=== PATIENT | female | born 1945 | race Caucasian/White ===

== ENCOUNTER → 2016-07-06 | Outpatient (CLI) | payer MEDICARE ==
[2015-05-23 11:00] VITALS: BP 144/55
[~2016-07-06] MED LIST: ATOR20TA58 PO; BUPR150T20 PO; CALC-67 PO; CHOL100013 PO; DILT180C2 PO; FLUO20CA16 PO; FURO20TA3 PO; HYDR-2666 PO; HYDR-2678 PO; LEVO137T3 PO; LISI10TA2 PO; LUTE6CAP3 PO; METO25TA9 PO; NAPR500T3 PO; OMEG-33 PO; OMEP40CA5 PO; OXYC-244 PO; POTA10TA31 PO; VERA40TA PO; VIT1CAPS12 PO; ZOLP10TA PO
--- NOTE | 2016-07-06 11:16 | KCIC ---
Bilateral digital screening mammograms with CAD: HISTORY COMPARISON Comparison is made to previous studies dated 06/05/2015 and 05/06/2014. FINDINGS Breast density category B. The skin and nipples show no abnormalities. No abnormal lymph nodes are seen in the axilla. The breast parenchyma shows scattered fibroglandular density. There continues to be some nodularity in the anterior right breast which has not changed. There also continues to be some asymmetric parenchyma in the upper outer quadrants bilaterally which has not changed. There are no new dominant masses, suspicious calcifications or architectural distortions. Benign appearing calcifications are present IMPRESSION there continues to be some No evidence of malignancy. Recommend routine annual mammographic screening. This study was interpreted with the benefit of Computerized Aided Detection (CAD). Mammography is not 100% sensitive in detecting breast cancer. Therefore, a self breast exam and a clinical breast exam are very important. A negative mammogram does not negate a clinically suspicious finding and should not result in a delay in biopsying a clinically suspicious abnormality. BI-RADS category 2. Benign. This patient's information has been entered into a reminder system for the patient to be notified with the results of this examination and a target date for her next mammograms. Electronically signed by: Luciana Rangel MD (Jul 06, 2016 11:14:38)
== END | disposition home or self-care (01) ==
LOC: KCIC MAMMO 10:18
PROVIDERS: ATTEND Obstetrics & Gynecology
DX: Z12.31 Encounter for screening mammogram for malignant neoplasm of breast (principal)
CPT/HCPCS: G0202; 77067

== ENCOUNTER 2016-10-16 15:17 | Inpatient (IN) | payer MEDICARE ==
[~2016-10-16] VITALS: Ht 154.9 cm; Wt 78.9 kg
[~2016-10-16 15:17] MED LIST changes: +CALC-31 PO; -CALC-67 PO; -HYDR-2666 PO; +HYDR-2758 PO; -OXYC-244 PO; +OXYC-327 PO
[2016-10-16] MEDS ORDERED: IPRATRPIUM/ALBUTEROL 0.5/2.5MG 3 ML NEBU. NEB ONE (15:45)
[2016-10-16 16:14] LABS: BASO % 0 % (0-3); EOS % 2 % (0-3); HEMATOCRIT 37.3 % (36.0-47.0); LYMPH # 1.6 x10^3/uL (1.0-4.8); LYMPH % 15 % (24-48); MEAN CORPUSCULAR HEMOGLOBIN 31 pg (25-35); MEAN CORPUSCULAR HGB CONC 35 g/dL (31-37); MEAN CORPUSCULAR VOLUME 89 fL (79-100); MONO % 8 % (0-9); NEUT % 75 % (31-73); PLATELET COUNT 162 x10^3/uL (140-400); RED BLOOD COUNT 4.17 x10^6/uL (3.50-5.40); RED CELL DISTRIBUTION WIDTH 15.6 % (11.5-14.5); WHITE BLOOD COUNT 10.4 x10^3/uL (4.0-11.0)
--- NOTE | 2016-10-16 16:22 | PHYS DOC ---
Past Medical History Past Medical History: COPD, Depression, GERD, High Cholesterol, Hypertension, Hypothyroid, Other Additional Past Medical Histor: bradycardia, lung fibroids Past Surgical History: Tonsillectomy Additional Past Surgical Histo: X 2 BACK SURGERIES,RIGHT SHOULDER SURGERY, BENIGN BREAST BIOPSY,RIGHT LUNG Alcohol Use: Rarely Drug Use: None Adult General Chief Complaint Chief Complaint: SHORTNESS OF BREATH HPI HPI 70-year-old female presenting to the emergency department today with bradycardia and shortness of breath. She been short of breath for the past 3 days. She has a history of COPD and recently finished her prednisone. She is also had an upper respiratory tract infection recently as well. Location lungs. Duration intermittent. No alleviating or exacerbating factors. She has had a history of bradycardia in the past which her doctors thought was because she took too many medications. She is on diltiazem. Review of systems is negative for abdominal pain nausea vomiting diaphoresis. All other review of systems is negative unless otherwise noted in history of present illness. Pertinent physical exam findings: Lungs are wheezing bilaterally. No crackles. Bradycardic without a murmur. Otherwise soft nontender abdomen. The remainder the exam is unremarkable. ED course: 70-year-old female presenting with bradycardia. Patient's heart rate was in the 50s upon arrival. She was having significant wheezing bilaterally she was given a DuoNeb therapy. Otherwise labs were obtained along with chest x- ray. On reexamination the patient's lungs had improved. Because of the patient' s bradycardia felt that a short telemetry monitoring would be appropriate. Unfortunately at this time the patient does not meet acute inpatient criteria. The patient was then admitted to our hospital for further evaluation workup and care. Cardiology consult placed. Review of Systems Review of Systems SEE ABOVE. Current Medications Current Medications Current Medications Medications (Trade) Dose Ordered Sig/Jon Start Time Stop Time Status Last Admin Dose Admin Albuterol/ Ipratropium (Duoneb) 3 ml 1X ONCE 10/16/16 15:45 10/16/16 15:48 DC 10/16/16 16:47 3 ML Allergies Allergies Allergies Coded Allergies Type Severity Reaction Last Updated Verified iodine Allergy Severe 01/15/14 Yes shellfish derived Allergy Severe Rash 06/05/13 Yes Pentazocine Lactate Allergy Intermediate Rash 06/05/13 Yes ropinirole Allergy Intermediate 12/25/14 No tramadol Allergy Intermediate Nausea and Vomiting 12/20/14 No varenicline Allergy Intermediate 12/25/14 No Physical Exam Physical Exam Constitutional: Well developed, well nourished, no acute distress, non-toxic appearance. HENT: Normocephalic, atraumatic, bilateral external ears normal, oropharynx moist, no oral exudates, nose normal. [] Eyes: PERRLA, EOMI, conjunctiva normal, no discharge. Neck: Normal range of motion, no tenderness, supple, no stridor. Cardiovascular:Heart rate regular rhythm, no murmur [] Lungs & Thorax: see above Abdomen: Bowel sounds normal, soft, no tenderness, no masses, no pulsatile masses. [] Skin: Warm, dry, no erythema, no rash. [] Back: No tenderness, no CVA tenderness. Extremities: No tenderness, no cyanosis, no clubbing, ROM intact, no edema. [] Neurologic: Alert and oriented X 3, normal motor function, normal sensory function, no focal deficits noted. [] Psychologic: Affect normal, judgement normal, mood normal. [] Current Patient Data Vital Signs Vital Signs Date Time Temp Pulse Resp B/P (MAP) Pulse Ox O2 Delivery O2 Flow Rate FiO2 10/16/16 16:49 Room Air 10/16/16 16:48 60 127/63 (84) 95 10/16/16 15:17 98.1 24 98.1 Lab Values Laboratory Tests Test 10/16/16 16:00 White Blood Count 10.4 x10^3/uL (4.0-11.0) Red Blood Count 4.17 x10^6/uL (3.50-5.40) Hemoglobin 13.0 g/dL (12.0-15.5) Hematocrit 37.3 % (36.0-47.0) Mean Corpuscular Volume 89 fL (79-100) Mean Corpuscular Hemoglobin 31 pg (25-35) Mean Corpuscular Hemoglobin Concent 35 g/dL (31-37) Red Cell Distribution Width 15.6 % (11.5-14.5) H Platelet Count 162 x10^3/uL (140-400) Neutrophils (%) (Auto) 75 % (31-73) H Lymphocytes (%) (Auto) 15 % (24-48) L Monocytes (%) (Auto) 8 % (0-9) Eosinophils (%) (Auto) 2 % (0-3) Basophils (%) (Auto) 0 % (0-3) Neutrophils # (Auto) 7.8 x10^3uL (1.8-7.7) H Lymphocytes # (Auto) 1.6 x10^3/uL (1.0-4.8) Monocytes # (Auto) 0.8 x10^3/uL (0.0-1.1) Eosinophils # (Auto) 0.2 x10^3/uL (0.0-0.7) Basophils # (Auto) 0.0 x10^3/uL (0.0-0.2) Sodium Level 136 mmol/L (136-145) Potassium Level 3.9 mmol/L (3.5-5.1) Chloride Level 99 mmol/L (98-107) Carbon Dioxide Level 24 mmol/L (21-32) Anion Gap 13 (6-14) Blood Urea Nitrogen 27 mg/dL (7-20) H Creatinine 1.1 mg/dL (0.6-1.0) H Estimated GFR (Cockcroft-Gault) 48.8 Glucose Level 98 mg/dL (70-99) Calcium Level 8.7 mg/dL (8.5-10.1) Total Bilirubin 0.4 mg/dL (0.2-1.0) Direct Bilirubin 0.1 mg/dL (0.0-0.2) Aspartate Amino Transferase (AST) 97 U/L (15-37) H Alanine Aminotransferase (ALT) 70 U/L (14-59) H Alkaline Phosphatase 69 U/L (46-116) Troponin I Quantitative < 0.017 ng/mL (0.000-0.055) GW-Tcm-M-Type Natriuretic Peptide 320 pg/mL (0-124) H Total Protein 6.7 g/dL (6.4-8.2) Albumin 3.2 g/dL (3.4-5.0) L Lipase 254 U/L (73-393) Laboratory Tests 10/16/16 16:00 Laboratory Tests 10/16/16 16:00 EKG EKG Sinus rhythm with a bradycardic rate. ST segments congruent. Otherwise unremarkable. Reviewed by myself. Radiology/Procedures Radiology/Procedures Chest x-ray reviewed by myself shows no obvious infiltrate or pneumothorax present. No obvious acute cardiopulmonary process present.[] Course & Med Decision Making Course & Med Decision Making Pertinent Labs and Imaging studies reviewed. (See chart for details) [] Dragon Disclaimer Dragon Disclaimer This electronic medical record was generated, in whole or in part, using a voice recognition dictation system. Departure Departure Impression: Primary Impression: Bradycardia Additional Impression: COPD exacerbation Disposition: ADMITTED INPATIENT Admitting Physician: Eladia Reddy Condition: STABLE Referrals: ROLO CLAYTON APRN (PCP) Problem Qualifiers MIKHAIL COLLINS MD Oct 16, 2016 16:22
[2016-10-16 16:41] LABS: CALCIUM 8.7 mg/dL (8.5-10.1); CREATININE 1.1 mg/dL (0.6-1.0); GFR 48.8; POTASSIUM 3.9 mmol/L (3.5-5.1)
[2016-10-16 16:51] LABS: ALBUMIN 3.2 g/dL (3.4-5.0); DIRECT BILIRUBIN 0.1 mg/dL (0.0-0.2); TOTAL BILIRUBIN 0.4 mg/dL (0.2-1.0); TOTAL PROTEIN 6.7 g/dL (6.4-8.2)
[2016-10-16] MEDS ORDERED: FLUT1DIS3 IH (17:17)
[2016-10-16 19:15] VITALS: BP 128/52
[2016-10-16] MEDS ORDERED: IPRATRPIUM/ALBUTEROL 0.5/2.5MG 3 ML NEBU. NEB PRN (19:15)
[2016-10-16] MEDS ORDERED: ACETAMINOPHEN 325 MG TABLET. PO PRN (19:15)
[2016-10-16] MEDS: IBUPROFEN 600 MG TABLET. PO PRN (22:15)
[2016-10-16 23:51] VITALS: BP 112/42
[2016-10-17 03:13] VITALS: BP 137/48
[2016-10-17] MEDS ORDERED: OLME40TA16 PO (05:34)
[2016-10-17] MEDS ORDERED: ASPI-630 PO (05:34)
[2016-10-17] MEDS ORDERED: METO25TA4 PO (05:34)
[2016-10-17] MEDS: IBUPROFEN 600 MG TABLET. PO PRN ×3 (05:44→21:22)
[2016-10-17 07:00] VITALS: BP 137/59
--- NOTE | 2016-10-17 08:56 | RAD ---
EXAM: Chest one view. HISTORY: Shortness of breath, hypotension. COMPARISON: 05/21/2015. FINDINGS: A frontal view of the chest is obtained. There is a lung suture line in the right apex with mild right-sided volume loss. There is mild scarring in the right base. There are no confluent infiltrates. There is no pneumothorax or pleural effusion. The heart is mildly enlarged. There are atherosclerotic calcifications of the aorta. Instrumented anterior cervical discectomy and fusion changes are noted. Chronic right rib fractures are noted. IMPRESSION: 1. Mild cardiomegaly.
[2016-10-17 09:52] LABS: BILIRUBIN,URINE NEGATIVE (NEG); GLUCOSE,URINE NEGATIVE (NEG); NITRITE,URINE NEGATIVE (NEG); PROTEIN,URINE NEGATIVE (NEG-TRACE); UROBILINOGEN,URINE 0.2 mg/dL (0.2 mg/dL)
[2016-10-17 10:04] LABS: BACTERIA,URINE 0 /HPF (0-FEW); RBC,URINE 0 /HPF (0-2); SQUAMOUS EPITHELIAL CELL,UR FEW /LPF; WBC,URINE 0 /HPF (0-4)
[2016-10-17 10:50] VITALS: BP 138/63
--- NOTE | 2016-10-17 12:27 | EKG ---
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
--- NOTE | 2016-10-17 13:30 | PDOC ---
OBJECTIVE Vital Signs Vital Signs Date Time Temp Pulse Resp B/P (MAP) Pulse Ox O2 Delivery O2 Flow Rate FiO2 10/17/16 10:50 97.6 70 16 138/63 (88) 95 Room Air 97.6 10/17/16 08:00 Room Air 10/17/16 07:00 97.7 68 14 137/59 (85) 94 Room Air 97.7 10/17/16 03:13 97.8 39 16 137/48 (77) 94 Room Air 97.8 10/16/16 23:51 98.1 39 16 112/42 (65) 96 Room Air 98.1 10/16/16 21:14 Room Air 10/16/16 20:00 Room Air 10/16/16 19:42 Room Air 10/16/16 19:15 97.7 63 18 128/52 (77) 94 Room Air 97.7 10/16/16 17:18 60 145/63 (90) 94 10/16/16 16:49 Room Air 10/16/16 16:48 60 127/63 (84) 95 10/16/16 16:18 60 158/56 (90) 95 10/16/16 15:48 66 124/60 (81) 93 10/16/16 15:18 52 103/58 (73) 96 Room Air 10/16/16 15:17 98.1 53 24 103/58 (73) 95 Room Air 98.1 ASSESSMENT/PLAN Assessment/Plan [id number] H&P dictated Problems: COMMENT Lab Laboratory Tests Test 10/16/16 16:00 10/17/16 08:29 White Blood Count 10.4 x10^3/uL (4.0-11.0) Red Blood Count 4.17 x10^6/uL (3.50-5.40) Hemoglobin 13.0 g/dL (12.0-15.5) Hematocrit 37.3 % (36.0-47.0) Mean Corpuscular Volume 89 fL (79-100) Mean Corpuscular Hemoglobin 31 pg (25-35) Mean Corpuscular Hemoglobin Concent 35 g/dL (31-37) Red Cell Distribution Width 15.6 % (11.5-14.5) Platelet Count 162 x10^3/uL (140-400) Neutrophils (%) (Auto) 75 % (31-73) Lymphocytes (%) (Auto) 15 % (24-48) Monocytes (%) (Auto) 8 % (0-9) Eosinophils (%) (Auto) 2 % (0-3) Basophils (%) (Auto) 0 % (0-3) Neutrophils # (Auto) 7.8 x10^3uL (1.8-7.7) Lymphocytes # (Auto) 1.6 x10^3/uL (1.0-4.8) Monocytes # (Auto) 0.8 x10^3/uL (0.0-1.1) Eosinophils # (Auto) 0.2 x10^3/uL (0.0-0.7) Basophils # (Auto) 0.0 x10^3/uL (0.0-0.2) Sodium Level 136 mmol/L (136-145) Potassium Level 3.9 mmol/L (3.5-5.1) Chloride Level 99 mmol/L (98-107) Carbon Dioxide Level 24 mmol/L (21-32) Anion Gap 13 (6-14) Blood Urea Nitrogen 27 mg/dL (7-20) Creatinine 1.1 mg/dL (0.6-1.0) Estimated GFR (Cockcroft-Gault) 48.8 Glucose Level 98 mg/dL (70-99) Calcium Level 8.7 mg/dL (8.5-10.1) Total Bilirubin 0.4 mg/dL (0.2-1.0) Direct Bilirubin 0.1 mg/dL (0.0-0.2) Aspartate Amino Transf (AST/SGOT) 97 U/L (15-37) Alanine Aminotransferase (ALT/SGPT) 70 U/L (14-59) Alkaline Phosphatase 69 U/L (46-116) Troponin I Quantitative < 0.017 ng/mL (0.000-0.055) IC-Soj-C-Type Natriuretic Peptide 320 pg/mL (0-124) Total Protein 6.7 g/dL (6.4-8.2) Albumin 3.2 g/dL (3.4-5.0) Lipase 254 U/L (73-393) Urine Collection Type Unknown Urine Color Yellow Urine Clarity Clear Urine pH 6.0 Urine Specific [place] 1.010 Urine Protein Negative mg/dL (NEG-TRACE) Urine Glucose (UA) Negative mg/dL (NEG) Urine Ketones (Stick) Negative mg/dL (NEG) Urine Blood Negative (NEG) Urine Nitrite Negative (NEG) Urine Bilirubin Negative (NEG) Urine Urobilinogen Dipstick 0.2 mg/dL (0.2 mg/dL) Urine Leukocyte Esterase Negative (NEG) Urine RBC 0 /HPF (0-2) Urine WBC 0 /HPF (0-4) Urine Squamous Epithelial Cells Few /LPF Urine Bacteria 0 /HPF (0-FEW) Urine Hyaline Casts Few /HPF Urine Mucus Mod /LPF JAMI PEARL MD Oct 17, 2016 13:30
--- NOTE | 2016-10-17 14:09 | PREOP HP ---
DATE OF SERVICE: 10/16/2016 ROOM: #672. HISTORY OF PRESENT ILLNESS: The patient is a 70-year-old lady who presented to the Emergency Room complaining of shortness of breath. She does have previous history of COPD, and she recently finished a course of tapering prednisone and was feeling better, but suddenly she became more short of breath, and she also felt weak and noticed that her pulse has been slow. She has had an episode of bradycardia in the past which apparently was documented. 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 She states that she has been treated in the past for tachycardia, and she has been found to be bradycardic on several occasions in the past. She does have high blood pressure, and she does take medication to control that including diltiazem and metoprolol both of which can cause bradycardia. However, she also has mentioned that she does have a previous history of tachycardia. PAST MEDICAL HISTORY: Significant for peripheral neuropathy, atrial fibrillation, hyperlipidemia, hypertension, COPD, asthma, interstitial lung disease, irritable bowel syndrome, and gastroesophageal reflux disease. She has had a benign breast biopsy, osteoarthritis, rotator cuff and cervical stenosis, osteoporosis, degenerative disk disease, carpal tunnel syndrome, history of arthroscopy on her right knee, bunionectomy on the left, back pain, hypothyroidism, thyroidectomy for thyroid cancer, parathyroidectomy, and depression. She also stated that she has history of throat cancer 5 years ago, tonsillectomy, adenoidectomy, neck pain, and macular degeneration. SOCIAL HISTORY: She was an alcoholic at some point and had been sober since 2011. She quit smoking 3 years ago, but has smoked for 40 years before that. IMMUNIZATION: She had her pneumonia vaccine and flu shot. FAMILY HISTORY: Positive for lung cancer in her father and hypertension. REVIEW OF SYSTEMS: CONSTITUTIONAL: Denies fever or chills. She is having fatigue. She denies weight loss. HEENT: Denies visual changes. Denies sore throat or congestion. RESPIRATORY: Denies cough, but she does have shortness of breath and wheezes at times. CARDIAC: She noticed bradycardia. Denies chest pain. GASTROINTESTINAL: She denies abdominal pain, nausea, vomiting, diarrhea, or constipation. GENITOURINARY: She does have stress incontinence. Denies dysuria. MUSCULOSKELETAL: She does have chronic back pain and osteoarthritis pain. NEUROLOGY: Denies any deficit. PHYSICAL EXAMINATION: GENERAL: She is alert and oriented, in no acute distress, cooperative. HEENT: Tympanic membranes clear. Pharynx clear. No sinus tenderness. NECK: Supple. No JVD, bruit, or cervical adenopathy. LUNGS: Clear to auscultation at this point. HEART: Regular rate and rhythm. ABDOMEN: Soft, nontender, no organomegaly, no masses, no bruits, no ascites. EXTREMITIES: No edema, clubbing, or cyanosis. NEUROLOGIC: Intact. IMPRESSION: 1. Bradycardia in the 30s, rule out sick sinus syndrome. Hold her blood pressure medications and consult Cardiology. 2. Acute exacerbation of chronic obstructive pulmonary disease, recently finished steroids. We will continue with bronchodilators. 3. Prerenal azotemia. 4. Hypertension and hypertensive cardiovascular disease. 5. Peripheral neuropathy. 6. Hypothyroidism. We will check her TSH. She is on thyroid supplementation after a thyroidectomy. 7. Degenerative joint disease. 8. Other medical problems as mentioned above in her past medical history. Dr. Zhu will resume her care in the morning. JAMI PEARL MD DR: YESENIA/chato JOB#: [id number] / [id number]
[2016-10-17] MEDS ORDERED: ALBUTEROL SULFATE 2.5 MG/3 ML NEBU. NEB PRN (14:30)
[2016-10-17 15:11] VITALS: BP 121/51
[2016-10-17] MEDS: ALBUTEROL SULFATE 2.5 MG/3 ML NEBU. NEB SCH ×2 (15:18→20:45)
[2016-10-17] MEDS: FLUoxetine HCL 20 MG CAPSULE PO SCH (15:19)
[2016-10-17] MEDS: ASPIRIN CHEWABLE 81 MG TABLET. PO SCH (15:20)
[2016-10-17] MEDS: LOSARTAN POTASSIUM 50 MG TABLET. PO SCH (15:20)
[2016-10-17] MEDS: PANTOPRAZOLE 40 MG TABLET.DR. PO SCH (15:20)
--- NOTE | 2016-10-17 15:40 | RAD ---
EXAM: Bilateral lower extremity venous Doppler. HISTORY: Bilateral lower extremity pain/swelling. Shortness of breath. COMPARISON: None. FINDINGS: Grayscale and Doppler analysis of the both lower extremity deep venous systems was performed with graded compression and augmentation. The common femoral, greater saphenous, superficial femoral, popliteal and calf veins were assessed. There is no evidence of deep venous thrombosis. A popliteal cyst on the left measures 3.8 x 3.7 x 1.7 cm. IMPRESSION: 1. No evidence of deep venous thrombosis. 2. Small left popliteal cyst.
[2016-10-17] MEDS ORDERED: ZOLPIDEM 5 MG TABLET. PO PRN (17:45)
[2016-10-17 19:57] VITALS: BP 124/58
[2016-10-17] MEDS: BUDESONIDE 0.5 MG/2 ML NEBU. NEB SCH (20:45)
[2016-10-17] MEDS ORDERED: NON FORMULARY ITEM (Fluticasone/Salmeterol (Advair 250-50 Diskus) 1 PUFF) IH SCH (21:00)
[2016-10-17] MEDS: ZOLPIDEM 5 MG TABLET. PO PRN (21:23)
[2016-10-17 23:19] VITALS: BP 135/55
[2016-10-18 03:00] VITALS: BP 118/43
[2016-10-18] MEDS: FLUoxetine HCL 20 MG CAPSULE PO SCH (05:59)
[2016-10-18] MEDS ORDERED: LUTEIN 6 MG PO SCH (06:00)
[2016-10-18] MEDS ORDERED: LEVOTHYROXINE 137 MCG TABLET PO SCH (06:00)
[2016-10-18] MEDS: IBUPROFEN 600 MG TABLET. PO PRN ×3 (06:01→23:36)
[2016-10-18] MEDS: LEVOTHYROXINE 125 MCG TABLET PO SCH (06:01)
[2016-10-18 06:25] LABS: HEMATOCRIT 36.4 % (36.0-47.0); HEMOGLOBIN 12.5 g/dL (12.0-15.5); RED BLOOD COUNT 4.03 x10^6/uL (3.50-5.40); RED CELL DISTRIBUTION WIDTH 15.5 % (11.5-14.5); WHITE BLOOD COUNT 5.5 x10^3/uL (4.0-11.0)
[2016-10-18 06:48] LABS: ALBUMIN 3.1 g/dL (3.4-5.0); ALBUMIN/GLOBULIN RATIO 0.9 (1.0-1.7); CALCIUM 8.5 mg/dL (8.5-10.1); GFR 54.5; POTASSIUM 4.1 mmol/L (3.5-5.1); TOTAL BILIRUBIN 0.5 mg/dL (0.2-1.0); TOTAL PROTEIN 6.7 g/dL (6.4-8.2)
[2016-10-18 07:00] VITALS: BP 155/71
[2016-10-18] MEDS: BUDESONIDE 0.5 MG/2 ML NEBU. NEB SCH ×2 (08:04→20:38)
[2016-10-18] MEDS: ALBUTEROL SULFATE 2.5 MG/3 ML NEBU. NEB SCH ×3 (08:04→20:38)
[2016-10-18] MEDS: ASPIRIN CHEWABLE 81 MG TABLET. PO SCH (08:30)
[2016-10-18] MEDS: PANTOPRAZOLE 40 MG TABLET.DR. PO SCH (08:30)
[2016-10-18] MEDS: LOSARTAN POTASSIUM 50 MG TABLET. PO SCH (08:31)
--- NOTE | 2016-10-18 08:43 | PDOC ---
GENERAL General: vss and afebrile. awake and alert and sob. diffusely wheezy with pulse of 60 currently. beta ruel and calcium channel ruel on hold with bradycardia on admission. await cardiology opinion on same but suspect sss with history of tachyarrythmias for years. Problems: VITAL SIGNS Vital Signs: Vital Signs Date Time Temp Pulse Resp B/P (MAP) Pulse Ox O2 Delivery O2 Flow Rate FiO2 10/18/16 08:31 57 155/71 10/18/16 08:05 Room Air 10/18/16 07:00 98.2 18 95 98.2 I & O I & O Intake and Output 10/18/16 07:00 Intake Total 1380 ml Balance 1380 ml Intake Oral 1380 ml # Voids 6 ALLERGIES Allergies: Allergies Coded Allergies Type Severity Reaction Last Updated Verified iodine Allergy Severe 01/15/14 Yes shellfish derived Allergy Severe Rash 06/05/13 Yes Pentazocine Lactate Allergy Intermediate Rash 06/05/13 Yes ropinirole Allergy Intermediate 12/25/14 No tramadol Allergy Intermediate Nausea and Vomiting 12/20/14 No varenicline Allergy Intermediate 12/25/14 No MEDS Medications: Current Medications Medications (Trade) Dose Ordered Sig/Jon Start Time Stop Time Status Last Admin Dose Admin Acetaminophen (Tylenol) 650 mg PRN Q6HRS PRN 10/16/16 19:15 Albuterol Sulfate (Ventolin Neb Soln) 2.5 mg Q6HRS 10/17/16 18:00 10/18/16 08:04 2.5 MG Albuterol/ Ipratropium (Duoneb) 3 ml PRN QID PRN 10/16/16 19:15 10/17/16 14:27 DC 10/16/16 21:15 3 ML Aspirin (Children'S Aspirin) 81 mg DAILY 10/17/16 14:30 10/18/16 08:30 81 MG Budesonide (Pulmicort) 0.5 mg RTBID 10/17/16 20:00 10/18/16 08:04 0.5 MG Fluoxetine HCl (PROzac) 40 mg DAILY06 10/17/16 15:00 10/18/16 05:59 40 MG Ibuprofen (Motrin) 600 mg PRN Q6HRS PRN 10/16/16 22:15 10/18/16 06:01 600 MG Levothyroxine Sodium (Synthroid) 125 mcg DAILY07 10/18/16 07:00 10/18/16 06:01 125 MCG Losartan Potassium (Cozaar) 100 mg DAILY 10/17/16 15:00 10/18/16 08:31 100 MG Non-Formulary Medication 6 mg DAILY06 10/18/16 06:00 10/18/16 06:00 DC Pantoprazole Sodium (Protonix) 40 mg DAILYAC 10/17/16 16:30 10/18/16 08:30 40 MG Zolpidem Tartrate (Ambien) 5 mg PRN QHS PRN 10/17/16 17:45 UNV LAB Lab: Laboratory Tests Test 10/17/16 14:00 10/18/16 05:55 D-Dimer (Mercedes) 0.45 ug/mlFEU (0.00-0.50) Thyroid Stimulating Hormone (TSH) 2.067 uIU/mL (0.358-3.74) White Blood Count 5.5 x10^3/uL (4.0-11.0) Red Blood Count 4.03 x10^6/uL (3.50-5.40) Hemoglobin 12.5 g/dL (12.0-15.5) Hematocrit 36.4 % (36.0-47.0) Mean Corpuscular Volume 90 fL (79-100) Mean Corpuscular Hemoglobin 31 pg (25-35) Mean Corpuscular Hemoglobin Concent 35 g/dL (31-37) Red Cell Distribution Width 15.5 % (11.5-14.5) Platelet Count 141 x10^3/uL (140-400) Erythrocyte Sedimentation Rate 38 (0-25) Sodium Level 139 mmol/L (136-145) Potassium Level 4.1 mmol/L (3.5-5.1) Chloride Level 104 mmol/L (98-107) Carbon Dioxide Level 31 mmol/L (21-32) Anion Gap 4 (6-14) Blood Urea Nitrogen 19 mg/dL (7-20) Creatinine 1.0 mg/dL (0.6-1.0) Estimated GFR (Cockcroft-Gault) 54.5 BUN/Creatinine Ratio 19 (6-20) Glucose Level 95 mg/dL (70-99) Calcium Level 8.5 mg/dL (8.5-10.1) Total Bilirubin 0.5 mg/dL (0.2-1.0) Aspartate Amino Transf (AST/SGOT) 30 U/L (15-37) Alanine Aminotransferase (ALT/SGPT) 47 U/L (14-59) Alkaline Phosphatase 60 U/L (46-116) Total Protein 6.7 g/dL (6.4-8.2) Albumin 3.1 g/dL (3.4-5.0) Albumin/Globulin Ratio 0.9 (1.0-1.7) DALIA OJEDA MD Oct 18, 2016 08:43
[2016-10-18] MEDS: methylPREDNISolone SOD SUCC PF 40 MG/ML VIAL. IV SCH ×3 (09:22→22:02)
--- NOTE | 2016-10-18 10:50 | PDOC2 ---
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 Reports that in the last few days she remain to have wheezing with some periods of dizziness and also SOA. Denies any leg swelling, chest pain nor palpitations. She has been coughing intermittently. She was taking Cardizem CD 180, metoprolol 25 suppose to be bid but she has been taking only once daily. Upon admission to ED she told me that her HR was in the upper 30s but no symptoms except for her SOA. She has been compliant with her medications. Currently she is sitting up and there has been no episode of significant bradycardia or pauses. PAST MEDICAL HISTORY Past Medical History Cardiovascular: HTN, Hyperlipidemia, Other (Positive for PSVT), venous insufficiency Pulmonary: COPD, Other (Eosinophilic fibrotic lung disease) CENTRAL NERVOUS SYSTEM: Other (No pertinent history) GI: GERD Heme/Onc: No pertinent hx, Cancer Hepatobiliary: No pertinent hx Psych: Anxiety, Depression Musculoskeletal: low back pain, Osteoarthritis Rheumatologic: No pertinent hx Infectious disease: No pertinent hx ENT: No pertinent hx Renal/: No pertinent hx Endocrine: Hypothyroidism (acquired) Dermatology: No pertinent hx PAST SURGICAL HISTORY Past Surgical History Cataract Removal, Tonsillectomy, Other (Lumbar fusion; carpal tunnel syndrome repair, right RTC repair; thyroidectomy), cervical fusion FAMILY HISTORY Family History noncontributory SOCIAL HISTORY Social History Smoke: Quit (>50 years of tobaccoism 1 to 1.5 ppd and now on e cigarrette) Drugs: None Lives: with Family CURRENT MEDICATIONS CURRENT MEDICATIONS Current Medications Medications (Trade) Dose Ordered Sig/Jon Route PRN Reason Start Time Stop Time Status Last Admin Dose Admin Aspirin (Children'S Aspirin) 81 mg DAILY PO 10/17/16 14:30 10/18/16 08:30 Fluoxetine HCl (PROzac) 40 mg DAILY06 PO 10/17/16 15:00 10/18/16 05:59 Losartan Potassium (Cozaar) 100 mg DAILY PO 10/17/16 15:00 10/18/16 08:31 Pantoprazole Sodium (Protonix) 40 mg DAILYAC PO 10/17/16 16:30 10/18/16 08:30 Zolpidem Tartrate (Ambien) 5 mg PRN QHS PRN PO INSOMNIA 10/17/16 14:30 10/17/16 21:23 Albuterol Sulfate (Ventolin Neb Soln) 2.5 mg Q6HRS NEB 10/17/16 18:00 10/18/16 08:04 Budesonide (Pulmicort) 0.5 mg RTBID NEB 10/17/16 20:00 10/18/16 08:04 Levothyroxine Sodium (Synthroid) 125 mcg DAILY07 PO 10/18/16 07:00 10/18/16 06:01 Methylprednisolone Sodium Succinate (SOLU-Medrol 40MG VIAL) 40 mg Q8HRS IV 10/18/16 09:00 10/18/16 09:22 ALLERGIES ALLERGIES: Coded Allergies: iodine (Verified Allergy, Severe, 01/15/14) shellfish derived (Verified Allergy, Severe, Rash, 06/05/13) "horrible vomiting" Pentazocine Lactate (Verified Allergy, Intermediate, Rash, 06/05/13) swelling ropinirole (Unverified Allergy, Intermediate, 12/25/14) tramadol (Unverified Allergy, Intermediate, Nausea and Vomiting, 12/20/14) varenicline (Unverified Allergy, Intermediate, 12/25/14) ROS Review of System 14 point ROS evaluated with pertinent positives noted per HPI PHYSICAL EXAM General: Alert, Oriented X3, Cooperative, No acute distress HEENT: Atraumatic, Mucous membr. moist/pink Lungs: Other (diffuse wheeze) Abdomen: Soft, No tenderness Extremities: No cyanosis, No edema Skin: No breakdown, No significant lesion Neuro: Normal speech, Sensation intact Psych/Mental Status: Mental status NL, Mood NL MUSCULOSKELETAL: Osteoarthritic changes both hands VITALS VITALS Vital Signs Date Time Temp Pulse Resp B/P (MAP) Pulse Ox O2 Delivery O2 Flow Rate FiO2 10/18/16 08:31 57 155/71 10/18/16 08:05 Room Air 10/18/16 07:00 98.2 18 95 98.2 LABS Lab: Laboratory Tests Test 10/17/16 14:00 10/18/16 05:55 D-Dimer (Mercedes) 0.45 ug/mlFEU (0.00-0.50) Thyroid Stimulating Hormone (TSH) 2.067 uIU/mL (0.358-3.74) White Blood Count 5.5 x10^3/uL (4.0-11.0) Red Blood Count 4.03 x10^6/uL (3.50-5.40) Hemoglobin 12.5 g/dL (12.0-15.5) Hematocrit 36.4 % (36.0-47.0) Mean Corpuscular Volume 90 fL (79-100) Mean Corpuscular Hemoglobin 31 pg (25-35) Mean Corpuscular Hemoglobin Concent 35 g/dL (31-37) Red Cell Distribution Width 15.5 % (11.5-14.5) Platelet Count 141 x10^3/uL (140-400) Erythrocyte Sedimentation Rate 38 (0-25) Sodium Level 139 mmol/L (136-145) Potassium Level 4.1 mmol/L (3.5-5.1) Chloride Level 104 mmol/L (98-107) Carbon Dioxide Level 31 mmol/L (21-32) Anion Gap 4 (6-14) Blood Urea Nitrogen 19 mg/dL (7-20) Creatinine 1.0 mg/dL (0.6-1.0) Estimated GFR (Cockcroft-Gault) 54.5 BUN/Creatinine Ratio 19 (6-20) Glucose Level 95 mg/dL (70-99) Calcium Level 8.5 mg/dL (8.5-10.1) Total Bilirubin 0.5 mg/dL (0.2-1.0) Aspartate Amino Transf (AST/SGOT) 30 U/L (15-37) Alanine Aminotransferase (ALT/SGPT) 47 U/L (14-59) Alkaline Phosphatase 60 U/L (46-116) Total Protein 6.7 g/dL (6.4-8.2) Albumin 3.1 g/dL (3.4-5.0) Albumin/Globulin Ratio 0.9 (1.0-1.7) ECHOCARDIOGRAM ECHOCARDIOGRAM <Conclusion> Left ventricle systolic function is normal. The Ejection Fraction is estimated at 55-60%. There is normal LV segmental wall motion. Mild mitral regurgitation. Mild tricuspid regurgitation. The PA pressure was estimated at 27 mmHg. There is no evidence of significant pericardial effusion. DATE: 05/22/15 1309 ASSESSMENT/PLAN ASSESSMENT/PLAN 1. 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 Sinus bradycardia: SOA due to COPD. EKG SB 48 without acute changes. Normal QTc. Vagal episode accentuated by meds. 3. Hypothyroidism 4. HTN: controlled 5. Hx of PSVT Recommendations 1. F/U TTE today. 2. Decrease Cardizem CD to 120 mg po daily. Completely DC metoprolol. Agree with increasing ARB. May start 25 mg po bid of hydralazine if BP remains labile 3. Will follow as needed. Problems: ANDERSON SALMON MD 10/18/16 1456: CARDIAC CONSULT ALLERGIES ALLERGIES: Coded Allergies: iodine (Verified Allergy, Severe, 01/15/14) shellfish derived (Verified Allergy, Severe, Rash, 06/05/13) "horrible vomiting" Pentazocine Lactate (Verified Allergy, Intermediate, Rash, 06/05/13) swelling ropinirole (Unverified Allergy, Intermediate, 12/25/14) tramadol (Unverified Allergy, Intermediate, Nausea and Vomiting, 12/20/14) varenicline (Unverified Allergy, Intermediate, 12/25/14) ASSESSMENT/PLAN ASSESSMENT/PLAN Hina is a pleasant 70-year-old woman that is well known to us from our office. Patient seen and examined. Agree with above nurse practitioner note. Presenting with acute on chronic exacerbation of her pulmonary disease. Incidental bradycardia noted in the setting of hypoxia as well as multiple rate control agents. On examination she has bilateral rhonchi and wheezing. Telemetry does not reveal any evidence of high-grade block and EKGs unremarkable. Plan for discontinuation of metoprolol and down titration of Cardizem. We will use hydralazine as necessary for maintenance of blood pressure. We'll probably send her out on an event monitor closer to discharge and reevaluate the need for a pacemaker on an outpatient basis. Thank you for this consultation. Problems: ARIS BURRELL APRN Oct 18, 2016 10:50 ANDERSON SALMON MD Oct 18, 2016 14:56
[2016-10-18 11:00] VITALS: BP 145/67
[2016-10-18 15:00] VITALS: BP 146/63
--- NOTE | 2016-10-18 15:15 | PDOC ---
PULMONARY PROGRESS NOTES Vitals Vital Signs Date Time Temp Pulse Resp B/P (MAP) Pulse Ox O2 Delivery O2 Flow Rate FiO2 10/18/16 15:00 98.3 81 20 146/63 (90) 94 Room Air 98.3 Labs Laboratory Tests Test 10/16/16 16:00 10/17/16 08:29 10/17/16 14:00 10/18/16 05:55 White Blood Count 10.4 x10^3/uL (4.0-11.0) 5.5 x10^3/uL (4.0-11.0) Red Blood Count 4.17 x10^6/uL (3.50-5.40) 4.03 x10^6/uL (3.50-5.40) Hemoglobin 13.0 g/dL (12.0-15.5) 12.5 g/dL (12.0-15.5) Hematocrit 37.3 % (36.0-47.0) 36.4 % (36.0-47.0) Mean Corpuscular Volume 89 fL (79-100) 90 fL (79-100) Mean Corpuscular Hemoglobin 31 pg (25-35) 31 pg (25-35) Mean Corpuscular Hemoglobin Concent 35 g/dL (31-37) 35 g/dL (31-37) Red Cell Distribution Width 15.6 % (11.5-14.5) 15.5 % (11.5-14.5) Platelet Count 162 x10^3/uL (140-400) 141 x10^3/uL (140-400) Neutrophils (%) (Auto) 75 % (31-73) Lymphocytes (%) (Auto) 15 % (24-48) Monocytes (%) (Auto) 8 % (0-9) Eosinophils (%) (Auto) 2 % (0-3) Basophils (%) (Auto) 0 % (0-3) Neutrophils # (Auto) 7.8 x10^3uL (1.8-7.7) Lymphocytes # (Auto) 1.6 x10^3/uL (1.0-4.8) Monocytes # (Auto) 0.8 x10^3/uL (0.0-1.1) Eosinophils # (Auto) 0.2 x10^3/uL (0.0-0.7) Basophils # (Auto) 0.0 x10^3/uL (0.0-0.2) Sodium Level 136 mmol/L (136-145) 139 mmol/L (136-145) Potassium Level 3.9 mmol/L (3.5-5.1) 4.1 mmol/L (3.5-5.1) Chloride Level 99 mmol/L (98-107) 104 mmol/L (98-107) Carbon Dioxide Level 24 mmol/L (21-32) 31 mmol/L (21-32) Anion Gap 13 (6-14) 4 (6-14) Blood Urea Nitrogen 27 mg/dL (7-20) 19 mg/dL (7-20) Creatinine 1.1 mg/dL (0.6-1.0) 1.0 mg/dL (0.6-1.0) Estimated GFR (Cockcroft-Gault) 48.8 54.5 Glucose Level 98 mg/dL (70-99) 95 mg/dL (70-99) Calcium Level 8.7 mg/dL (8.5-10.1) 8.5 mg/dL (8.5-10.1) Total Bilirubin 0.4 mg/dL (0.2-1.0) 0.5 mg/dL (0.2-1.0) Direct Bilirubin 0.1 mg/dL (0.0-0.2) Aspartate Amino Transf (AST/SGOT) 97 U/L (15-37) 30 U/L (15-37) Alanine Aminotransferase (ALT/SGPT) 70 U/L (14-59) 47 U/L (14-59) Alkaline Phosphatase 69 U/L (46-116) 60 U/L (46-116) Troponin I Quantitative < 0.017 ng/mL (0.000-0.055) KA-Jpe-D-Type Natriuretic Peptide 320 pg/mL (0-124) Total Protein 6.7 g/dL (6.4-8.2) 6.7 g/dL (6.4-8.2) Albumin 3.2 g/dL (3.4-5.0) 3.1 g/dL (3.4-5.0) Lipase 254 U/L (73-393) Urine Collection Type Unknown Urine Color Yellow Urine Clarity Clear Urine pH 6.0 Urine Specific [place] 1.010 Urine Protein Negative mg/dL (NEG-TRACE) Urine Glucose (UA) Negative mg/dL (NEG) Urine Ketones (Stick) Negative mg/dL (NEG) Urine Blood Negative (NEG) Urine Nitrite Negative (NEG) Urine Bilirubin Negative (NEG) Urine Urobilinogen Dipstick 0.2 mg/dL (0.2 mg/dL) Urine Leukocyte Esterase Negative (NEG) Urine RBC 0 /HPF (0-2) Urine WBC 0 /HPF (0-4) Urine Squamous Epithelial Cells Few /LPF Urine Bacteria 0 /HPF (0-FEW) Urine Hyaline Casts Few /HPF Urine Mucus Mod /LPF D-Dimer (Mercedes) 0.45 ug/mlFEU (0.00-0.50) Thyroid Stimulating Hormone (TSH) 2.067 uIU/mL (0.358-3.74) Erythrocyte Sedimentation Rate 38 (0-25) BUN/Creatinine Ratio 19 (6-20) Albumin/Globulin Ratio 0.9 (1.0-1.7) Laboratory Tests Test 10/18/16 05:55 White Blood Count 5.5 x10^3/uL (4.0-11.0) Red Blood Count 4.03 x10^6/uL (3.50-5.40) Hemoglobin 12.5 g/dL (12.0-15.5) Hematocrit 36.4 % (36.0-47.0) Mean Corpuscular Volume 90 fL (79-100) Mean Corpuscular Hemoglobin 31 pg (25-35) Mean Corpuscular Hemoglobin Concent 35 g/dL (31-37) Red Cell Distribution Width 15.5 % (11.5-14.5) Platelet Count 141 x10^3/uL (140-400) Erythrocyte Sedimentation Rate 38 (0-25) Sodium Level 139 mmol/L (136-145) Potassium Level 4.1 mmol/L (3.5-5.1) Chloride Level 104 mmol/L (98-107) Carbon Dioxide Level 31 mmol/L (21-32) Anion Gap 4 (6-14) Blood Urea Nitrogen 19 mg/dL (7-20) Creatinine 1.0 mg/dL (0.6-1.0) Estimated GFR (Cockcroft-Gault) 54.5 BUN/Creatinine Ratio 19 (6-20) Glucose Level 95 mg/dL (70-99) Calcium Level 8.5 mg/dL (8.5-10.1) Total Bilirubin 0.5 mg/dL (0.2-1.0) Aspartate Amino Transf (AST/SGOT) 30 U/L (15-37) Alanine Aminotransferase (ALT/SGPT) 47 U/L (14-59) Alkaline Phosphatase 60 U/L (46-116) Total Protein 6.7 g/dL (6.4-8.2) Albumin 3.1 g/dL (3.4-5.0) Albumin/Globulin Ratio 0.9 (1.0-1.7) Medications Active Scripts Medications Dose Route/Sig Max Daily Dose Days Date Category Dose Instructions Aspirin 81 Mg Tab.chew 81 Mg PO DAILY 10/17/16 Reported Metoprolol Tartrate 25 Mg Tablet 25 Mg PO DAILY 10/17/16 Reported Olmesartan Medoxomil 40 Mg Tablet 40 Mg PO DAILY 10/17/16 Reported Advair 250-50 Diskus (Fluticasone/Salmeterol) 1 Each Disk.w.dev 1 Puff IH BID 10/16/16 Reported Cardizem Cd (Diltiazem Hcl) 180 Mg Cap.er.24h 1 Cap PO DAILY 05/23/15 Rx Ambien (Zolpidem Tartrate) 10 Mg Tablet 10 Mg PO PRN DAILY 06/05/13 Reported LAST DOSE GIVEN: DATE:12-24-14 TIME:9:00 p.m. NEXT DOSE DUE: DATE:12-25-14 TIME:9:00 p.m. Lutein 6 Mg Capsule 6 Mg PO DAILY06 06/05/13 Reported Not given while in hosp. May resume at home as directed Omeprazole 40 Mg Capsule.dr 25 Mg PO DAILY06 06/05/13 Reported LAST DOSE GIVEN: DATE:12-25-14 TIME:6:00 a.m. NEXT DOSE DUE: DATE:12-26-14 TIME:6:00 a.m. Potassium Chloride 10 Meq Tab.er.prt 10 Meq PO DAILY06 06/05/13 Reported LAST DOSE GIVEN: DATE:12-25-14 TIME:6:00 a.m. NEXT DOSE DUE: DATE:12-26-14 TIME:6:00 a.m. Furosemide 20 Mg Tablet 40 Mg PO DAILY06 06/05/13 Reported LAST DOSE GIVEN: DATE:12-25-14 TIME:6:00 a.m. NEXT DOSE DUE: DATE:12-26-14 TIME:6:00 a.m. Prozac (Fluoxetine Hcl) 20 Mg Capsule 40 Mg PO DAILY06 06/05/13 Reported LAST DOSE GIVEN: DATE:12-25-14 TIME:6:00 a.m. NEXT DOSE DUE: DATE:12-26-14 TIME:6:00 a.m. Naproxen 500 Mg Tablet 500 Mg PO BID 06/05/13 Reported Not given in hosp. may resume at home as directed. Levothyroxine Sodium 137 Mcg Tablet 125 Mcg PO DAILY06 06/05/13 Reported LAST DOSE GIVEN: DATE:12-25-14 TIME:6:00 a.m. NEXT DOSE DUE: DATE:12-26-14 TIME:6:00 a.m. Impression . AECOPD BRADYCARDIA AGREE WITH CURRENT RX JIM KING MD Oct 18, 2016 15:15
[2016-10-18 19:36] VITALS: BP 158/66
[2016-10-18] MEDS: ZOLPIDEM 5 MG TABLET. PO PRN (22:02)
[2016-10-18 23:34] VITALS: BP 147/54
[2016-10-19] MEDS: ALBUTEROL SULFATE 2.5 MG/3 ML NEBU. NEB SCH ×5 (00:44→23:10)
--- NOTE | 2016-10-19 02:42 | ACF ---
Admission Forms Criteria COPD Clinical Indications for Admission to Inpatient Care (Place 'X' for any and all applicable criteria): Admission is indicated for ANY ONE of the following (1)(2)(3): [X ]I. Acute exacerbation by high-risk comorbidity (e.g., pneumonia, dysrhythmia, heart failure, pleural effusion, pneumothorax) or severe underlying COPD (e.g., steroid dependent) [ ]II. Inpatient admission required rather than observation care (see Chronic Obstructive Pulmonary Disease: Observation Care) because of ANY ONE of the following: [ ]a) New or pre-existing signs or symptoms of COPD (eg, dyspnea or Tachypnea at rest or with minimal activity) that persist despite outpatient and observation care treatment [ ]b) New-onset hypoxemia (room air SaO2 less than 90%, PO2 less than 60 mm Hg (8.0 kPa)) that persists despite outpatient and observation care treatment [ ]c) Worsening of pre-existing hypoxemia (eg, new or increased requirement for supplemental oxygen to maintain oxygenation at baseline level) that persists despite outpatient and observation care treatment, with oxygen treatment needs performable only in acute inpatient setting [ ]d) Hypercarbia (PCO2 greater than 40 mm Hg (5.3 kPa))-induced respiratory acidosis (pH less than 7.35) that persists despite outpatient and observation care treatment [ ]e) Supplemental oxygen or respiratory treatments for over 24 hours that are performable only in acute inpatient setting [ ]f) Chest tube placement with active evacuation (e.g., suction, drainage) (5) [ ]g) Other condition, treatment or monitoring requiring inpatient admission [ ]III. Planned invasive surgical or diagnostic procedures requiring acute- care hospitalization [ ]IV. Acute respiratory failure (e.g., uncompensated hypercarbia, severe hypoxemia) [ ]V. Severe comorbid condition (e.g., severe steroid myopathy, acute vertebral fracture) that has acutely worsened pulmonary function [ ]. Confusion state, lethargy, obtundation, stupor or coma Extended stay beyond goal length of stay may be needed for (31)(32): [ ]a ) Respiratory Failure. [ ]b) Severe or persisting hypoxemia or hypercarbia [ ]c) Severe or persistent dyspnea [ ]d) Comorbidities (e.g. chronic heart failure, atrial fibrillation with rapid response, pneumonia) [ ]e) Malnutrition The original [facility] content created by [facility] has been revised. The portions of the content which have been revised are identified through the use of italic text or in bold, and [facility] has neither reviewed nor approved the modified material. All other unmodified content is copyright [facility]. Please see references footnoted in the original [facility] edition 2016 Admission Criteria Met?: Yes JOCELYN DHILLON Oct 19, 2016 02:42
[2016-10-19 03:17] VITALS: BP 138/57
[2016-10-19] MEDS: methylPREDNISolone SOD SUCC PF 40 MG/ML VIAL. IV SCH ×3 (05:05→22:07)
[2016-10-19] MEDS: FLUoxetine HCL 20 MG CAPSULE PO SCH (05:05)
[2016-10-19] MEDS: LEVOTHYROXINE 125 MCG TABLET PO SCH (06:22)
[2016-10-19 07:00] VITALS: BP 150/72
[2016-10-19] MEDS: BUDESONIDE 0.5 MG/2 ML NEBU. NEB SCH ×2 (07:51→23:10)
--- NOTE | 2016-10-19 08:08 | PDOC ---
GENERAL General: late note. saw yesterday and was quite wheezy and solumedrol added and pulmonary consult ordered. continue watching pulse, 60 at time of my exam, and await cardiology opinion. Problems: VITAL SIGNS Vital Signs: Vital Signs Date Time Temp Pulse Resp B/P (MAP) Pulse Ox O2 Delivery O2 Flow Rate FiO2 10/19/16 07:53 97 Room Air 10/19/16 07:00 98.7 92 20 150/72 (98) 98.7 I & O I & O Intake and Output 10/19/16 06:59 Intake Total 1620 ml Balance 1620 ml Intake Oral 1620 ml # Voids 6 ALLERGIES Allergies: Allergies Coded Allergies Type Severity Reaction Last Updated Verified iodine Allergy Severe 01/15/14 Yes shellfish derived Allergy Severe Rash 06/05/13 Yes Pentazocine Lactate Allergy Intermediate Rash 06/05/13 Yes ropinirole Allergy Intermediate 12/25/14 No tramadol Allergy Intermediate Nausea and Vomiting 12/20/14 No varenicline Allergy Intermediate 12/25/14 No MEDS Medications: Current Medications Medications (Trade) Dose Ordered Sig/Jon Start Time Stop Time Status Last Admin Dose Admin Acetaminophen (Tylenol) 650 mg PRN Q6HRS PRN 10/16/16 19:15 Albuterol Sulfate (Ventolin Neb Soln) 2.5 mg Q6HRS 10/17/16 18:00 10/19/16 07:50 2.5 MG Albuterol/ Ipratropium (Duoneb) 3 ml PRN QID PRN 10/16/16 19:15 10/17/16 14:27 DC 10/16/16 21:15 3 ML Aspirin (Children'S Aspirin) 81 mg DAILY 10/17/16 14:30 10/18/16 08:30 81 MG Budesonide (Pulmicort) 0.5 mg RTBID 10/17/16 20:00 10/19/16 07:51 0.5 MG Diltiazem HCl (Cardizem 24hr Cd) 120 mg DAILY 10/18/16 14:00 10/18/16 14:23 120 MG Fluoxetine HCl (PROzac) 40 mg DAILY06 10/17/16 15:00 10/19/16 05:05 40 MG Ibuprofen (Motrin) 600 mg PRN Q6HRS PRN 10/16/16 22:15 10/18/16 23:36 600 MG Levothyroxine Sodium (Synthroid) 125 mcg DAILY07 10/18/16 07:00 10/19/16 06:22 125 MCG Losartan Potassium (Cozaar) 100 mg DAILY 10/17/16 15:00 10/18/16 08:31 100 MG Methylprednisolone Sodium Succinate (SOLU-Medrol 40MG VIAL) 40 mg Q8HRS 10/18/16 09:00 10/19/16 05:05 40 MG Non-Formulary Medication 6 mg DAILY06 10/18/16 06:00 10/18/16 06:00 DC Pantoprazole Sodium (Protonix) 40 mg DAILYAC 10/17/16 16:30 10/18/16 08:30 40 MG Zolpidem Tartrate (Ambien) 5 mg PRN QHS PRN 10/17/16 17:45 DALIA MARIE MD Oct 19, 2016 08:08
--- NOTE | 2016-10-19 08:10 | PDOC ---
GENERAL General: vss and afebrile. awake and alert. no further bradycardia. wheezing and breathing much improved. epigastric and ruq bloating and gas about 30 minutes after eating for some time and will eval for gallbladder pathology and get GI eval while here. likely dc am if continues to improve. Problems: VITAL SIGNS Vital Signs: Vital Signs Date Time Temp Pulse Resp B/P (MAP) Pulse Ox O2 Delivery O2 Flow Rate FiO2 10/19/16 07:53 97 Room Air 10/19/16 07:00 98.7 92 20 150/72 (98) 98.7 I & O I & O Intake and Output 10/19/16 06:59 Intake Total 1620 ml Balance 1620 ml Intake Oral 1620 ml # Voids 6 ALLERGIES Allergies: Allergies Coded Allergies Type Severity Reaction Last Updated Verified iodine Allergy Severe 01/15/14 Yes shellfish derived Allergy Severe Rash 06/05/13 Yes Pentazocine Lactate Allergy Intermediate Rash 06/05/13 Yes ropinirole Allergy Intermediate 12/25/14 No tramadol Allergy Intermediate Nausea and Vomiting 12/20/14 No varenicline Allergy Intermediate 12/25/14 No MEDS Medications: Current Medications Medications (Trade) Dose Ordered Sig/Jon Start Time Stop Time Status Last Admin Dose Admin Acetaminophen (Tylenol) 650 mg PRN Q6HRS PRN 10/16/16 19:15 Albuterol Sulfate (Ventolin Neb Soln) 2.5 mg Q6HRS 10/17/16 18:00 10/19/16 07:50 2.5 MG Albuterol/ Ipratropium (Duoneb) 3 ml PRN QID PRN 10/16/16 19:15 10/17/16 14:27 DC 10/16/16 21:15 3 ML Aspirin (Children'S Aspirin) 81 mg DAILY 10/17/16 14:30 10/18/16 08:30 81 MG Budesonide (Pulmicort) 0.5 mg RTBID 10/17/16 20:00 10/19/16 07:51 0.5 MG Diltiazem HCl (Cardizem 24hr Cd) 120 mg DAILY 10/18/16 14:00 10/18/16 14:23 120 MG Fluoxetine HCl (PROzac) 40 mg DAILY06 10/17/16 15:00 10/19/16 05:05 40 MG Ibuprofen (Motrin) 600 mg PRN Q6HRS PRN 10/16/16 22:15 10/18/16 23:36 600 MG Levothyroxine Sodium (Synthroid) 125 mcg DAILY07 10/18/16 07:00 10/19/16 06:22 125 MCG Losartan Potassium (Cozaar) 100 mg DAILY 10/17/16 15:00 10/18/16 08:31 100 MG Methylprednisolone Sodium Succinate (SOLU-Medrol 40MG VIAL) 40 mg Q8HRS 10/18/16 09:00 10/19/16 05:05 40 MG Non-Formulary Medication 6 mg DAILY06 10/18/16 06:00 10/18/16 06:00 DC Pantoprazole Sodium (Protonix) 40 mg DAILYAC 10/17/16 16:30 10/18/16 08:30 40 MG Zolpidem Tartrate (Ambien) 5 mg PRN QHS PRN 10/17/16 17:45 DALIA MARIE MD Oct 19, 2016 08:10
[2016-10-19] MEDS: PANTOPRAZOLE 40 MG TABLET.DR. PO SCH (08:51)
[2016-10-19] MEDS: IBUPROFEN 600 MG TABLET. PO PRN ×2 (08:52→19:47)
[2016-10-19] MEDS: ASPIRIN CHEWABLE 81 MG TABLET. PO SCH (08:52)
[2016-10-19] MEDS: LOSARTAN POTASSIUM 50 MG TABLET. PO SCH (08:52)
--- NOTE | 2016-10-19 08:59 | PDOC ---
PULMONARY PROGRESS NOTES Subjective pt with no increase soa feels better Vitals Vital Signs Date Time Temp Pulse Resp B/P (MAP) Pulse Ox O2 Delivery O2 Flow Rate FiO2 10/19/16 08:52 92 150/72 10/19/16 08:00 97 Room Air 10/19/16 07:00 98.7 20 98.7 ROS: No Nausea, No Chest Pain, No Abdominal Pain, No Increase Cough General: Alert Lungs: Clear Cardiovascular: S1, S2 Abdomen: Soft Neuro Exam: Alert Extremities: No Edema Labs Laboratory Tests Test 10/17/16 14:00 10/18/16 05:55 D-Dimer (Mercedes) 0.45 ug/mlFEU (0.00-0.50) Thyroid Stimulating Hormone (TSH) 2.067 uIU/mL (0.358-3.74) White Blood Count 5.5 x10^3/uL (4.0-11.0) Red Blood Count 4.03 x10^6/uL (3.50-5.40) Hemoglobin 12.5 g/dL (12.0-15.5) Hematocrit 36.4 % (36.0-47.0) Mean Corpuscular Volume 90 fL (79-100) Mean Corpuscular Hemoglobin 31 pg (25-35) Mean Corpuscular Hemoglobin Concent 35 g/dL (31-37) Red Cell Distribution Width 15.5 % (11.5-14.5) Platelet Count 141 x10^3/uL (140-400) Erythrocyte Sedimentation Rate 38 (0-25) Sodium Level 139 mmol/L (136-145) Potassium Level 4.1 mmol/L (3.5-5.1) Chloride Level 104 mmol/L (98-107) Carbon Dioxide Level 31 mmol/L (21-32) Anion Gap 4 (6-14) Blood Urea Nitrogen 19 mg/dL (7-20) Creatinine 1.0 mg/dL (0.6-1.0) Estimated GFR (Cockcroft-Gault) 54.5 BUN/Creatinine Ratio 19 (6-20) Glucose Level 95 mg/dL (70-99) Calcium Level 8.5 mg/dL (8.5-10.1) Total Bilirubin 0.5 mg/dL (0.2-1.0) Aspartate Amino Transf (AST/SGOT) 30 U/L (15-37) Alanine Aminotransferase (ALT/SGPT) 47 U/L (14-59) Alkaline Phosphatase 60 U/L (46-116) Total Protein 6.7 g/dL (6.4-8.2) Albumin 3.1 g/dL (3.4-5.0) Albumin/Globulin Ratio 0.9 (1.0-1.7) Medications Active Scripts Medications Dose Route/Sig Max Daily Dose Days Date Category Dose Instructions Aspirin 81 Mg Tab.chew 81 Mg PO DAILY 10/17/16 Reported Metoprolol Tartrate 25 Mg Tablet 25 Mg PO DAILY 10/17/16 Reported Olmesartan Medoxomil 40 Mg Tablet 40 Mg PO DAILY 10/17/16 Reported Advair 250-50 Diskus (Fluticasone/Salmeterol) 1 Each Disk.w.dev 1 Puff IH BID 10/16/16 Reported Cardizem Cd (Diltiazem Hcl) 180 Mg Cap.er.24h 1 Cap PO DAILY 05/23/15 Rx Ambien (Zolpidem Tartrate) 10 Mg Tablet 10 Mg PO PRN DAILY 06/05/13 Reported LAST DOSE GIVEN: DATE:12-24-14 TIME:9:00 p.m. NEXT DOSE DUE: DATE:12-25-14 TIME:9:00 p.m. Lutein 6 Mg Capsule 6 Mg PO DAILY06 06/05/13 Reported Not given while in hosp. May resume at home as directed Omeprazole 40 Mg Capsule.dr 25 Mg PO DAILY06 06/05/13 Reported LAST DOSE GIVEN: DATE:12-25-14 TIME:6:00 a.m. NEXT DOSE DUE: DATE:12-26-14 TIME:6:00 a.m. Potassium Chloride 10 Meq Tab.er.prt 10 Meq PO DAILY06 06/05/13 Reported LAST DOSE GIVEN: DATE:12-25-14 TIME:6:00 a.m. NEXT DOSE DUE: DATE:12-26-14 TIME:6:00 a.m. Furosemide 20 Mg Tablet 40 Mg PO DAILY06 06/05/13 Reported LAST DOSE GIVEN: DATE:12-25-14 TIME:6:00 a.m. NEXT DOSE DUE: DATE:12-26-14 TIME:6:00 a.m. Prozac (Fluoxetine Hcl) 20 Mg Capsule 40 Mg PO DAILY06 06/05/13 Reported LAST DOSE GIVEN: DATE:12-25-14 TIME:6:00 a.m. NEXT DOSE DUE: DATE:12-26-14 TIME:6:00 a.m. Naproxen 500 Mg Tablet 500 Mg PO BID 06/05/13 Reported Not given in hosp. may resume at home as directed. Levothyroxine Sodium 137 Mcg Tablet 125 Mcg PO DAILY06 06/05/13 Reported LAST DOSE GIVEN: DATE:12-25-14 TIME:6:00 a.m. NEXT DOSE DUE: DATE:12-26-14 TIME:6:00 a.m. Impression . 1. Acute exacerbation of chronic obstructive pulmonary disease. 2. Acute nonspecific bronchitis. 3. Bradycardia. 4. 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 5. Tobacco dependence in remission. 6. E-cigarette use. 7. Hypertension. Plan . home in am ok 1. Recommend continue steroids, nebulized treatments. 2. Follow cardiology input. 3. GI prophylaxis. 4. Continue home medications. JIM KING MD Oct 19, 2016 08:59
--- NOTE | 2016-10-19 09:13 | RAD ---
Examination: Ultrasound abdomen complete History: History of abdominal pain Comparison: None available Findings: The pancreas, aorta, IVC are poorly visualized due to bowel gas. There is diffuse increased echogenicity noted throughout the liver likely hepatic steatosis. The liver measures 18.6 cm. No evidence of gallstones identified within the gallbladder. The gallbladder wall thickness is within normal limits. The common bile duct measures 2.9 mm in transverse dimension. The right kidney measures 12.9 x 4.9 x 4.7 cm The left kidney measures 11.6 x 4.7 x 5.8 cm. The spleen measures 9.8 cm. Impression: Increased echogenicity noted throughout the liver likely hepatic steatosis.
--- NOTE | 2016-10-19 09:35 | PDOC2 ---
GI CONSULT Reason For Consult: RUQ bloating HPI: HPI: 70 y/o female admitted w/ SOA, wheezing, dizziness, and bradycardia. Cardiology has seen, echocardiogram today and possible DC tomorrow, pulm following for COPD exacerbation, GI consult requested this morning for upper abdominal discomfort and post-prandial bloating. Per office records, chronic symptoms include bloating, nausea, occasional vomiting, and irregular bowel habits. Last colonoscopy in 10/2015 showed 4 adenomatous polyps, moderate extrinsic stenosis, and internal hemorrhoids. Last EGD in 06/2011 showed erythema int he lower esophagus (path w/ inflammation) , esophageal candidiasis, bile gastritis (no H. pylori), and normal duodenum. On Prilosec QD w/ control of heartburn, has tried Xifaxan for possible SIBO and FODMAPs diet w/o relief. Usually 3-4 small stools daily, currently denies constipation or diarrhea. Martha take ibuprofen frequently for back pain. PMH: PMH: HTN, HLD, PSVT, venous insufficiency, COPD/eosinophilic fibrotic lung disease, GERD, colon polyps, thyroid cancer, anxiety/depression, OA, LBP, cataract removal, tonsillectomy, back and neck surgeries, CTR, rotator cuff repair, lung biopsy, tubal ligation FH: Family History: Cancer (ovarian), DM, Hypertension, Other (colon polyps, diverticulitis, liver disease) Social History: Smoke: Quit ALCOHOL: occassional Drugs: None ROS: GEN: Denies fevers, chills, sweats HEENT: Denies blurred vision, sore throat CV: Denies chest pain RESP: +SOA GI: Per HPI : Denies hematuria, dysuria ENDO: +weight gain NEURO: +dizziness MSK: Denies weakness, joint pain/swelling SKIN: Denies jaundice, pruritus Vitals: Vitals: Vital Signs Date Time Temp Pulse Resp B/P (MAP) Pulse Ox O2 Delivery O2 Flow Rate FiO2 10/19/16 08:52 92 150/72 10/19/16 08:00 97 Room Air 10/19/16 07:00 98.7 20 98.7 Labs: Labs: Please see EMR. Allergies: Coded Allergies: iodine (Verified Allergy, Severe, 01/15/14) shellfish derived (Verified Allergy, Severe, Rash, 06/05/13) "horrible vomiting" Pentazocine Lactate (Verified Allergy, Intermediate, Rash, 06/05/13) swelling ropinirole (Unverified Allergy, Intermediate, 12/25/14) tramadol (Unverified Allergy, Intermediate, Nausea and Vomiting, 12/20/14) varenicline (Unverified Allergy, Intermediate, 12/25/14) Medications: Current Medications Medications (Trade) Dose Ordered Sig/Jon Route PRN Reason Start Time Stop Time Status Last Admin Dose Admin Diltiazem HCl (Cardizem 24hr Cd) 120 mg DAILY PO 10/18/16 14:00 10/19/16 08:51 Imaging: Imaging: Abd US 10/19/16 Impression: Increased echogenicity noted throughout the liver likely hepatic steatosis. LE US IMPRESSION: 1. No evidence of deep venous thrombosis. 2. Small left popliteal cyst. CXR IMPRESSION: 1. Mild cardiomegaly. PE: GEN: NAD HEENT: Atraumatic, PERRL LUNGS: decreased HEART: RRR ABD: ?distended, some mild RUQ/epigastric discomfort (vague) EXTREMITY: No edema SKIN: No rashes, no jaundice NEURO/PSYCH: A & O 3 A/P: A/P: COPD exacerbation, bradycardia -per cardio/pulm Upper abd discomfort, post-prandial bloating, irregular bowel habits - chronic H/o GERD, NSAID use -heartburn controlled w/ PPI QD -last EGD 2011 CRC screen, h/o adenomatous polyps, FH colon polyps -last colonoscopy 2015 -- Chronic symptoms, will review w/ Dr. Chahal. VASILIY SEE Oct 19, 2016 09:35
--- NOTE | 2016-10-19 09:46 | CARD ---
APPROVED REPORT EXAM: Two-dimensional and M-mode echocardiogram with Doppler and color Doppler. Other Information Quality : Good INDICATION Dyspnea 2D DIMENSIONS RVDd3.0 (2.9-3.5cm)Left Atrium(2D)4.0 (1.6-4.0cm) IVSd1.1 (0.7-1.1cm)Aortic Root(2D)2.4 (2.0-3.7cm) LVDd4.7 (3.9-5.9cm)LVOT Diameter2.0 (1.8-2.4cm) PWd1.2 (0.7-1.1cm)LVDs3.3 (2.5-4.0cm) FS (%) 30.0 %SV59.1 ml LVEF(%)57.2 (>50%) Aortic Valve AoV Peak Can.224.9cm/sAoV VTI41.8cm AO Peak GR.20.2mmHgLVOT Peak Can.163.5cm/s LVOT VTI 30.40cmAO Mean GR.11mmHg ZACHARY (VMAX)2.12er1KFE (VTI)2.24cm2 Mitral Valve MV E Hlvjwyvx321.3cm/sMV DECEL QOTH515go MV A Uqyvpqkq057.2cm/sMV OHA70pt E/A Ratio0.8MVA (PHT)3.03cm2 TDI E/Lateral E'12.2E/Medial E'17.0 Pulmonary Valve PV Peak Wzprdtxq164.4cm/sPV Peak Grad.10mmHg Tricuspid Valve TR P. Yersgbyi251pn/sRAP LRKVJUQL9dxSw TR Peak Gr.60xqEkAVXO27iaAg Pulmonary Vein S1 Sucfsdcs587.9cm/sD2 Nftitshs73.3cm/s LEFT VENTRICLE The left ventricle is normal size. There is mild concentric left ventricular hypertrophy. The left ve ntricular systolic function is normal and the ejection fraction is within normal range. The Ejection Fraction is 55-60%. There is normal LV segmental wall motion. Transmitral Doppler flow pattern is Gra de I-abnormal relaxation pattern. RIGHT VENTRICLE The right ventricle is normal size. The right ventricular systolic function is normal. ATRIA The left atrium is mildly dilated. The right atrium size is normal. The interatrial septum is intact with no evidence for an atrial septal defect or patent foramen ovale as noted on 2-D or Doppler imagi ng. AORTIC VALVE The aortic valve is normal in structure and function. Doppler and Color Flow revealed no significant aortic regurgitation. There is no significant aortic valvular stenosis. MITRAL VALVE The mitral valve is normal in structure and function. There is no evidence of mitral valve prolapse. There is no mitral valve stenosis. Doppler and Color-flow revealed trace to mild mitral regurgitation . TRICUSPID VALVE The tricuspid valve is normal in structure and function. Doppler and Color Flow revealed mild tricusp id regurgitation. There is moderate-severe pulmonary hypertension.The PA pressure was estimated at 58 mmHg. There is no tricuspid valve stenosis. PULMONIC VALVE Doppler and Color Flow revealed no pulmonic valvular regurgitation. There is no pulmonic valvular gio nosis. GREAT VESSELS The aortic root is normal in size. The ascending aorta is normal in size. The IVC is normal in size a nd collapses >50% with inspiration. PERICARDIAL EFFUSION There is no evidence of significant pericardial effusion. Critical Notification Critical Value: No <Conclusion> The left ventricular systolic function is normal and the ejection fraction is within normal range. Th e Ejection Fraction is 55-60%. There is normal LV segmental wall motion. Doppler and Color Flow revealed mild tricuspid regurgitation. There is moderate-severe pulmonary hype rtension.The PA pressure was estimated at 58 mmHg.
[2016-10-19 11:00] VITALS: BP 130/61
--- NOTE | 2016-10-19 12:37 | CONS ---
DATE OF CONSULTATION: 10/16/2016 ATTENDING PHYSICIAN: Dr. Zhu. REASON FOR CONSULTATION: The patient is seen in pulmonary consultation at the request of Dr. Zhu for increasing shortness of air. HISTORY OF PRESENT ILLNESS: The patient is a 70-year-old well known to me from previous hospitalization and underlying COPD. She also has some ill-defined infiltrate. She has had nodular type of infiltrate. She has had previous lung biopsy compatible with histiocytosis X. The patient has not been seen in the office for quite some time. She presented with increasing shortness of breath over the last 2-3 days, but she has been fatigued and unable to tolerate activities of daily living for approximately a month. She was found to be bradycardic. She is currently being evaluated. She had a chest x-ray, which I reviewed. There is no acute infiltrates. There is cardiomegaly. She had venous Dopplers of the lower extremities, which revealed no evidence of deep venous thrombosis. PAST MEDICAL HISTORY: 1. COPD. 2. Nodular infiltrates, status post lung biopsy compatible with a histiocytosis X (Langerhans cell histiocytosis), pulmonary Langerhans cells histiocytosis. 3. Obstructive sleep apnea. 4. Hyperlipidemia. 5. Hypertension. 6. Hypothyroidism. 7. Stretch out obesity. PAST SURGICAL HISTORY: As above. In addition, she had back surgery and shoulder surgery. SOCIAL HISTORY: She smokes e-cigarettes. Denies any alcohol intake. REVIEW OF SYSTEMS: As indicated above, otherwise, a 10-point system was reviewed and negative. MEDICATIONS: List was reviewed. ALLERGIES: TO MULTIPLE MEDICATIONS. Please see the list. PHYSICAL EXAMINATION: GENERAL: The patient was in no respiratory distress. VITAL SIGNS: Stable. O2 saturation currently on room air was 94%. HEENT: Eyes, the sclerae were nonicteric. NECK: Jugular venous distention was not elevated. No lymphadenopathy. CHEST: Full expansion. LUNGS: Expiratory wheeze with no rhonchi. CARDIOVASCULAR: Regular rate and rhythm with S1, S2, no S3. ABDOMEN: Soft, nontender, nondistended. EXTREMITIES: No clubbing, cyanosis or edema. LABORATORY DATA: Reviewed. White count was normal. Hemoglobin and hematocrit were normal. Chest x-ray as indicated above. IMPRESSION: 1. Acute exacerbation of chronic obstructive pulmonary disease. 2. Acute nonspecific bronchitis. 3. Bradycardia. 4. 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 5. Tobacco dependence in remission. 6. E-cigarette use. 7. Hypertension. PLAN: 1. Recommend continue steroids, nebulized treatments. 2. Follow cardiology input. 3. GI prophylaxis. 4. Continue home medications. I do appreciate the privilege in sharing in this patient's care. JIM KING MD DR: JACOB/chato JOB#: [id number] / [id number]
[2016-10-19] MEDS ORDERED: fentaNYL 25MCG/HR PATCH 1 PATCH PATCH.TD72 TD SCH (13:00)
[2016-10-19 15:00] VITALS: BP 149/60
[2016-10-19 19:00] VITALS: BP 130/62
[2016-10-19] MEDS: ZOLPIDEM 5 MG TABLET. PO PRN (22:06)
[2016-10-19 23:19] VITALS: BP 139/52
[2016-10-20] MEDS: ALBUTEROL SULFATE 2.5 MG/3 ML NEBU. NEB SCH ×2 (06:00→12:32)
[2016-10-20] MEDS: FLUoxetine HCL 20 MG CAPSULE PO SCH (06:07)
[2016-10-20] MEDS: LEVOTHYROXINE 125 MCG TABLET PO SCH (06:07)
[2016-10-20] MEDS: methylPREDNISolone SOD SUCC PF 40 MG/ML VIAL. IV SCH (06:07)
[2016-10-20 07:10] VITALS: BP 152/68
[2016-10-20] MEDS: BUDESONIDE 0.5 MG/2 ML NEBU. NEB SCH (08:00)
--- NOTE | 2016-10-20 08:09 | PDOC ---
GENERAL General: see discharge summary. Problems: VITAL SIGNS Vital Signs: Vital Signs Date Time Temp Pulse Resp B/P (MAP) Pulse Ox O2 Delivery O2 Flow Rate FiO2 10/20/16 07:10 98.1 73 20 152/68 (96) 96 Room Air 98.1 I & O I & O Intake and Output 10/20/16 07:00 Intake Total 1600 ml Output Total 3 ml Balance 1597 ml Intake Oral 1600 ml Output Urine Total 3 ml # Voids 3 ALLERGIES Allergies: Allergies Coded Allergies Type Severity Reaction Last Updated Verified iodine Allergy Severe 01/15/14 Yes shellfish derived Allergy Severe Rash 06/05/13 Yes Pentazocine Lactate Allergy Intermediate Rash 06/05/13 Yes ropinirole Allergy Intermediate 12/25/14 No tramadol Allergy Intermediate Nausea and Vomiting 12/20/14 No varenicline Allergy Intermediate 12/25/14 No MEDS Medications: Current Medications Medications (Trade) Dose Ordered Sig/Jon Start Time Stop Time Status Last Admin Dose Admin Acetaminophen (Tylenol) 650 mg PRN Q6HRS PRN 10/16/16 19:15 Albuterol Sulfate (Ventolin Neb Soln) 2.5 mg Q6HRS 10/17/16 18:00 10/19/16 23:10 2.5 MG Albuterol/ Ipratropium (Duoneb) 3 ml PRN QID PRN 10/16/16 19:15 10/17/16 14:27 DC 10/16/16 21:15 3 ML Aspirin (Children'S Aspirin) 81 mg DAILY 10/17/16 14:30 10/19/16 08:52 81 MG Budesonide (Pulmicort) 0.5 mg RTBID 10/17/16 20:00 10/19/16 23:10 0.5 MG Diltiazem HCl (Cardizem 24hr Cd) 120 mg DAILY 10/18/16 14:00 10/19/16 08:51 120 MG Fentanyl (Duragesic 25mcg/ Hr Patch) 1 patch Q3DAYS 10/20/16 09:00 Fluoxetine HCl (PROzac) 40 mg DAILY06 10/17/16 15:00 10/20/16 06:07 40 MG Ibuprofen (Motrin) 600 mg PRN Q6HRS PRN 10/16/16 22:15 10/19/16 19:47 600 MG Levothyroxine Sodium (Synthroid) 125 mcg DAILY07 10/18/16 07:00 10/20/16 06:07 125 MCG Losartan Potassium (Cozaar) 100 mg DAILY 10/17/16 15:00 10/19/16 08:52 100 MG Methylprednisolone Sodium Succinate (SOLU-Medrol 40MG VIAL) 40 mg Q8HRS 10/18/16 09:00 10/20/16 06:07 40 MG Non-Formulary Medication 6 mg DAILY06 10/18/16 06:00 10/18/16 06:00 DC Pantoprazole Sodium (Protonix) 40 mg DAILYAC 10/17/16 16:30 10/19/16 08:51 40 MG Zolpidem Tartrate (Ambien) 5 mg PRN QHS PRN 10/17/16 17:45 DALIA MARIE MD Oct 20, 2016 08:09
[2016-10-20] MEDS: ASPIRIN CHEWABLE 81 MG TABLET. PO SCH (08:41)
[2016-10-20] MEDS: PANTOPRAZOLE 40 MG TABLET.DR. PO SCH (08:42)
[2016-10-20] MEDS: LOSARTAN POTASSIUM 50 MG TABLET. PO SCH (08:42)
[2016-10-20] MEDS ORDERED: fentaNYL 25MCG/HR PATCH 1 PATCH PATCH.TD72 TD SCH (09:00)
--- NOTE | 2016-10-20 10:16 | PDOC ---
PULMONARY PROGRESS NOTES Subjective pt with no increase soa feels better Vitals Vital Signs Date Time Temp Pulse Resp B/P (MAP) Pulse Ox O2 Delivery O2 Flow Rate FiO2 10/20/16 08:42 73 152/68 10/20/16 08:41 22 97 Room Air 10/20/16 07:10 98.1 98.1 ROS: No Nausea, No Chest Pain, No Abdominal Pain, No Increase Cough General: Alert Lungs: Clear Cardiovascular: S1, S2 Abdomen: Soft Neuro Exam: Alert Extremities: No Edema Medications Active Scripts Medications Dose Route/Sig Max Daily Dose Days Date Category Dose Instructions Aspirin 81 Mg Tab.chew 81 Mg PO DAILY 10/17/16 Reported Metoprolol Tartrate 25 Mg Tablet 25 Mg PO DAILY 10/17/16 Reported Olmesartan Medoxomil 40 Mg Tablet 40 Mg PO DAILY 10/17/16 Reported Advair 250-50 Diskus (Fluticasone/Salmeterol) 1 Each Disk.w.dev 1 Puff IH BID 10/16/16 Reported Cardizem Cd (Diltiazem Hcl) 180 Mg Cap.er.24h 1 Cap PO DAILY 05/23/15 Rx Ambien (Zolpidem Tartrate) 10 Mg Tablet 10 Mg PO PRN DAILY 06/05/13 Reported LAST DOSE GIVEN: DATE:12-24-14 TIME:9:00 p.m. NEXT DOSE DUE: DATE:12-25-14 TIME:9:00 p.m. Lutein 6 Mg Capsule 6 Mg PO DAILY06 06/05/13 Reported Not given while in hosp. May resume at home as directed Omeprazole 40 Mg Capsule.dr 25 Mg PO DAILY06 06/05/13 Reported LAST DOSE GIVEN: DATE:12-25-14 TIME:6:00 a.m. NEXT DOSE DUE: DATE:12-26-14 TIME:6:00 a.m. Potassium Chloride 10 Meq Tab.er.prt 10 Meq PO DAILY06 06/05/13 Reported LAST DOSE GIVEN: DATE:12-25-14 TIME:6:00 a.m. NEXT DOSE DUE: DATE:12-26-14 TIME:6:00 a.m. Furosemide 20 Mg Tablet 40 Mg PO DAILY06 06/05/13 Reported LAST DOSE GIVEN: DATE:12-25-14 TIME:6:00 a.m. NEXT DOSE DUE: DATE:12-26-14 TIME:6:00 a.m. Prozac (Fluoxetine Hcl) 20 Mg Capsule 40 Mg PO DAILY06 06/05/13 Reported LAST DOSE GIVEN: DATE:12-25-14 TIME:6:00 a.m. NEXT DOSE DUE: DATE:12-26-14 TIME:6:00 a.m. Naproxen 500 Mg Tablet 500 Mg PO BID 06/05/13 Reported Not given in hosp. may resume at home as directed. Levothyroxine Sodium 137 Mcg Tablet 125 Mcg PO DAILY06 06/05/13 Reported LAST DOSE GIVEN: DATE:12-25-14 TIME:6:00 a.m. NEXT DOSE DUE: DATE:12-26-14 TIME:6:00 a.m. Impression . 1. Acute exacerbation of chronic obstructive pulmonary disease. 2. Acute nonspecific bronchitis. 3. Bradycardia. 4. 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 5. Tobacco dependence in remission. 6. E-cigarette use. 7. Hypertension. Plan . home in am ok 1. Recommend continue steroids, nebulized treatments. 2. Follow cardiology input. 3. GI prophylaxis. 4. Continue home medications. JIM KING MD Oct 20, 2016 10:16
[2016-10-20 10:45] VITALS: BP 150/62
--- NOTE | 2016-10-20 11:35 | PDOC ---
Subjective: Subjective: Doing okay, says leaving at 1:00. Objective: Vital Signs: Vital Signs Date Time Temp Pulse Resp B/P (MAP) Pulse Ox O2 Delivery O2 Flow Rate FiO2 10/20/16 10:45 98.1 75 20 150/62 (91) 95 Room Air 98.1 Imaging: Echocardiogram <Conclusion> The left ventricular systolic function is normal and the ejection fraction is within normal range. The Ejection Fraction is 55-60%. There is normal LV segmental wall motion. Doppler and Color Flow revealed mild tricuspid regurgitation. There is moderate- severe pulmonary hypertension.The PA pressure was estimated at 58 mmHg. PE: GEN: NAD, up to chair LUNGS: decreased HEART: RRR ABD: soft, non-tender NEURO/PSYCH: A & O 3 A/P: Upper abd discomfort, post-prandial bloating, irregular bowel habits - chronic -- Continue optimal dosing of PPI. VASILIY SEE Oct 20, 2016 11:35
--- NOTE | 2016-10-20 20:10 | DS ---
DATE OF DISCHARGE: 10/20/2016 PRIMARY DIAGNOSIS: Acute exacerbation of chronic obstructive pulmonary disease with shortness of breath. ADDITIONAL DIAGNOSIS: Bradycardia with a history of atrial fibrillation in the past and hypertension. CHIEF COMPLAINT AND HISTORY OF PRESENT ILLNESS: This is a 70-year-old white female admitted through the Emergency Room with shortness of breath and wheezing with an exacerbation of COPD but also complicated by bradycardia with pulses down in 30s and 40s. SUMMARY OF STAY: The patient was admitted and treated for exacerbation of chronic obstructive pulmonary disease with improvement of the same. Her metoprolol was held during her stay, and Cardizem dose was decreased with Cardiology's direction. She had no further bradyarrhythmias, was ____ back to her baseline on the day of discharge, and it was felt she could be dismissed with close outpatient followup. She did complain of abdominal pain and bloating after eating, and had a negative ultrasound of the abdomen. We will need to do ____ scan on followup in the office ____ is negative. This may be a case of irritable bowel ____ DISPOSITION: The patient was discharged home. DIET: As tolerated. ACTIVITY: As tolerated. Office beginning next week. DISCHARGE MEDICATIONS: Listed on the medical record and have been addressed. She is basically taking her home medicines with metoprolol being discontinued, Lasix being discontinued, the potassium being discontinued, and should be on a prednisone taper 10 mg, #31. DALIA OJEDA MD DR: SUNDAR/chato JOB#: [id number] / [id number]
== END 2016-10-20 13:22 | disposition home or self-care (01) | DRG 202 ==
LOC: ER 15:17 → 6 SOUTH 17:07 → UNDOADMOB 17:07 → OBSVTOIN 10-19 13:33
PROVIDERS: ADMIT Family Medicine; ATTEND Family Medicine
DX: J20.9 Acute bronchitis, unspecified (principal); J44.1 Chronic obstructive pulmonary disease with (acute) exacerbation; R00.1 Bradycardia, unspecified; E78.5 Hyperlipidemia, unspecified; F32.9 Major depressive disorder, single episode, unspecified; F41.9 Anxiety disorder, unspecified; G47.33 Obstructive sleep apnea (adult) (pediatric); G62.9 Polyneuropathy, unspecified; I11.9 Hypertensive heart disease without heart failure; I48.91 Unspecified atrial fibrillation; I87.2 Venous insufficiency (chronic) (peripheral); J84.10 Pulmonary fibrosis, unspecified; K21.9 Gastro-esophageal reflux disease without esophagitis; K58.9 Irritable bowel syndrome, unspecified; K76.0 Fatty (change of) liver, not elsewhere classified; F17.211 Nicotine dependence, cigarettes, in remission; E66.9 Obesity, unspecified; G56.00 Carpal tunnel syndrome, unspecified upper limb; M54.5 Low back pain; F17.290 Nicotine dependence, other tobacco product, uncomplicated; E89.0 Postprocedural hypothyroidism; M19.90 Unspecified osteoarthritis, unspecified site; M81.0 Age-related osteoporosis without current pathological fracture; Z80.1 Family history of malignant neoplasm of trachea, bronchus and lung; Z82.49 Family history of ischemic heart disease and other diseases of the circulatory system; Z83.3 Family history of diabetes mellitus; Z83.71 Family history of colonic polyps; Z85.819 Personal history of malignant neoplasm of unspecified site of lip, oral cavity, and pharynx; Z85.850 Personal history of malignant neoplasm of thyroid; Z88.8 Allergy status to other drugs, medicaments and biological substances; Z91.041 Radiographic dye allergy status; Z91.011 Allergy to milk products; Z88.5 Allergy status to narcotic agent; Z91.013 Allergy to seafood
CPT/HCPCS: 36415; 71010; 76700; 80048; 80053; 80076; 81001; 83690; 83880; 84443; 84484; 85027; 85379; 85651; 93005; 93306; 93970; 94250; 94640; 94760; G0378; G0379; J2920; J7620; 99285-25

== ENCOUNTER → 2016-11-01 | Outpatient (CLI) | payer MEDICARE ==
[2016-10-20 10:45] VITALS: BP 150/62
[~2016-11-01] VITALS: Ht 154.9 cm; Wt 81.6 kg
[~2016-11-01] MED LIST changes: +ASPI-630 PO; +FLUT1DIS3 IH; +METO25TA4 PO; +OLME40TA16 PO; +SINCALIDE 1.6 MCG in IV NORMAL SALINE 50ML 30 ML IV ONE
--- NOTE | 2016-11-01 10:09 | RAD ---
Radionuclide hepatobiliary scan with gallbladder ejection fraction, 11/01/2016: History: Abdominal pain and bloating Following IV injection of 5.5 mCi of technetium 99m Choletec there was prompt uptake of the radionuclide from the blood stream by the liver. Activity is present in the bile ducts and gallbladder at 15 minutes. Initial imaging out to one hour showed increasing gallbladder activity without extension into small bowel. Following IV injection of 1.6 mcg of cholecystokinin there was good gallbladder emptying with extension of activity into the small bowel. The gallbladder ejection fraction was calculated at 85%. IMPRESSION: 1. No evidence of cystic duct or common bile duct obstruction. 2. The gallbladder ejection fraction is 85%.
== END | disposition home or self-care (01) ==
LOC: NM 07:39
PROVIDERS: ATTEND Family Medicine
DX: R10.9 Unspecified abdominal pain (principal); R14.0 Abdominal distension (gaseous)
CPT/HCPCS: 78226; 96374; 96375; A9537; J2805; A9541

== ENCOUNTER → 2018-02-21 | Day surgery (SDC) | payer MEDICARE ==
[~2018-02-21] MED LIST changes: +IV RINGERS,LACTATED 1000ML 1,000 ML IV SCH; +METO-239 PO; -METO25TA9 PO; +MIDAZOLAM HCL/PF 5 MG/5 ML VIAL. IV ONE; +MIDAZOLAM HCL/PF 5 MG/5 ML VIAL. ONE; +NAPR-514 PO; -NAPR500T3 PO; -SINCALIDE 1.6 MCG in IV NORMAL SALINE 50ML 30 ML IV ONE; +diphenhydrAMINE 50 MG/ML VIAL IV ONE; +diphenhydrAMINE 50 MG/ML VIAL ONE; +fentaNYL PF VIAL 100 MCG/2 ML VIAL IV ONE; +fentaNYL PF VIAL 100 MCG/2 ML VIAL ONE
[2018-02-21 17:49] VITALS: BP 161/66
== END | disposition home or self-care (01) ==
LOC: ENDOS 15:59
PROVIDERS: ATTEND Internal Medicine Gastroenterology
DX: K22.2 Esophageal obstruction (principal); F32.9 Major depressive disorder, single episode, unspecified; F41.9 Anxiety disorder, unspecified; Z86.010 Personal history of colon polyps; K21.9 Gastro-esophageal reflux disease without esophagitis; Z85.850 Personal history of malignant neoplasm of thyroid; I10 Essential (primary) hypertension; J43.9 Emphysema, unspecified; Z83.71 Family history of colonic polyps; E78.00 Pure hypercholesterolemia, unspecified; Z82.49 Family history of ischemic heart disease and other diseases of the circulatory system; Z83.79 Family history of other diseases of the digestive system; Z87.891 Personal history of nicotine dependence; Z79.899 Other long term (current) drug therapy; Z72.89 Other problems related to lifestyle; Z98.51 Tubal ligation status; Z98.890 Other specified postprocedural states; Z91.013 Allergy to seafood; Z88.5 Allergy status to narcotic agent; Z88.8 Allergy status to other drugs, medicaments and biological substances
CPT/HCPCS: 43235; 43450; J1200; J2250; J3010; 43239

== ENCOUNTER 2018-09-19 15:23 | Inpatient (IN) | payer MEDICARE ==
[~2018-09-19] VITALS: Ht 160 cm; Wt 88.5 kg
[~2018-09-19 15:23] MED LIST changes: +CLON0.2T PO; +FENT1PAT15 TP; -HYDR-2758 PO; +HYDR-2761 PO; +HYDR-2769 PO; -IV RINGERS,LACTATED 1000ML 1,000 ML IV SCH; +LUTE40CA PO; +METO10TA81 PO; -MIDAZOLAM HCL/PF 5 MG/5 ML VIAL. IV ONE; -MIDAZOLAM HCL/PF 5 MG/5 ML VIAL. ONE; -OXYC-327 PO; +OXYC1TAB19 PO; +PANT20TA2 PO; -diphenhydrAMINE 50 MG/ML VIAL IV ONE; -diphenhydrAMINE 50 MG/ML VIAL ONE; -fentaNYL PF VIAL 100 MCG/2 ML VIAL IV ONE; -fentaNYL PF VIAL 100 MCG/2 ML VIAL ONE
[2018-09-19] MEDS ORDERED: MORPHINE SULFATE 4 MG/ML VIAL. IV ONE (16:00)
[2018-09-19] MEDS ORDERED: ONDANSETRON PF 4 MG/2 ML VIAL. IV ONE (16:00)
[2018-09-19 16:10] LABS: BASO % 0 % (0-3); EOS # 0.1 x10^3/uL (0.0-0.7); EOS % 1 % (0-3); HEMATOCRIT 35.3 % (36.0-47.0); HEMOGLOBIN 11.6 g/dL (12.0-15.5); LYMPH # 1.2 x10^3/uL (1.0-4.8); LYMPH % 15 % (24-48); MEAN CORPUSCULAR HEMOGLOBIN 29 pg (25-35); MEAN CORPUSCULAR HGB CONC 33 g/dL (31-37); MEAN CORPUSCULAR VOLUME 88 fL (79-100); MONO # 0.6 x10^3/uL (0.0-1.1); MONO % 7 % (0-9); NEUT % 76 % (31-73); PLATELET COUNT 215 x10^3/uL (140-400); RED CELL DISTRIBUTION WIDTH 15.8 % (11.5-14.5); WHITE BLOOD COUNT 7.8 x10^3/uL (4.0-11.0)
[2018-09-19 16:11] LABS: BILIRUBIN,URINE NEGATIVE (NEG); CLARITY,URINE CLEAR; COLOR,URINE YELLOW; NITRITE,URINE NEGATIVE (NEG); PH,URINE 6.5; PROTEIN,URINE NEGATIVE (NEG-TRACE)
[2018-09-19 16:18] LABS: BACTERIA,URINE 0 /HPF (0-FEW); RBC,URINE 0 /HPF (0-2); WBC,URINE 0 /HPF (0-4)
[2018-09-19 16:20] LABS: CALCIUM 8.6 mg/dL (8.5-10.1); GFR 54.2; POTASSIUM 3.8 mmol/L (3.5-5.1)
[2018-09-19 16:26] LABS: ALBUMIN 3.3 g/dL (3.4-5.0); ALBUMIN/GLOBULIN RATIO 0.9 (1.0-1.7); TOTAL BILIRUBIN 0.9 mg/dL (0.2-1.0); TOTAL PROTEIN 7.1 g/dL (6.4-8.2)
--- NOTE | 2018-09-19 16:33 | EKG ---
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
[2018-09-19] MEDS ORDERED: fentaNYL PF VIAL 100 MCG/2 ML VIAL IV ONE ×2 (16:45→18:00)
[2018-09-19] MEDS ORDERED: hydrALAZINE 20 MG/ML VIAL. IVP ONE (16:45)
--- NOTE | 2018-09-19 16:52 | PHYS DOC ---
Past Medical History Past Medical History: COPD, Depression, GERD, High Cholesterol, Hypertension, Hypothyroid, Other Additional Past Medical Histor: bradycardia, lung fibroids (LELO ELENA) Past Surgical History: Tonsillectomy Additional Past Surgical Histo: X 2 BACK SURGERIES,RIGHT SHOULDER SURGERY,BENIGN BREAST BIOPSY,RIGHT LUNG (LELO ELENA) Alcohol Use: Rarely Drug Use: None (LELO ELENA) Adult General Chief Complaint Chief Complaint: LOWER BACK PAIN OR INJURY HPI HPI Patient is a 72 year old female who reports she is having horrible mid and low back pain. She states she went to try to lay back in a recliner chair today to try to find some comfort and she got stuck. She couldn't get up from the chair due to pain. She states she was in the chair for several hours and finally had to call an ambulance. Pt arrives visibly uncomfortable and is requiring full assist over to bed. She grimaces with any movement and states the pain is in her mid and low back and the back of her thighs. She denies loss of bladder or bowel function but states she is very thirsty and needs to urinate badly due to being stuck for so long. Pt tells me that her doctor told her she has a "bad back". I asked about recent imaging and she thought she had an MRI recently. I called and spoke with her PCP, Dr. Zhu, who doesn't think she had MRI recently but plain film, so requested MRI be ordered. Admission orders were placed for Intractable Back pain, Hypertension. While in ER pt continued to call our for pain and started acting somewhat erratic. She was trying to climb over the bed rail and repeatedly calling out saying how much pain she is in. Her blood pressure did come down some with medication but it was then noticed that she was sweaty and flushed and repeat temperature was taken and pt now has fever of 100.7. CXR was added and due to extent of pain, it was discussed with Dr. Viera and then Dr. Hopper and a CTA of chest/abd/pelvis annd CT head w/o contrast was ordered. Dr. Hopper was in to room to talk with pt and she is now stating her abd is painful, which is a new complaint since arrival. Pt has reported iodine allergy but when we asked her she said that allergy was from when she was 3 or 4 years old and she doesn't remember what happened. The risk outweighs the benefit, so pt was premedicated with 25mg Benadryl and 125mg Solumedrol and will be monitored closely after IV contrast. Pt's daughter arrived and did inform nurse that pt is a heavy alcohol drinker. Will add on ETOH, possibly symptoms could be related to withdrawal?? Unclear. Prior to pt transferring from ER to floor, I called Dr. Zhu to update him on changes in pt's condition while in ER and tests that were performed. Her CT did report some possible suggestion of pneumonia. She was treated with Zosyn while in ER and will continue this at this time. (LELO ELENA) Review of Systems Review of Systems Constitutional: Denies fever or chills Respiratory: Reports chronic wheezing and SOB Cardiovascular: Denies chest pain. GI: Denies abdominal pain, nausea, vomiting, bloody stools or diarrhea : Denies dysuria or hematuria Musculoskeletal: Reports back pain and pain in back of thighs. Integument: Denies rash or skin lesions Neurologic: Reports headache. All other systems were reviewed and found to be within normal limits, except as documented in this note. (LELO ELENA) Current Medications Current Medications Current Medications Medications (Trade) Dose Ordered Sig/Jon Start Time Stop Time Status Last Admin Dose Admin Morphine Sulfate (Morphine Sulfate) 4 mg 1X ONCE 09/19/18 16:00 09/19/18 16:01 DC 09/19/18 16:09 4 MG Ondansetron HCl (Zofran) 4 mg 1X ONCE 09/19/18 16:00 09/19/18 16:01 DC 09/19/18 16:09 4 MG (JODI HOPPER MD) Allergies Allergies Allergies Coded Allergies Type Severity Reaction Last Updated Verified shellfish derived Allergy Severe Rash 02/21/18 Yes Pentazocine Lactate Allergy Intermediate Rash 02/21/18 Yes ropinirole Allergy Intermediate 05/11/18 Yes tramadol Allergy Intermediate Nausea and Vomiting 05/11/18 Yes varenicline Allergy Intermediate 05/11/18 Yes (JODI HOPPER MD) Physical Exam Physical Exam Constitutional: Well developed, well nourished. Uncomfortable. HENT: Normocephalic, atraumatic, bilateral external ears normal, oropharynx moist Eyes: PERRLA, EOMI, conjunctiva normal, no discharge. Neck: Normal range of motion, no tenderness, supple, no stridor. No meningismus. Cardiovascular:Heart rate regular rhythm, no murmur Lungs & Thorax: Diffuse wheezing throughout. Abdomen: Bowel sounds normal, soft, no tenderness, no masses, no pulsatile masses initially. On second exam, pt reports diffuse abd tenderness but no grimace on palpation. Skin: Warm, dry, no erythema, no rash. On second exam, pt flushed and now has temperature of 100.7. Back: Tender in mid to low back along midline and perispinous region. Spasm noted. Extremities: No cyanosis, no clubbing, ROM intact, no edema. Pain in back of thighs, no erythema or contusions. Neurologic: Alert and oriented X 3, normal motor function, normal sensory function, no focal deficits noted. On second exam, pt disoriented, possibly medication induced. Psychologic: Affect normal, judgement normal, mood normal. (LELO ELENA) Current Patient Data Vital Signs Vital Signs Date Time Temp Pulse Resp B/P (MAP) Pulse Ox O2 Delivery O2 Flow Rate FiO2 09/19/18 16:30 90 21 220/90 (133) 95 Room Air 09/19/18 15:30 99.2 99.2 (JODI HOPPER MD) Lab Values Laboratory Tests Test 09/19/18 15:50 09/19/18 15:55 White Blood Count 7.8 x10^3/uL (4.0-11.0) Red Blood Count 4.00 x10^6/uL (3.50-5.40) Hemoglobin 11.6 g/dL (12.0-15.5) L Hematocrit 35.3 % (36.0-47.0) L Mean Corpuscular Volume 88 fL (79-100) Mean Corpuscular Hemoglobin 29 pg (25-35) Mean Corpuscular Hemoglobin Concent 33 g/dL (31-37) Red Cell Distribution Width 15.8 % (11.5-14.5) H Platelet Count 215 x10^3/uL (140-400) Neutrophils (%) (Auto) 76 % (31-73) H Lymphocytes (%) (Auto) 15 % (24-48) L Monocytes (%) (Auto) 7 % (0-9) Eosinophils (%) (Auto) 1 % (0-3) Basophils (%) (Auto) 0 % (0-3) Neutrophils # (Auto) 6.0 x10^3uL (1.8-7.7) Lymphocytes # (Auto) 1.2 x10^3/uL (1.0-4.8) Monocytes # (Auto) 0.6 x10^3/uL (0.0-1.1) Eosinophils # (Auto) 0.1 x10^3/uL (0.0-0.7) Basophils # (Auto) 0.0 x10^3/uL (0.0-0.2) Prothrombin Time 13.6 SEC (11.7-14.0) Prothrombin Time INR 1.1 (0.8-1.1) PTT 34 SEC (24-38) Sodium Level 135 mmol/L (136-145) L Potassium Level 3.8 mmol/L (3.5-5.1) Chloride Level 95 mmol/L (98-107) L Carbon Dioxide Level 32 mmol/L (21-32) Anion Gap 8 (6-14) Blood Urea Nitrogen 9 mg/dL (7-20) Creatinine 1.0 mg/dL (0.6-1.0) Estimated GFR (Cockcroft-Gault) 54.2 BUN/Creatinine Ratio 9 (6-20) Glucose Level 116 mg/dL (70-99) H Lactic Acid Level 1.0 mmol/L (0.4-2.0) Calcium Level 8.6 mg/dL (8.5-10.1) Total Bilirubin 0.9 mg/dL (0.2-1.0) Aspartate Amino Transferase (AST) 21 U/L (15-37) Alanine Aminotransferase (ALT) 23 U/L (14-59) Alkaline Phosphatase 57 U/L (46-116) Creatine Kinase 96 U/L (26-192) Creatine Kinase MB (Mass) 1.8 ng/mL (0.0-3.6) Creatine Kinase MB Relative Index 1.9 % (0-4) Troponin I Quantitative < 0.017 ng/mL (0.000-0.055) Total Protein 7.1 g/dL (6.4-8.2) Albumin 3.3 g/dL (3.4-5.0) L Albumin/Globulin Ratio 0.9 (1.0-1.7) L Lipase 68 U/L (73-393) L Ethyl Alcohol Level < 10 mg/dL (0-10) Urine Collection Type Unknown Urine Color Yellow Urine Clarity Clear Urine pH 6.5 Urine Specific [place] 1.015 Urine Protein Negative mg/dL (NEG-TRACE) Urine Glucose (UA) Negative mg/dL (NEG) Urine Ketones (Stick) Negative mg/dL (NEG) Urine Blood Negative (NEG) Urine Nitrite Negative (NEG) Urine Bilirubin Negative (NEG) Urine Urobilinogen Dipstick 1.0 mg/dL (0.2 mg/dL) Urine Leukocyte Esterase Negative (NEG) Urine RBC 0 /HPF (0-2) Urine WBC 0 /HPF (0-4) Urine Bacteria 0 /HPF (0-FEW) Laboratory Tests 09/19/18 15:50 Laboratory Tests 09/19/18 15:50 (JODI HOPPER MD) EKG EKG EKG reviewed by Dr. Viera. No acute STEMI noted. (LELO ELENA) Radiology/Procedures Radiology/Procedures CT head performed CTA chest/abd/pelvis performed CXR portable performed MRI ordered and pending at time of admission (LELO ELENA) Course & Med Decision Making Course & Med Decision Making Pertinent Labs and Imaging studies reviewed. (See chart for details) Pt with interesting presentation of low back pain limiting her ability to get up and move around her home. She then escalated in symptoms here in ER with fever, abd pain, mild confusion. CT shows chronic findings in lungs but couldn't rule out pneumonia. Zosyn prescribed for broad spectrum coverage. Dr. Zhu has been informed of pt's condition at time of admission. Pt's family in room updated on findings. (LELO ELENA) Course & Med Decision Making Staff Physician Addendum: I was working in the ER during the course of this patient's visit. I was available for consultation as needed, I was asked to see this patient due to some increased pain temporal 100.7. Patient did have some mild abdominal tenderness was complained of back pain as well as some upper chest discomfort CT scan was negative for dissection did show some evidence of probable pneumonitis or pneumonia likely causing fever patient has been coughing according to family also is a heavy drinker. Neck is supple she did come in initially she was alert and oriented became slightly confused after receiving IV narcotics as noted above. Patient received broad-spectrum antibiotics. (JODI HOPPER MD) Dragon Disclaimer Dragon Disclaimer This electronic medical record was generated, in whole or in part, using a voice recognition dictation system. (LELO ELENA) Departure Departure Impression: Primary Impression: Intractable back pain Disposition: ADMITTED INPATIENT Admitting Physician: Dalia Zhu (LELO ELENA) Condition: IMPROVED Referrals: DALIA ZHU MD (PCP) LELO ELENA September 19, 2018 16:52 JODI HOPPER MD September 20, 2018 00:07
[2018-09-19] MEDS ORDERED: ONDANSETRON PF 4 MG/2 ML VIAL. IV PRN (17:00)
[2018-09-19] MEDS ORDERED: ALBUTEROL SULFATE 2.5 MG/3 ML NEBU. NEB ONE (17:15)
[2018-09-19] MEDS: MORPHINE SULFATE 4 MG/ML VIAL. IV PRN (18:04)
[2018-09-19] MEDS ORDERED: diphenhydrAMINE 50 MG/ML VIAL IVP ONE (18:15)
[2018-09-19] MEDS ORDERED: methylPREDNISolone SOD SUCC PF 125 MG/2 ML VIAL. IV ONE (18:15)
[2018-09-19] MEDS ORDERED: PIPERACILLIN/TAZOBACTAM 4.5 GM in IV NORMAL SALINE 100ML 100 ML IV ONE (18:15)
[2018-09-19] MEDS ORDERED: ACETAMINOPHEN 500 MG TABLET PO ONE (18:15)
[2018-09-19] MEDS ORDERED: CONTRAST GIVEN. MC PRN (18:30)
[2018-09-19] MEDS ORDERED: IOHEXOL 350 MG/ML 100 ML VIAL. IV ONE (18:30)
[2018-09-19 18:31] LABS: PROTHROMBIN TIME PATIENT 13.6 SEC (11.7-14.0)
--- NOTE | 2018-09-19 18:38 | RAD ---
CT head without contrast dated 09/19/2018. No comparison available. CLINICAL INDICATION: Hypertension. TECHNIQUE: Contiguous axial imaging the head was performed from skull base to vertex. No contrast administered. One or more of the following individualized dose reduction techniques were utilized for this examination: 1. Automated exposure control 2. Adjustment of the mA and/or kV according to patient size 3. Use of iterative reconstruction technique FINDINGS: Ventricles and sulci are mildly prominent for age. No midline shift or mass effect. Mild patchy low density in the deep/subcortical periventricular white matter. No hemorrhage or extra-axial collection. Posterior fossa and brainstem unremarkable. Mild mucosal thickening of the bilateral ethmoid air cells. The visualized paranasal sinuses and mastoid air cells are otherwise clear. No apparent calvarial abnormality. IMPRESSION: 1. No evidence of acute intracranial hemorrhage or mass. 2. Mild chronic small vessel ischemic changes and atrophy. Electronically signed by: Loco Cerrato MD (09/19/2018 6:35 PM) [facility]
--- NOTE | 2018-09-19 18:53 | RAD ---
Single view chest dated 09/19/2018. Comparison made to 05/09/2018. CLINICAL INDICATION: Fever. History of COPD. FINDINGS: single upright portable exam performed. Heart size is mildly enlarged, stable. Prominent perihilar and right upper lobe linear markings, similar to prior exam. No consolidation or pleural effusion. No pneumothorax. Evidence of prior right upper lobe wedge resection, unchanged. IMPRESSION: 1. No acute radiographic abnormality. Stable findings compared to 05/09/2018. Electronically signed by: Loco Cerrato MD (09/19/2018 6:50 PM) [facility]
--- NOTE | 2018-09-19 19:10 | RAD ---
CTA chest, abdomen and pelvis 09/19/2017 Clinical indication: Severe mid and low back pain and hypertension. Value for abdominal aortic aneurysm. COMPARISON: None. TECHNIQUE: Multiple CTA images of the chest, abdomen and pelvis were obtained following the intravenous administration of 75 mL Omnipaque 350. MIPS were obtained of the chest, abdomen and pelvis. *One or more of the following individualized dose reduction techniques were utilized for this examination: 1. Automated exposure control. 2. Adjustment of the mA and/or kV according to patient size. 3. Use of iterative reconstruction technique. FINDINGS: CTA CHEST: Evaluation of the thoracic aorta is limited due to patient motion and lack of noncontrast imaging. The thoracic aorta is normal in caliber with mild scattered mixed atheromatous plaque. Heart size is normal without significant pericardial effusion. Coronary artery calcifications are noted. No axillary, mediastinal or hilar lymphadenopathy. The trachea is patent. There is a tiny upper right tracheal diverticulum. There is mild lower lobe peribronchial thickening. There are scattered areas of pleural/parenchyma scarring in both lungs. There is patchy groundglass attenuation scattered throughout both lungs. No pleural effusion or pneumothorax. There are postsurgical changes of a right upper and right lower lobe wedge resections. There is a 0.3 cm noncalcified groundglass nodule in the lateral left upper lobe series 3 cm image 34. There is a subpleural noncalcified pulmonary nodule more inferiorly in the lateral left upper lobe measuring 0.4 cm series 3/image 56. There is a mildly comminuted acute or subacute appearing medial right clavicular fracture without sternoclavicular dislocation. CTA abdomen and pelvis: Vascular: Abdominal aorta is normal in caliber with moderate probably calcified aortoiliac atheromatous plaque. Mild calcified plaque at the origin of the celiac artery without high-grade narrowing. Dense calcified plaque at the origin of the superior mesenteric and scattered throughout the proximal mid superior mesenteric artery resulting in 50-70 percent ostial stenosis. Mild calcified plaque at the origin of the right renal artery without high-grade narrowing. Calcified plaque at the origin of the single main left renal artery with less than 50 percent narrowing. There is an a prominent accessory artery from the anterior aspect of the abdominal aorta inferior to the main right renal artery origin without high-grade narrowing. Inferior mesenteric arteries patent. Normal caliber bilateral common iliac arteries with moderate scattered calcified plaque without high-grade narrowing. Nonvascular: Examination is somewhat limited due to phase of contrast timing optimized for the arteries. Liver, gallbladder, spleen, adrenal glands, pancreas and kidneys are unremarkable apart from a hypodensity in the posterior superior pole right kidney measuring 0.7 cm which is too small to characterize. No abdominal or pelvic lymphadenopathy. Small and large bowel loops are normal in caliber without obstruction. No abdominal free fluid or pneumoperitoneum. A few distal colonic diverticula without acute diverticulitis. There is a tiny fat-containing umbilical hernia. Mildly distended unopacified urinary bladder unremarkable. There is a tiny probable calcified fibroid at the fundus of the uterus. The adnexa are grossly unremarkable. There is a stable mild superior endplate L1 compression deformity with mild bony retropulsion without significant spinal canal narrowing. Stable severe disc degeneration at L3-L4. Posterior spinal fixation and decompression L4-S1 with bilateral vertical rods and transpedicular screws. There is stable grade 2/3 anterolisthesis L5 on S1. There is a bony gap of the left ilium which may be due to prior bone harvest site. IMPRESSION: CTA CHEST: 1. Normal caliber thoracic aorta. 2. Patchy groundglass opacities throughout the lungs. Differential considerations are broad including pulmonary edema (however the configuration has not changed over multiple prior chest radiographs), interstitial lung disease such as nonspecific interstitial pneumonitis (NSIP), hypersensitivity pneumonitis, or less likely eosinophilic pneumonia. 3. Subcentimeter noncalcified pulmonary nodules, indeterminate. Follow-up CT chest in 6 months is recommended. 4. Mild nonspecific lower lobe bronchitis. 5. Acute or subacute nondisplaced medial right clavicular fracture. Correlation with point tenderness is recommended. 6. Coronary artery calcifications. CTA abdomen and pelvis: 1. Abdominal aorta normal in caliber. 2. Aortic atheromatous plaque including the major branch vessels with the greatest stenosis at the origin of the superior mesenteric artery, estimated at 50-70 percent. 3. Stable mild L1 compression deformity. 4. Too small to characterize right renal hypodensity. Electronically signed by: Hilario Mckeon MD (09/19/2018 7:07 PM) [facility]
[2018-09-19 19:45] VITALS: BP 126/63
--- NOTE | 2018-09-19 20:00 | NUR ---
The patient, MERY PEÑA, 72 y/o, F admitted by DALIA OJEDA MD, was given written information regarding hospital policies, unit procedures and contact persons. patient was transported to room 536 via ED bed assisted by ED staff, family present at bedside. Valuables were checked and noted. Patient is currently drowsy and is falling asleep during admission questions. Family states that the patient had been confused prior to arrival in ED and to the floor, when asked patient was able to state name, , year, and place correctly. Patient currently states no needs at this time, This RN will continue to monitor the patient at this time.
[2018-09-19] MEDS ORDERED: ONDA4TAB12 PO (20:45)
[2018-09-19] MEDS ORDERED: ATOR20TA58 PO (20:45)
[2018-09-19] MEDS ORDERED: CYCL5TAB PO (20:45)
[2018-09-19] MEDS ORDERED: GABA300C18 PO (20:45)
[2018-09-19] MEDS ORDERED: BENZ-8 PO (20:45)
[2018-09-19 23:00] VITALS: BP 126/56
[2018-09-20] MEDS: PIPERACILLIN/TAZOBACTAM 3.375 GM in IV NORMAL SALINE 50ML 50 ML IV SCH ×4 (00:19→17:59)
[2018-09-20] MEDS: MORPHINE SULFATE 4 MG/ML VIAL. IV PRN ×5 (00:41→10:00)
[2018-09-20 03:00] VITALS: BP 119/64
[2018-09-20] MEDS ORDERED: PRED1TAB3 PO (05:13)
[2018-09-20] MEDS ORDERED: FLUO20TA11 PO (05:13)
[2018-09-20] MEDS ORDERED: OLME40TA12 PO (05:13)
[2018-09-20] MEDS ORDERED: POTA10TA12 PO (05:13)
[2018-09-20] MEDS ORDERED: FENT1PAT21 TD (05:13)
[2018-09-20] MEDS ORDERED: PANT20TA2 PO (05:13)
[2018-09-20] MEDS ORDERED: LEVO137T3 PO (05:13)
[2018-09-20] MEDS ORDERED: METO10TA81 PO (05:13)
[2018-09-20 07:00] VITALS: BP 113/70
[2018-09-20 11:00] VITALS: BP 124/98
[2018-09-20] MEDS ORDERED: METOCLOPRAMIDE 10 MG TABLET. PO PRN (13:00)
[2018-09-20] MEDS ORDERED: ONDANSETRON ODT 4 MG TAB.RAPDIS. PO PRN (13:00)
[2018-09-20] MEDS: CYCLOBENZAPRINE 10 MG TABLET. PO PRN ×2 (13:16→19:32)
[2018-09-20] MEDS: HYDROcodone/APAP 10/325 1 TAB TABLET PO PRN ×2 (13:17→19:32)
[2018-09-20] MEDS: cloNIDine HCL 0.2 MG TABLET PO SCH ×2 (13:20→21:32)
[2018-09-20] MEDS: ASPIRIN CHEWABLE 81 MG TABLET. PO SCH (13:20)
[2018-09-20] MEDS: LOSARTAN POTASSIUM 50 MG TABLET. PO SCH (13:20)
[2018-09-20] MEDS: MULTIVITAMIN I-VITE TABLET. PO SCH (13:37)
[2018-09-20] MEDS: GABAPENTIN 300 MG CAPSULE. PO SCH ×2 (13:38→21:31)
[2018-09-20] MEDS: predniSONE 10 MG TABLET PO SCH (13:38)
[2018-09-20] MEDS: POTASSIUM CHLORIDE 10 MEQ TABLET.ER. PO SCH (13:38)
[2018-09-20] MEDS: ATORVASTATIN CALCIUM 20 MG TABLET PO SCH (13:38)
[2018-09-20] MEDS: FLUoxetine HCL 10 MG CAPSULE PO SCH (13:42)
[2018-09-20] MEDS: PANTOPRAZOLE 40 MG TABLET.DR. PO SCH (13:42)
[2018-09-20] MEDS: LEVOTHYROXINE 137 MCG TABLET PO SCH (13:43)
[2018-09-20] MEDS ORDERED: BENZONATATE 100 MG CAPSULE. PO PRN (14:00)
--- NOTE | 2018-09-20 14:51 | PDOC2 ---
GI CONSULT Reason For Consult: Abd pain HPI: HPI: 72 y/o female who has been seen by a few doctors in our office. Admitted through ER yesterday w/ back pain. Has chronic back issues, now pain radiates down left leg (?also right). She tells me she is to have an MRI with anesthesia this admission. GI consult requested for abd pain - she says "well it's not even a big deal, it's very mild." Located in RLQ. Comes and goes for a few months. "Burning." Not related to eating or stooling. Per past encounter, has chronic GI issues including bloating, nausea, occasional vomiting, GERD, and irregular bowel habits. Bloating is still an issue - not eating much the last few days due to this. EGD 01/2018: Schatzki's ring (dilated 54Fr), normal stomach, normal duodenum. HIDA 2017: normal GB EF 88%. Abd US 2017: hepatic steatosis. Colonoscopy 10/2015: 4 adenomatous polyp, moderate extrinsic stenosis, internal hemorrhoids. Takes Protonix Q a.m. with the rest of her meds, usually doesn't eat breakfast. Denies reflux/heartburn, dysphagia, n/v, bleeding, and weight loss. Says elham dobbsy no issues w/ diarrhea or constipation, but was has been constipated recently (?having to take more pain meds for back pain). Used Miralax and another little yellow pill x 5 days, now stooling without issue. Office notes mentions previous trial of Xifaxan for possible SIBO and FODMAPs diet - she doesn't recall either but apparently both ineffective. After I saw her this afternoon, I noted she has Reglan TID PRN ordered. Uses fentanyl patch, hydrocodone, and frequently takes 4 ibuprofen at a time. Also daily ASA 81mg and prednisone 10mg QD ("for my lungs"). No pancreas or PUD history. PMH: PMH: HTN, HLD, PSVT, SULEMA, COPD/eosinophilic fibrotic lung disease, venous insufficiency, GERD, colon polyps, thyroid cancer, anxiety/depression, OA, LBP cataract removal, tonsillectomy, back and neck surgeries, CTR, rotator cuff repair, lung biopsy, tubal ligation FH: Family History: Cancer (ovarian, lung), DM, Hypertension, Other (colon polyps, diverticulitis, liver disease) Social History: Smoke: <1 pack per day ALCOHOL: other (1-2 glasses of wine 3-4 days a week) Drugs: None ROS: GEN: Denies fevers, chills, sweats HEENT: Denies blurred vision, sore throat CV: Denies chest pain RESP: Denies shortness of air, cough GI: Per HPI : Denies hematuria, dysuria ENDO: Denies weight changes NEURO: Denies confusion, dizziness MSK: +chronic pain SKIN: Denies jaundice, pruritus Vitals: Vitals: Vital Signs Date Time Temp Pulse Resp B/P (MAP) Pulse Ox O2 Delivery O2 Flow Rate FiO2 09/20/18 14:21 Nasal Cannula 3.0 09/20/18 11:00 98.5 68 20 124/98 (107) 98 98.5 Labs: Labs: Laboratory Tests Test 09/19/18 15:50 09/19/18 15:55 White Blood Count 7.8 x10^3/uL (4.0-11.0) Red Blood Count 4.00 x10^6/uL (3.50-5.40) Hemoglobin 11.6 g/dL (12.0-15.5) Hematocrit 35.3 % (36.0-47.0) Mean Corpuscular Volume 88 fL (79-100) Mean Corpuscular Hemoglobin 29 pg (25-35) Mean Corpuscular Hemoglobin Concent 33 g/dL (31-37) Red Cell Distribution Width 15.8 % (11.5-14.5) Platelet Count 215 x10^3/uL (140-400) Neutrophils (%) (Auto) 76 % (31-73) Lymphocytes (%) (Auto) 15 % (24-48) Monocytes (%) (Auto) 7 % (0-9) Eosinophils (%) (Auto) 1 % (0-3) Basophils (%) (Auto) 0 % (0-3) Neutrophils # (Auto) 6.0 x10^3uL (1.8-7.7) Lymphocytes # (Auto) 1.2 x10^3/uL (1.0-4.8) Monocytes # (Auto) 0.6 x10^3/uL (0.0-1.1) Eosinophils # (Auto) 0.1 x10^3/uL (0.0-0.7) Basophils # (Auto) 0.0 x10^3/uL (0.0-0.2) Prothrombin Time 13.6 SEC (11.7-14.0) Prothromb Time International Ratio 1.1 (0.8-1.1) Activated Partial Thromboplast Time 34 SEC (24-38) Sodium Level 135 mmol/L (136-145) Potassium Level 3.8 mmol/L (3.5-5.1) Chloride Level 95 mmol/L (98-107) Carbon Dioxide Level 32 mmol/L (21-32) Anion Gap 8 (6-14) Blood Urea Nitrogen 9 mg/dL (7-20) Creatinine 1.0 mg/dL (0.6-1.0) Estimated GFR (Cockcroft-Gault) 54.2 BUN/Creatinine Ratio 9 (6-20) Glucose Level 116 mg/dL (70-99) Lactic Acid Level 1.0 mmol/L (0.4-2.0) Calcium Level 8.6 mg/dL (8.5-10.1) Total Bilirubin 0.9 mg/dL (0.2-1.0) Aspartate Amino Transf (AST/SGOT) 21 U/L (15-37) Alanine Aminotransferase (ALT/SGPT) 23 U/L (14-59) Alkaline Phosphatase 57 U/L (46-116) Creatine Kinase 96 U/L (26-192) Creatine Kinase MB (Mass) 1.8 ng/mL (0.0-3.6) Creatine Kinase MB Relative Index 1.9 % (0-4) Troponin I Quantitative < 0.017 ng/mL (0.000-0.055) Total Protein 7.1 g/dL (6.4-8.2) Albumin 3.3 g/dL (3.4-5.0) Albumin/Globulin Ratio 0.9 (1.0-1.7) Lipase 68 U/L (73-393) Ethyl Alcohol Level < 10 mg/dL (0-10) Urine Collection Type Unknown Urine Color Yellow Urine Clarity Clear Urine pH 6.5 Urine Specific [place] 1.015 Urine Protein Negative mg/dL (NEG-TRACE) Urine Glucose (UA) Negative mg/dL (NEG) Urine Ketones (Stick) Negative mg/dL (NEG) Urine Blood Negative (NEG) Urine Nitrite Negative (NEG) Urine Bilirubin Negative (NEG) Urine Urobilinogen Dipstick 1.0 mg/dL (0.2 mg/dL) Urine Leukocyte Esterase Negative (NEG) Urine RBC 0 /HPF (0-2) Urine WBC 0 /HPF (0-4) Urine Bacteria 0 /HPF (0-FEW) Allergies: Coded Allergies: shellfish derived (Verified Allergy, Severe, Rash, 02/21/18) "horrible vomiting" Pentazocine Lactate (Verified Allergy, Intermediate, Rash, 02/21/18) swelling ropinirole (Verified Allergy, Intermediate, 05/11/18) tramadol (Verified Allergy, Intermediate, Nausea and Vomiting, 05/11/18) varenicline (Verified Allergy, Intermediate, 05/11/18) iodine (Verified Allergy, Unknown, 09/19/18) Medications: Current Medications Medications (Trade) Dose Ordered Sig/Jon Route PRN Reason Start Time Stop Time Status Last Admin Dose Admin Ondansetron HCl (Zofran) 4 mg 1X ONCE IV 09/19/18 16:00 09/19/18 16:01 DC 09/19/18 16:09 Morphine Sulfate (Morphine Sulfate) 4 mg 1X ONCE IV 09/19/18 16:00 09/19/18 16:01 DC 09/19/18 16:09 Hydralazine HCl (Apresoline Inj) 10 mg 1X ONCE IVP 09/19/18 16:45 09/19/18 16:48 DC 09/19/18 17:05 Fentanyl Citrate (Fentanyl 2ml Vial) 25 mcg 1X ONCE IV 09/19/18 16:45 09/19/18 16:48 DC 09/19/18 17:04 Morphine Sulfate (Morphine Sulfate) 4 mg PRN Q2HR PRN IV PAIN 09/19/18 17:00 09/20/18 16:59 09/20/18 10:00 Albuterol Sulfate (Ventolin Neb Soln) 2.5 mg 1X ONCE NEB 09/19/18 17:15 09/19/18 17:16 DC 09/19/18 17:41 Lorazepam (Ativan Inj) 1 mg 1X ONCE IV 09/19/18 18:00 09/19/18 18:01 DC 09/19/18 17:38 Fentanyl Citrate (Fentanyl 2ml Vial) 25 mcg 1X ONCE IV 09/19/18 18:00 09/19/18 18:01 DC 09/19/18 17:38 Diphenhydramine HCl (Benadryl) 25 mg 1X ONCE IVP 09/19/18 18:15 09/19/18 18:16 DC 09/19/18 18:18 Methylprednisolone Sodium Succinate (SOLU-Medrol 125MG VIAL) 125 mg 1X ONCE IV 09/19/18 18:15 09/19/18 18:16 DC 09/19/18 18:18 Acetaminophen (Tylenol) 500 mg 1X ONCE PO 09/19/18 18:15 09/19/18 18:16 DC 09/19/18 19:00 Piperacillin Sod/ Tazobactam Sod 4.5 gm/Sodium Chloride 100 ml @ 200 mls/hr 1X ONCE IV 09/19/18 18:15 09/19/18 18:44 DC 09/19/18 19:18 Iohexol (Omnipaque 350 Mg/ml) 75 ml 1X ONCE IV 09/19/18 18:30 09/19/18 18:31 DC 09/19/18 18:33 Piperacillin Sod/ Tazobactam Sod 3.375 gm/Sodium Chloride 50 ml @ 100 mls/hr Q6HRS IV 09/20/18 00:00 09/20/18 13:08 Acetaminophen/ Hydrocodone Bitart (Lortab 10/325) 1 tab PRN Q6HRS PRN PO PAIN 09/20/18 13:00 09/20/18 13:17 Cyclobenzaprine HCl (Flexeril) 5 mg PRN TID PRN PO MUSCLE SPASMS 09/20/18 13:15 09/20/18 13:16 Imaging: Imaging: CT Head IMPRESSION: 1. No evidence of acute intracranial hemorrhage or mass. 2. Mild chronic small vessel ischemic changes and atrophy. CTA C/A/P IMPRESSION: Chest: 1. Normal caliber thoracic aorta. 2. Patchy groundglass opacities throughout the lungs. Differential considerations are broad including pulmonary edema (however the configuration has not changed over multiple prior chest radiographs), interstitial lung disease such as nonspecific interstitial pneumonitis (NSIP), hypersensitivity pneumonitis, or less likely eosinophilic pneumonia. 3. Subcentimeter noncalcified pulmonary nodules, indeterminate. Follow-up CT chest in 6 months is recommended. 4. Mild nonspecific lower lobe bronchitis. 5. Acute or subacute nondisplaced medial right clavicular fracture. Correlation with point tenderness is recommended. 6. Coronary artery calcifications. A/P: 1. Abdominal aorta normal in caliber. 2. Aortic atheromatous plaque including the major branch vessels with the greatest stenosis at the origin of the superior mesenteric artery, estimated at 50-70 percent. 3. Stable mild L1 compression deformity. 4. Too small to characterize right renal hypodensity. PE: GEN: NAD - uncomfortable when moving around bed/room HEENT: Atraumatic, PERRL LUNGS: diminished, NC HEART: RRR ABD: NABS, some distention, vague discomfort just above right inguinal region tracking around to right flank EXTREMITY: No edema SKIN: No rashes, no jaundice NEURO/PSYCH: A & O 3 A/P: A/P: Chronic back pain RLQ burning, chronic post-prandial bloating/early satiety Normocytic anemia - stable SMA stenosis GERD Irregular bowel habits/IBS - constipation recently CRC screen, h/o adenomatous polyps - last colonoscopy 2016 Hepatic steatosis Ibuprofen, prednisone, and ASA use -- Not sure the RLQ burning is a GI issue though has chronic GI symptoms. Will review CTA w/ Dr. Chahal. Agree w/ PPI. Miralax, etc. for constipation and chronic narcotic use. VASILIY SEE September 20, 2018 14:51
[2018-09-20 15:00] VITALS: BP 156/71
[2018-09-20] MEDS ORDERED: BISACODYL 5 MG TABLET.DR. PO PRN (15:00)
[2018-09-20] MEDS: ALBUTEROL SULFATE 2.5 MG/3 ML NEBU. NEB SCH ×2 (16:25→20:03)
[2018-09-20] MEDS: POLYETHYLENE GLYCOL 3350 17 GM PACKET. PO SCH ×2 (16:28→21:32)
--- NOTE | 2018-09-20 16:32 | HP ---
ADMIT DATE: 09/19/2018 CHIEF COMPLAINT AND HISTORY OF PRESENT ILLNESS: This 72-year-old white female is well known to me from followup in the office. The patient has a history of COPD and chronic back pain with lumbar radiculopathy and symptoms suggestive of spinal stenosis. The patient has had 2 prior back surgeries for this. Over the last several days, her back pain has increased dramatically. It is now radiating into both thighs, down to the feet when she gets a cough, has been unable to walk due to the amount of pain. When sitting in her chair all day on the day of admission, when she finally decided she had to come to the Emergency Room where she was unable to walk. On questioning, she thinks it is more pain than weakness. She has very strong claustrophobia and does not feel like she could do an MRI without some sort of sedation as she has tried before and it did not work. She also feels like she would need some sort of sedation because when she takes one of her hydrocodone pain pills, she itches all over, especially in her face, but it does help the pain and she is willing to put up with this, there has been over time for the pain relief and does not feel like she can lay on an MRI quietly because of the itching either. PAST MEDICAL HISTORY: Remarkable for COPD, GERD, depression, hyperlipidemia, hypertension, hypothyroidism, bradycardia. PAST SURGICAL HISTORY: Remarkable for tonsillectomy, back surgery x 2, shoulder surgery, benign breast biopsy and prior left lung surgery. MEDICATIONS: Brought with the patient, listed on the computer and have been addressed. ALLERGIES: SHE IS ALLERGIC TO PENTAZOCINE, LACTATE, IODINE, ROPINIROLE, SHELLFISH DERIVATIVES, TRAMADOL AND VARENICLINE. SOCIAL HISTORY: She continues to be a smoker, does not drink or use drugs; single, lives at home alone. FAMILY HISTORY: Noncontributory. REVIEW OF SYSTEMS: As mentioned above. PHYSICAL EXAMINATION: GENERAL: She is well-developed, well-nourished white female who appears uncomfortable. VITAL SIGNS: Stable. She is afebrile. HEAD, EYES, EARS, NOSE AND THROAT: Remarkable for glasses. NECK: Supple without lymphadenopathy or thyromegaly. CHEST: Reveals decreased breath sounds with diffuse wheezing throughout. HEART: Regular rate and rhythm without S3, S4, or murmur. ABDOMEN: Soft, nontender, without hepatosplenomegaly or masses. EXTREMITIES: Without cyanosis, clubbing, edema. NEUROLOGIC: She is intact. DIAGNOSTIC STUDIES: In the ER, she did have a fever of 100.7, complained of abdominal pain, was a little bit confused, leading to further workup there including CT scanning of the abdomen and pelvis with a CTA of the same to rule out an aneurysmal problem. This was negative as was CT head and chest x-ray for any acute pathologies. She did, however, on the CT of the chest shows some patchy ground glass opacities throughout both lungs, but differential considerations including pulmonary edema; however, things that had not really changed from prior chest x-rays, interstitial lung disease, nonspecific interstitial pneumonitis, hypersensitivity pneumonitis or less likely eosinophilic pneumonia. She was noted to have nondisplaced medial right clavicle fracture, coronary artery calcifications, abdominal aorta was normal. She was seen to have aortic atheromatous plaque with a greatest stenosis at the origin of the SMA being 50-70%, a stable mild L1 compression fracture and too small to characterize right renal hypodensity. LABORATORY DATA: Included a CBC that is essentially unremarkable. Hemoglobin was 11.6, which is a little bit low given her COPD. CMP was unremarkable as was lipase, troponin, CPK. Toxicology showed no alcohol in her system and urine was unremarkable. IMPRESSION: 1. Severe back pain, likely with a herniated nucleus pulposus with pain increased with coughing down her legs to her feet with inability to walk or do self-care. 2. Other problems listed above. PLAN: The patient has been admitted. Home meds will be continued. MRI of the back is being obtained. Because of the abdominal component and fever on admission, I am going to ask GI to see her. Neurosurgery will be consulted and the patient will be monitored, managed and treated appropriately. DALIA OJEDA MD DR: SUNDAR/chato JOB#: [id number] / [id number]
[2018-09-20] MEDS: BUDESONIDE 0.5 MG/2 ML NEBU. NEB SCH ×2 (17:19→20:03)
[2018-09-20 19:00] VITALS: BP 148/75
[2018-09-20] MEDS: LACTOBACILLUS RHAMNOSUS GG 1 CAPSULE. PO SCH (21:31)
[2018-09-20 23:00] VITALS: BP 137/72
[2018-09-21] MEDS: PIPERACILLIN/TAZOBACTAM 3.375 GM in IV NORMAL SALINE 50ML 50 ML IV SCH ×2 (00:20→06:14)
[2018-09-21 03:00] VITALS: BP 135/62
[2018-09-21] MEDS: HYDROcodone/APAP 10/325 1 TAB TABLET PO PRN ×3 (03:12→19:29)
[2018-09-21] MEDS: CYCLOBENZAPRINE 10 MG TABLET. PO PRN (03:12)
[2018-09-21] MEDS: LEVOTHYROXINE 137 MCG TABLET PO SCH (06:17)
[2018-09-21 07:00] VITALS: BP 152/66
[2018-09-21] MEDS: ALBUTEROL SULFATE 2.5 MG/3 ML NEBU. NEB SCH ×4 (08:44→19:56)
[2018-09-21] MEDS: BUDESONIDE 0.5 MG/2 ML NEBU. NEB SCH ×2 (08:44→19:56)
[2018-09-21] MEDS ORDERED: fentaNYL 100MCG/HR PATCH 1 PATCH PATCH TD SCH (09:00)
[2018-09-21] MEDS: LACTOBACILLUS RHAMNOSUS GG 1 CAPSULE. PO SCH ×2 (09:07→21:02)
[2018-09-21] MEDS: LOSARTAN POTASSIUM 50 MG TABLET. PO SCH (09:07)
[2018-09-21] MEDS: GABAPENTIN 300 MG CAPSULE. PO SCH ×3 (09:07→21:03)
[2018-09-21] MEDS: FLUoxetine HCL 10 MG CAPSULE PO SCH (09:07)
[2018-09-21] MEDS: POTASSIUM CHLORIDE 10 MEQ TABLET.ER. PO SCH (09:08)
[2018-09-21] MEDS: ATORVASTATIN CALCIUM 20 MG TABLET PO SCH (09:08)
[2018-09-21] MEDS: ASPIRIN CHEWABLE 81 MG TABLET. PO SCH (09:08)
[2018-09-21] MEDS: cloNIDine HCL 0.2 MG TABLET PO SCH ×2 (09:08→21:03)
[2018-09-21] MEDS: predniSONE 10 MG TABLET PO SCH (09:08)
[2018-09-21] MEDS: MULTIVITAMIN I-VITE TABLET. PO SCH (09:08)
[2018-09-21] MEDS: POLYETHYLENE GLYCOL 3350 17 GM PACKET. PO SCH ×2 (09:09→21:00)
[2018-09-21] MEDS: PANTOPRAZOLE 40 MG TABLET.DR. PO SCH (09:11)
[2018-09-21 11:00] VITALS: BP 123/57
[2018-09-21] MEDS: NICOTINE 21MG PATCH. TD SCH (12:00)
--- NOTE | 2018-09-21 13:42 | PDOC ---
Subjective: Subjective: Ate pretty well today. Stooling with Miralax. Back is the same but less leg pain. Objective: Vital Signs: Vital Signs Date Time Temp Pulse Resp B/P (MAP) Pulse Ox O2 Delivery O2 Flow Rate FiO2 09/21/18 13:04 Nasal Cannula 3.0 09/21/18 11:03 99 09/21/18 11:00 98.1 61 18 123/57 (79) 98.1 PE: GEN: NAD LUNGS: NC 3L HEART: RRR ABD: not particularly tender NEURO/PSYCH: A & O 3 A/P: Chronic back pain Chronic post-prandial bloating/early satiety, GERD, IBS SMA stenosis -- Awaiting neurosurgery input and/or MRI w/ anesthesia. Eating better. Continue same per GI - can adjust Miralax as needed (d/w her). Will return later today w/ Dr. Chahal. VASILIY SEE September 21, 2018 13:42
[2018-09-21 15:00] VITALS: BP 133/58
--- NOTE | 2018-09-21 16:41 | NUR ---
SW following pt for anticipated dc needs. Chart reviewed. Pt lives at home alone and no discharge recommendations noted at this time. Pt had used [facility] in the past.
[2018-09-21 19:00] VITALS: BP 156/111
--- NOTE | 2018-09-21 22:21 | PN ---
DATE: 09/21/2018 LOCATION: Room 536. SUBJECTIVE: The patient is awake, alert, states that the legs do feel somewhat better than when she was admitted and she is able with a walker to walk to the bathroom whereas she could not on admission, still has pain shooting down both legs to the feet with any sort of cough. OBJECTIVE: VITAL SIGNS: Stable. She is afebrile. GENERAL: She is awake and alert. CHEST: Reveals diminished breath sounds with expiratory wheezes. HEART: Regular. ABDOMEN: Benign. GI consultation was appreciated. We are awaiting Neurosurgery. I guess approval for an MRI as nursing tells me they were unable to do so yesterday without Neurosurgery approval while she is here in the hospital. IMPRESSION: 1. Low back, leg pain, likely due to herniated nucleus pulposus with pain increased with coughing down legs with inability to walk on admission, but pain somewhat decreased this point, able to walk to the bathroom. 2. Chronic obstructive pulmonary disease. 3. Multiple other problems outlined prior. At this point, I am going to wait on I guess Neurosurgery for their opinion on whether she needs an MRI or not. At this point, I believe we can stop the antibiotics. There is definitely no sign of infection to date. We will wait and see at this point in time what Neurosurgery suggestions are. DALIA OJEDA MD DR: SUNDAR/chato JOB#: [id number] / [id number]
[2018-09-21] MEDS: ZOLPIDEM 5 MG TABLET. PO PRN (22:32)
[2018-09-21 23:00] VITALS: BP 148/71
[2018-09-22] MEDS: ZOLPIDEM 5 MG TABLET. PO PRN (00:31)
[2018-09-22 02:54] VITALS: BP 145/44
[2018-09-22] MEDS: HYDROcodone/APAP 10/325 1 TAB TABLET PO PRN ×2 (05:15→16:17)
[2018-09-22] MEDS: PANTOPRAZOLE 40 MG TABLET.DR. PO SCH (06:08)
[2018-09-22] MEDS: LEVOTHYROXINE 137 MCG TABLET PO SCH (06:08)
[2018-09-22 07:00] VITALS: BP 154/77
[2018-09-22] MEDS: BUDESONIDE 0.5 MG/2 ML NEBU. NEB SCH (07:48)
[2018-09-22] MEDS: ALBUTEROL SULFATE 2.5 MG/3 ML NEBU. NEB SCH ×3 (07:49→15:46)
[2018-09-22] MEDS: GABAPENTIN 300 MG CAPSULE. PO SCH ×2 (08:48→14:00)
[2018-09-22] MEDS: LOSARTAN POTASSIUM 50 MG TABLET. PO SCH (08:48)
[2018-09-22] MEDS: ATORVASTATIN CALCIUM 20 MG TABLET PO SCH (08:48)
[2018-09-22] MEDS: predniSONE 10 MG TABLET PO SCH (08:49)
[2018-09-22] MEDS: MULTIVITAMIN I-VITE TABLET. PO SCH (08:49)
[2018-09-22] MEDS: POTASSIUM CHLORIDE 10 MEQ TABLET.ER. PO SCH (08:49)
[2018-09-22] MEDS: LACTOBACILLUS RHAMNOSUS GG 1 CAPSULE. PO SCH (08:49)
[2018-09-22] MEDS: cloNIDine HCL 0.2 MG TABLET PO SCH (08:49)
[2018-09-22] MEDS: FLUoxetine HCL 10 MG CAPSULE PO SCH (08:49)
[2018-09-22] MEDS: ASPIRIN CHEWABLE 81 MG TABLET. PO SCH (08:49)
[2018-09-22] MEDS: NICOTINE 21MG PATCH. TD SCH (08:50)
[2018-09-22] MEDS: POLYETHYLENE GLYCOL 3350 17 GM PACKET. PO SCH ×2 (08:52→16:16)
[2018-09-22 11:00] VITALS: BP 134/56
--- NOTE | 2018-09-22 13:01 | PDOC ---
Subjective: Subjective: Upset about MRI situation - can't be done . If she goes home, not sure she can manage pain, she doesn't have groceries, she has to take care of her cats, her best friend is trying to help but just got out of the hospital, her daughter is out of town. Objective: Objective: MRI can't be done until Tuesday. Vital Signs: Vital Signs Date Time Temp Pulse Resp B/P (MAP) Pulse Ox O2 Delivery O2 Flow Rate FiO2 09/22/18 11:44 Room Air 09/22/18 11:00 98.4 67 18 134/56 (82) 93 98.4 09/22/18 06:15 3.0 PE: GEN: crying A/P: Chronic back pain Chronic post-prandial bloating/early satiety w/ h/o GERD and IBS - stable -- Spent a lot of time talking with her. Apparently not able to do MRI - continue per Dr. Zhu. Continue PPI and Miralax. VASILIY SEE September 22, 2018 13:01
--- NOTE | 2018-09-22 13:43 | PDOC ---
Provider Note Provider Note Patient seen and examined at 1140 c/o back pain and leg pain increased with standing and walking improved since hospitalized MRI pending tenderness lower lumbar spine, multiple surgical scars on the lumbar spine neuro intact anesthesia required for MRI and may have to be done as OP hopefully MRI can be done today will follow ETHAN SANDOVAL MD September 22, 2018 13:43
[2018-09-22 15:00] VITALS: BP 144/60
--- NOTE | 2018-09-22 18:18 | NUR ---
Patient was discharged from the unit at 1800. Patient was escorted via wheelchair from the unit with a family member and staff. Patient left the unit with her belongings, home medication and discharge paperwork. Discharge paperwork was discussed with the patient prior to leaving and she had no questions or concerns. Patient left the hospital grounds in a private vehicle.
[2018-09-26] MEDS ORDERED: IV RINGERS,LACTATED 1000ML 1,000 ML IV SCH (07:00)
--- NOTE | 2018-09-26 10:14 | DS ---
DATE OF DISCHARGE: 09/22/2018 PRIMARY DIAGNOSIS: Severe low back pain with radicular symptoms in both legs and inability to walk or do self-care prior to admission. ADDITIONAL DIAGNOSES: Chronic obstructive pulmonary disease, hypertension, hypothyroidism, depression. CHIEF COMPLAINT AND HISTORY OF PRESENT ILLNESS: This is a 72-year-old white female well known to me from followup in the office. The patient has a history of COPD and chronic back pain with lumbar radiculopathy and spinal stenosis. She has had 2 prior back surgeries for this. Over the last several days, her back pain has increased dramatically, was radiating into both thighs down to the feet when she had a cough and has been unable to walk due to the amount of pain. When sitting in a chair all day the day of admission, she finally decided she had to come to the Emergency Room as she was unable to walk. She felt there was more pain and weakness associated with it. It was felt she needed an MRI and she has a very strong claustrophobia. An MRI with sedation was ordered at the time of admission. SUMMARY OF STAY: The patient was admitted. GI was asked to see her as there seemed to be an abdominal component to this in the Emergency ____. CTA of the chest, abdomen and pelvis was essentially negative, as was the chest x-ray ____. She remained in pain throughout the stay, but it did decrease partially slowly, ____ with bed rest. We attempted to get an MRI, but we were unable to do ____ needing approval to make it happen. Apparently, Neurosurgery saw her on the day of dismissal giving approval, but at that point, they were unable to arrange it due to the sedation needs in addition and apparently it was felt that the patient could be dismissed at the beginning of the following week after the . It was instructed to nursing to make sure that this was all scheduled with sedation on the Tuesday following the prior to discharge ____. DISPOSITION: The patient is discharged to home, regular diet, activity as tolerated, office in 1 week. DISCHARGE MEDICATIONS: ____ PLAN: MRI scan of the lumbar spine with sedation has been scheduled for the Tuesday following the . DALIA OJEDA MD DR: SUNDAR/chato JOB#: [id number] / [id number]
[2018-09-29] MEDS ORDERED: fentaNYL PF VIAL 100 MCG/2 ML VIAL IV PRN ×2 (07:00)
[2018-09-29] MEDS ORDERED: IV RINGERS,LACTATED 1000ML 1,000 ML IV SCH (07:00)
[2018-09-29] MEDS ORDERED: LIDOCAINE 1% PF 2 ML VIAL. ID PRN (07:00)
[2018-09-29] MEDS ORDERED: ONDANSETRON PF 4 MG/2 ML VIAL. IV PRN (07:00)
[2018-09-29 12:56] VITALS: BP 137/76
== END 2018-09-22 18:00 | disposition home or self-care (01) | DRG 552 ==
LOC: ER 15:23 → 5 NORTH 16:30
PROVIDERS: ADMIT Family Medicine; ATTEND Family Medicine
DX: M54.9 Dorsalgia, unspecified (principal); G12.9 Spinal muscular atrophy, unspecified; J44.9 Chronic obstructive pulmonary disease, unspecified; K21.9 Gastro-esophageal reflux disease without esophagitis; I10 Essential (primary) hypertension; F32.9 Major depressive disorder, single episode, unspecified; E03.9 Hypothyroidism, unspecified; G89.29 Other chronic pain; E78.5 Hyperlipidemia, unspecified; F17.210 Nicotine dependence, cigarettes, uncomplicated; K76.0 Fatty (change of) liver, not elsewhere classified; D64.9 Anemia, unspecified; K58.9 Irritable bowel syndrome, unspecified; K59.00 Constipation, unspecified; E78.00 Pure hypercholesterolemia, unspecified; C73 Malignant neoplasm of thyroid gland; F41.9 Anxiety disorder, unspecified; G47.33 Obstructive sleep apnea (adult) (pediatric); I87.2 Venous insufficiency (chronic) (peripheral); Z91.041 Radiographic dye allergy status; Z88.8 Allergy status to other drugs, medicaments and biological substances; Z88.6 Allergy status to analgesic agent; Z91.013 Allergy to seafood; Z79.82 Long term (current) use of aspirin; Z83.3 Family history of diabetes mellitus; Z82.49 Family history of ischemic heart disease and other diseases of the circulatory system; Z83.71 Family history of colonic polyps
CPT/HCPCS: 36415; 70450; 71045; 71275; 74174; 80053; 81001; 82553; 83605; 83690; 84484; 85025; 85610; 85730; 93005; 94640; 94760; 96374; 96375; 96376; G0480; J0360; J1200; J2060; J2270; J2405; J2543; J2930; J3010; J7512; J7613; J7626; Q9967; 99285-25

== ENCOUNTER → 2018-09-29 | Outpatient (CLI) | payer MEDICARE ==
[2018-09-22 15:00] VITALS: BP 144/60
[~2018-09-29] MED LIST changes: +BENZ-8 PO; +CYCL5TAB PO; +FENT1PAT21 TD; +FLUO20TA11 PO; +GABA300C18 PO; +KETAMINE HCL IN NACL, ISO-OSM 50 MG/5 ML SYRINGE ONE; +MIDAZOLAM HCL/PF 2 MG/2 ML VIAL. ONE; +OLME40TA12 PO; +ONDA4TAB12 PO; +POTA10TA12 PO; +PRED1TAB3 PO; +PROPOFOL 100 ML IV ONE; +PROPOFOL 20 ML IV ONE
--- NOTE | 2018-09-29 13:29 | RAD ---
MRI Lumbar Spine without contrast History: Worsening back pain, bilateral leg radiculopathy Technique: Multiplanar, multi sequential noncontrast MR imaging was performed of the lumbar spine. Comparison: None Findings: There is mild motion degradation. There is old superior L1 compression fracture with minimal osseous retropulsion superior, not associated with significant marrow edema. There has been posterolateral fusion at S1, L5, L4 at which there are pedicle screws bilaterally. Exam does not accurately evaluate integrity of hardware. There is degree of interbody fusion at L5-S1 anteriorly. There is advanced narrowing of the L3-4 intervertebral disc space, mild to moderate degenerative disc disease at L2-3. There is grade 1 anterior spondylolisthesis L5-S1, negligible anterior spondylolisthesis L3-4 and negligible posterior subluxation L2 relative to L3. There is some amorphous edema of L3 vertebral body not associated with significant height loss. There is no fluid in the intervertebral disc spaces. Conus terminates near L1-L2. There is nonspecific edema of the posterior subcutaneous fat of the lower back. There are small hemangiomas of L2 and T12. T12-L1: There is minimal buckling of the ligamentum flavum. Spinal canal and neural foramina are adequate. L1-L2: There is mild buckling of the ligamentum flavum and facet hypertrophic change. Spinal canal and neural foramina are adequate. L2-L3: There is fairly severe buckling of the ligamentum flavum. There is mild prominence of posterior epidural fat centrally. There is mild facet hypertrophic change. There is minimal disc osteophyte complex. Combination of findings results in severe spinal stenosis with near complete effacement of subarachnoid space, narrowing of the far lateral recesses greater on the left. There is mild neural foramina compromise bilaterally. L3-L4: There is prominence of posterior epidural fat centrally. There is [id number] buckling of the ligamentum flavum and facet degenerative change. There is broad posterior bulge. Combination of findings results in moderate to severe spinal stenosis with limited preserved subarachnoid space, lateral recess stenosis bilaterally. There is degree of attenuation of the thecal sac more centrally from posterior epidural lipomatosis.. There is [id number] left and fairly severe right neural foramina compromise. There is contact of the exiting right L3 nerve root by bulge in the neural foramen and extraforaminal region, also posterior narrowing by facet and ligamentum flavum. L4-L5: There has been posterior decompression, spinal canal widely patent. Neural foramina are adequate. L5-S1: There has been posterior decompression, spinal canal widely patent. Right neural foramen is poorly visualized due to artifact from hardware, probable fairly significant narrowing. There is fairly severe narrowing of the left neural foramen. Impression: 1. There has been posterolateral fusion L4-S1. 2. There is severe spinal stenosis at L2-3 and to a somewhat lesser degree at L3-4 as described. 3. There is neural foramina compromise as stated, more significant narrowing on the left at L5-S1 and on the right at L3-4. There is also probable narrowing of the right L5-S1 neural foramen although poorly characterized due to artifact from hardware. 4. There is advanced degenerative disc disease at L3-4 and to lesser degree at L2-3. Amorphous L3 vertebral body edema is likely reactive/degenerative in etiology. There is degree of interbody fusion L5-S1. 2. There is old superior L1 compression fracture with minimal osseous retropulsion. Electronically signed by: Kristian Wills MD (09/29/2018 1:26 PM) [id number]
--- NOTE | 2018-09-29 13:40 | RAD ---
MRI Thoracic Spine without contrast History: Worsening chronic back pain, bilateral leg radiculopathy greater on the right Technique: Multiplanar, multi sequential noncontrast MR imaging was performed of the thoracic spine. Comparison: None Findings: There is old superior L1 compression fracture with minimal osseous retropulsion superiorly. There is no edema suggestive of recent thoracic compression fracture. Thoracic vertebral body stature is overall maintained. AP alignment is within normal limits. There are small hemangiomas of T2, T6, T7, T12. Thoracic cord caliber is within normal limits without focal signal abnormality. Osseous retropulsion of L1 indents the ventral thecal sac without spinal stenosis. There is no significant thoracic spinal stenosis at any level of the thoracic spine. Facet degenerative change contributes to mild posterior narrowing of the left T6-7 and T3-T4 and right T10-11 neural foramina. There is mild degenerative disc disease centered about mid thoracic levels. There is anterior cervical fusion hardware at the visualized C5, C6, C7 levels. Impression: 1. There is no thoracic spinal stenosis. There is mild mid thoracic degenerative disc disease. There is anterior fusion hardware of visualized inferior cervical spine. There is old L1 compression fracture. Electronically signed by: Kristian Wills MD (09/29/2018 1:37 PM) [facility]
== END | disposition home or self-care (01) ==
LOC: MRI 10:18
PROVIDERS: ATTEND Family Medicine
DX: M48.56XA Collapsed vertebra, not elsewhere classified, lumbar region, initial encounter for fracture (principal); M48.07 Spinal stenosis, lumbosacral region; M51.35 Other intervertebral disc degeneration, thoracolumbar region; M89.38 Hypertrophy of bone, other site; Z98.1 Arthrodesis status
CPT/HCPCS: 72146; 72148; J2250; J2704

== ENCOUNTER → 2018-10-19 | Outpatient (CLI) | payer MEDICARE ==
[2018-09-22 15:00] VITALS: BP 144/60
[~2018-10-19] MED LIST changes: +IOHEXOL 180 MG/ML 10 ML VIAL. ONE; -KETAMINE HCL IN NACL, ISO-OSM 50 MG/5 ML SYRINGE ONE; +LIDOCAINE 1% PF 2 ML VIAL. ONE; -MIDAZOLAM HCL/PF 2 MG/2 ML VIAL. ONE; -PROPOFOL 100 ML IV ONE; -PROPOFOL 20 ML IV ONE; +methylPREDNISolone ACETATE 40 MG/ML VIAL. ONE; +methylPREDNISolone ACETATE 80 MG/ML VIAL. ONE
--- NOTE | 2018-10-19 19:20 | PAIN ---
DATE OF SERVICE: 10/19/2018 INITIAL CONSULTATION FOR PAIN CLINIC CHIEF COMPLAINT: Low back and bilateral lower extremity pains, right greater than left. HISTORY OF PRESENT ILLNESS: This is a 72-year-old female who presents with history of pain in low back, right leg and bilateral lower extremities for about 7 years, worse over the past year or so. The patient reports it suddenly increased, not the result of any specific injury or action that she is aware of, but has had significant pain in the low back and into the right greater than left lower extremity, mostly in the lateral anterior thigh, anterior-medial leg and knee on the right side greater than left. The patient reports it is constant, stabbing with tingling, numbness, radiating pain, aching across the low back itself. The patient reports no loss of motor function, but significant fatigability with the lower extremities and very apprehensive about her ambulation. She is using a walker when she is out of the house, but does not use it at home. The patient reports it awakens her from sleep at least twice a night most nights, does not affect her bowel or bladder control, but again does affect her ability to walk. She is using a walker and has a cane that she brings with her at times as well. The patient reports her disability rating from 0-10, 10 being the worst, is 8 with family and home responsibilities, 9 with recreation and social activity and occupation, 10 with sexual behavior, 5 with self-care and 0 with life support activities except for sleeping. The patient has tried physical therapy in the past, also chiropractic treatments and trigger point injections, which have not been significantly helpful in decreasing the pain over time as well. The patient did have MRI scan 09/29/2018, showing posterior lateral fusion at L4-S1 with severe spinal stenosis at L2-L3 and some lesser degree at L3-L4 with neural foraminal compromise, more significant narrowing in the left at L5-S1 and on the right at L3-L4 with probable narrowing at the right L5-S1 neural foramen, although poorly characterized due to artifact from the hardware. Advanced degenerative disk disease at L3-L4 and to a lesser degree at L2-L3. CURRENT MEDICATIONS: Include, daily baby aspirin, Lutein, hydrocodone, clonidine, fluoxetine, benzonatate, levothyroxine, ondansetron, atorvastatin, cyclobenzaprine, gabapentin, Benicar, potassium chloride, Protonix, fentanyl patch, Reglan, prednisone, naproxen and Ambien. Also, Advair inhaler. ALLERGIES: Allergic to TALWIN and SHRIMP. FAMILY HISTORY: Significant for lung cancer, other types of cancers. SOCIAL HISTORY: The patient drinks about 2 glasses of alcohol 3-4 times a week. Does smoke and uses vapor cigarettes as well. He continues to smoke less than a pack a day, but has for many years. Does not use any illegal, illicit or recreational drugs. He is single, and lives locally in [facility] in [place], [place]. 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 PAST MEDICAL HISTORY: Includes hearing loss, shortness of breath, COPD, cigarette smoking, hypertension, atrial fibrillation, gastroesophageal reflux, arthritis, osteopenia, depression, bradycardia. PREVIOUS SURGERIES: Include right lumbar laminectomy and fusion, knee scope, bilateral carpal tunnel release, parathyroidectomy, bilateral cataract extractions, anterior cervical diskectomy and fusion in 2014 and thoracotomy on the right. REVIEW OF SYSTEMS: The patient's review of systems is positive for those items mentioned in history of present illness. All systems reviewed and otherwise negative. It is complete, full and well documented on the patient's chart. PHYSICAL EXAMINATION: VITAL SIGNS: The patient's blood pressure is 124/37, pulse 64, respirations 16, temperature 98.9 degrees Fahrenheit, height is 5 feet 1-1/2 inches, weight is 181 pounds. GENERAL: The patient is awake, alert, oriented, appropriate, very pleasant demeanor. HEENT: Head shows normocephalic, atraumatic. The patient wears eye glasses. Extraocular movements are intact and symmetrical. Oral cavity: Mucous membranes moist and pink. Dentition is intact. NECK: Shows anterior throat supple without palpable lymphadenopathy noted. Swallow reflex is symmetrical. CHEST: Shows normal on inspection. Breath sounds clear to auscultation bilaterally with some minor wheezing in the bases posteriorly only. HEART: Shows S1, S2 clear. No murmurs auscultated. ABDOMEN: Obese, soft, nontender, nondistended. No palpable organomegaly is noted. No rebound or guarding demonstrated. BACK: Shows spine grossly in the midline. Slight exaggeration of thoracic kyphosis, some minor flattening of cervical lordotic curvature as well as lumbar lordotic curvature with extensive lumbar surgical scars noted. Lumbar paraspinous muscle shows symmetrical on inspection, with palpation shows some moderate tenderness diffusely bilaterally with palpation, but only diffusely in the middle, upper and lower distribution of paraspinous muscles without atrophy, hypertrophy, without trigger points. The patient has good rotational motion of lumbar spine with some limited extension, but not secondary to pain. Forward flexion about 40 degrees, right and left lateral rotation at approximately 10 degrees without significant increase in pain with these maneuvers. EXTREMITIES: Lower extremities show deep tendon reflexes at 1+ in the patellar and tendo calcaneus tendons are equal. Motor exam is approximately 4 on a scale of 5 and symmetrical with dorsiflexion, extension, quadriceps and hamstring flexion. Peripheral pulses are 1+ posterior tibia. No peripheral edema is noted. Lower extremities are warm and dry to touch, equal in color and appearance. The patient is wearing compression stockings on the lower extremities as well on initial exam. The patient's straight leg raise noted to be positive on the right at about 40 degrees and decreased with knee flexion, left side is negative. Gaenslen's and Lee's maneuvers are grossly negative bilaterally as well. The patient is able to stand, has difficulty trying to stand on her toes as she loses balance quickly, using a walker to ambulate and has that with her today as well. SKIN: Warm and dry. Good turgor. No edema. No sores, rashes throughout. IMPRESSION: This is a 72-year-old female with: 1. A long history, about 7 years, low back and lower extremity pain, worse on the right than the left. 2. MRI scan of lumbar spine as noted. 3. Hypertension with atrial fibrillation. 4. Arthritis. 5. Hypothyroidism. 6. Previous lumbar surgery. PLAN: Options were discussed with the patient including conservative medical management, physical therapy, interventional techniques. She would like to proceed with interventional techniques. We discussed a lumbar epidural steroid injection using description as well as anatomical models to describe the procedure. Risks were then discussed including, but not limited to bleeding, infection, possibility of epidural hematoma and subsequent neurological compromise, dural puncture, headaches, spinal cord and/or nerve damage, side effects of steroid medication and poor results regarding pain control. The patient understands and wished to proceed. The patient will return to the clinic in approximately 2 weeks for followup. She was counseled as to return appointment, activity level and side effects to be aware of. DIAGNOSES: 1. Lumbar radiculopathy with lumbar spinal stenosis. 2. Lumbar degenerative disk disease. 3. Post-lumbar laminectomy syndrome. PROCEDURE: Lumbar epidural steroid injection under sterile prep and drape using local anesthetic using C-arm fluoroscopic guidance. MEDICATION INJECTED: A total of 120 mg Depo-Medrol plus 10 mL of preservative-free normal saline and 2 mL of contrast. CONDITION AT DISCHARGE: Stable. The patient tolerated the procedure well, had no complications. MACIEJ BOTELLO MD DR: ALIVIA/chato JOB#: [id number] / [id number] DALIA Cavazos MD
== END ==
LOC: PNCL 14:02
PROVIDERS: ATTEND Anesthesiology
DX: M51.16 Intervertebral disc disorders with radiculopathy, lumbar region (principal); M96.1 Postlaminectomy syndrome, not elsewhere classified; M48.061 Spinal stenosis, lumbar region without neurogenic claudication; J44.9 Chronic obstructive pulmonary disease, unspecified; F17.210 Nicotine dependence, cigarettes, uncomplicated; I10 Essential (primary) hypertension; I48.91 Unspecified atrial fibrillation; K21.9 Gastro-esophageal reflux disease without esophagitis; F32.9 Major depressive disorder, single episode, unspecified; E89.0 Postprocedural hypothyroidism; Z88.8 Allergy status to other drugs, medicaments and biological substances; Z98.42 Cataract extraction status, left eye; Z98.41 Cataract extraction status, right eye; Z98.890 Other specified postprocedural states; Z79.82 Long term (current) use of aspirin; Z96.1 Presence of intraocular lens
CPT/HCPCS: 62323; J1030; J1040; Q9965

== ENCOUNTER 2018-11-30 10:57 | Emergency (ER) | payer MEDICARE ==
[~2018-11-30] VITALS: Ht 154.9 cm; Wt 75.7 kg
[~2018-11-30 10:57] MED LIST changes: -PRED50TA PO
[2018-11-30] MEDS ORDERED: IPRATRPIUM/ALBUTEROL 0.5/2.5MG 3 ML NEBU. NEB ONE (11:30)
[2018-11-30] MEDS ORDERED: methylPREDNISolone SOD SUCC PF 125 MG/2 ML VIAL. IV ONE (11:30)
--- NOTE | 2018-11-30 11:36 | PHYS DOC ---
Past Medical History Past Medical History: COPD, Depression, GERD, High Cholesterol, Hypertension, Hypothyroid, Other Additional Past Medical Histor: bradycardia, lung fibroids, THYROID CANCER, PARATHYROID CANCER, PAROTID CA Past Surgical History: Cancer Surgery, Tonsillectomy Additional Past Surgical Histo: X 2 BACK SURGERIES,RIGHT SHOULDER SURGERY,BENIGN BREAST BIOPSY,RIGHT LUNG, Additional Information: PT REPORTS SMOKING 1 PACK/DAY Alcohol Use: Occasionally Drug Use: None Adult General Chief Complaint Chief Complaint: SHORTNESS OF BREATH HPI HPI Patient is a 72 year old female who presents to the emergency Department today from pain management with complaints of shortness of breath. Patient states she just arrived to pain management when she suddenly became short of breath. She currently denies any pain. Patient states she has been receiving injections in her back for chronic low back and bilateral hip pain. ROS Patient denies any chest pain, palpitations, or swelling of her extremities. She also denies any fever, cough, nausea, vomiting, diarrhea, abdominal pain, dysuria, increased urinary frequency, or hematuria. She denies any change in her chronic back and hip pain. She describes the shortness of breath as chest tightness. She denies any recent long car rides, bedrest, or air travel. All other ROS is neg unless otherwise noted in HPI. Review of Systems Review of Systems See Above Current Medications Current Medications Current Medications Medications (Trade) Dose Ordered Sig/Jon Start Time Stop Time Status Last Admin Dose Admin Albuterol/ Ipratropium (Duoneb) 3 ml 1X ONCE 11/30/18 11:30 11/30/18 11:31 DC 11/30/18 11:39 3 ML Methylprednisolone Sodium Succinate (SOLU-Medrol 125MG VIAL) 125 mg 1X ONCE 11/30/18 11:30 11/30/18 11:31 DC 11/30/18 12:00 125 MG Allergies Allergies Allergies Coded Allergies Type Severity Reaction Last Updated Verified shellfish derived Allergy Severe Rash 02/21/18 Yes Pentazocine Lactate Allergy Intermediate Rash 02/21/18 Yes iodine Allergy Intermediate 09/21/18 Yes ropinirole Allergy Intermediate 05/11/18 Yes varenicline Allergy Intermediate 05/11/18 Yes tramadol Adverse Reaction Intermediate Nausea and Vomiting 09/21/18 Yes Physical Exam Physical Exam See Above Constitutional: Well developed, well nourished, no acute distress, non-toxic appearance, obese, odor of tobacco. [] HENT: Normocephalic, atraumatic, bilateral external ears normal, oropharynx moist, no oral exudates, nose normal. [] Eyes: conjunctiva normal, no discharge. [] Neck: Normal range of motion, no tenderness, supple, no stridor. [] Cardiovascular:Heart rate regular rhythm, no murmur [] Lungs & Thorax: Bilateral breath sounds clear to auscultation in upper lobes bilaterally, diminished posterior lower lobes bilaterally, occasional expiratory wheeze [] Abdomen: Bowel sounds normal, soft, no tenderness, no masses, no pulsatile masses. [] Skin: Warm, dry, no erythema, no rash. [] Back: No CVA tenderness. [] Extremities: No cyanosis, no clubbing, ROM intact, no edema. [] Neurologic: Alert and oriented X 3, no focal deficits noted. [] Psychologic: Affect normal, judgement normal, mood normal. [] Current Patient Data Vital Signs Vital Signs Date Time Temp Pulse Resp B/P (MAP) Pulse Ox O2 Delivery O2 Flow Rate FiO2 11/30/18 12:44 86 121/58 (79) Room Air 11/30/18 12:14 28 97 2.0 11/30/18 11:10 97.5 97.5 Lab Values Laboratory Tests Test 11/30/18 11:25 11/30/18 12:10 11/30/18 12:51 White Blood Count 7.4 x10^3/uL (4.0-11.0) Red Blood Count 4.14 x10^6/uL (3.50-5.40) Hemoglobin 11.6 g/dL (12.0-15.5) L Hematocrit 34.7 % (36.0-47.0) L Mean Corpuscular Volume 84 fL (79-100) Mean Corpuscular Hemoglobin 28 pg (25-35) Mean Corpuscular Hemoglobin Concent 33 g/dL (31-37) Red Cell Distribution Width 18.8 % (11.5-14.5) H Platelet Count 222 x10^3/uL (140-400) Neutrophils (%) (Auto) 69 % (31-73) Lymphocytes (%) (Auto) 21 % (24-48) L Monocytes (%) (Auto) 8 % (0-9) Eosinophils (%) (Auto) 1 % (0-3) Basophils (%) (Auto) 1 % (0-3) Neutrophils # (Auto) 5.1 x10^3/uL (1.8-7.7) Lymphocytes # (Auto) 1.5 x10^3/uL (1.0-4.8) Monocytes # (Auto) 0.6 x10^3/uL (0.0-1.1) Eosinophils # (Auto) 0.1 x10^3/uL (0.0-0.7) Basophils # (Auto) 0.1 x10^3/uL (0.0-0.2) Prothrombin Time 13.1 SEC (11.7-14.0) Prothrombin Time INR 1.0 (0.8-1.1) PTT 33 SEC (24-38) D-Dimer (Mercedes) 0.59 ug/mlFEU (0.00-0.50) H Sodium Level 134 mmol/L (136-145) L Potassium Level 3.7 mmol/L (3.5-5.1) Chloride Level 96 mmol/L (98-107) L Carbon Dioxide Level 26 mmol/L (21-32) Anion Gap 12 (6-14) Blood Urea Nitrogen 15 mg/dL (7-20) Creatinine 1.3 mg/dL (0.6-1.0) H Estimated GFR (Cockcroft-Gault) 40.0 BUN/Creatinine Ratio 12 (6-20) Glucose Level 108 mg/dL (70-99) H Calcium Level 8.7 mg/dL (8.5-10.1) Magnesium Level 1.5 mg/dL (1.8-2.4) L Total Bilirubin 0.5 mg/dL (0.2-1.0) Aspartate Amino Transferase (AST) 28 U/L (15-37) Alanine Aminotransferase (ALT) 21 U/L (14-59) Alkaline Phosphatase 62 U/L (46-116) Troponin I Quantitative < 0.017 ng/mL (0.000-0.055) LU-Ufb-K-Type Natriuretic Peptide 99 pg/mL (0-124) Total Protein 6.3 g/dL (6.4-8.2) L Albumin 3.2 g/dL (3.4-5.0) L Albumin/Globulin Ratio 1.0 (1.0-1.7) Urine Collection Type Unknown Urine Color Yellow Urine Clarity Clear Urine pH 5.5 Urine Specific [place] 1.010 Urine Protein Negative mg/dL (NEG-TRACE) Urine Glucose (UA) Negative mg/dL (NEG) Urine Ketones (Stick) Negative mg/dL (NEG) Urine Blood Negative (NEG) Urine Nitrite Negative (NEG) Urine Bilirubin Negative (NEG) Urine Urobilinogen Dipstick 0.2 mg/dL (0.2 mg/dL) Urine Leukocyte Esterase Large (NEG) Urine RBC 0 /HPF (0-2) Urine WBC 5-10 /HPF (0-4) Urine Squamous Epithelial Cells Many /LPF Urine Bacteria Moderate /HPF (0-FEW) Laboratory Tests 11/30/18 11:25 Laboratory Tests 11/30/18 12:10 EKG EKG 1143- SR, rate 82, abnormal left axis deviation, left anterior fascicular block, NO STEMI, read by Dr. Rooney[] Radiology/Procedures Radiology/Procedures PROCEDURE: CHEST PA & LATERAL CHEST PA LATERAL History: Shortness of air Comparison: September 19, 2018 and May 09, 2018 Findings: 2 views of the chest are submitted. Pericardial cardiac silhouette is within normal limits. There is again cervical fusion hardware. There is atherosclerotic calcification near the aortic arch. There is linear fibrotic change and suture line of the mid to superior right hemithorax as seen previously. There is no new lobar consolidation, pleural fluid, pneumothorax. There is emphysema. Impression: 1. No acute radiographic abnormality is identified. There is emphysema. [] Course & Med Decision Making Course & Med Decision Making Pertinent Labs and Imaging studies reviewed. (See chart for details) dx: Acute COPD exacerbation ddx: CHF, PE, HI, CHF, pneumonia, bronchitis Pt presents to the ER for an acute onset of SOA after walking into her pain management appointment this morning. Pt states that the air outside was very humid and she thinks that is why she felt so SOA. She was given a duoneb tx in the ER and 125 of solumedrol, she reported feeling better and her lung sounds improved after tx. Pt offered admission to the hospital for acute COPD exacerbation, pt declined states she feels much better and tomorrow is her birthday and she doesn't want to be here. CXR no acute findings, CBC normal per pt, CMP Publishing Manager 1.3., Mg 1.5, Na 134, Cl 96, otherwise unremarkable; troponin <0.017 , BNP 99; Pt/INR unremarkable, D-dimer 0.59 UA likely contaminated as pt is asymptomatic. EKG no acute changes. Prescription written for prednisone 50 mg tabs, 1 PO q d starting tomorrow 12/01/18. VSS, pt instructed to follow up with PCP in 1-2 days, return to ER if sx worsen. Patient verbalized an understanding of home care, medications, follow-up, and return to ED instructions and was in agreement with the plan of care. Dragon Disclaimer Dragon Disclaimer This electronic medical record was generated, in whole or in part, using a voice recognition dictation system. Departure Departure Impression: Primary Impression: Acute exacerbation of chronic obstructive pulmonary disease (COPD) Disposition: 01 HOME, SELF-CARE Condition: STABLE Referrals: DALIA OJEDA MD (PCP) Patient Instructions: Chronic Obstructive Pulmonary Disease Exacerbation, [id number] Additional Instructions: Fill prescription and use as directed. Use your nebulizer as prescribed. Follow up with Dr. Ojeda in 1-2 days, Return to the ER if symptoms worsen. Have a HAPPY BIRTHDAY!!! Scripts Prednisone (PREDNISONE) 50 Mg Tablet 1 TAB PO DAILY for 5 Days, #5 TAB 0 Refills begin taking on 12/01/18 Prov: SAVANNA NUNEZ APRN 11/30/18 SAVANNA NUNEZ APRN Nov 30, 2018 11:36
[2018-11-30 11:37] LABS: BASO # 0.1 x10^3/uL (0.0-0.2); BASO % 1 % (0-3); EOS # 0.1 x10^3/uL (0.0-0.7); EOS % 1 % (0-3); HEMATOCRIT 34.7 % (36.0-47.0); HEMOGLOBIN 11.6 g/dL (12.0-15.5); LYMPH # 1.5 x10^3/uL (1.0-4.8); LYMPH % 21 % (24-48); MEAN CORPUSCULAR HEMOGLOBIN 28 pg (25-35); MEAN CORPUSCULAR HGB CONC 33 g/dL (31-37); MEAN CORPUSCULAR VOLUME 84 fL (79-100); MONO # 0.6 x10^3/uL (0.0-1.1); MONO % 8 % (0-9); NEUT # 5.1 x10^3/uL (1.8-7.7); NEUT % 69 % (31-73); PLATELET COUNT 222 x10^3/uL (140-400); RED BLOOD COUNT 4.14 x10^6/uL (3.50-5.40); RED CELL DISTRIBUTION WIDTH 18.8 % (11.5-14.5); WHITE BLOOD COUNT 7.4 x10^3/uL (4.0-11.0)
--- NOTE | 2018-11-30 11:42 | RAD ---
CHEST PA LATERAL History: Shortness of air Comparison: September 19, 2018 and May 09, 2018 Findings: 2 views of the chest are submitted. Pericardial cardiac silhouette is within normal limits. There is again cervical fusion hardware. There is atherosclerotic calcification near the aortic arch. There is linear fibrotic change and suture line of the mid to superior right hemithorax as seen previously. There is no new lobar consolidation, pleural fluid, pneumothorax. There is emphysema. Impression: 1. No acute radiographic abnormality is identified. There is emphysema. Electronically signed by: Kristian Wills MD (11/30/2018 11:39 AM) [facility]
[2018-11-30 11:48] LABS: PROTHROMBIN TIME PATIENT 13.1 SEC (11.7-14.0)
[2018-11-30 11:51] LABS: D-DIMER 0.59 ug/mlFEU (0.00-0.50)
[2018-11-30 12:36] LABS: CALCIUM 8.7 mg/dL (8.5-10.1); CREATININE 1.3 mg/dL (0.6-1.0); POTASSIUM 3.7 mmol/L (3.5-5.1)
[2018-11-30 12:42] LABS: ALBUMIN 3.2 g/dL (3.4-5.0); MAGNESIUM 1.5 mg/dL (1.8-2.4); TOTAL BILIRUBIN 0.5 mg/dL (0.2-1.0); TOTAL PROTEIN 6.3 g/dL (6.4-8.2)
[2018-11-30 12:44] VITALS: BP 121/58
--- NOTE | 2018-11-30 13:08 | EKG ---
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
[2018-11-30 13:16] LABS: BILIRUBIN,URINE NEGATIVE (NEG); CLARITY,URINE CLEAR; COLOR,URINE YELLOW; NITRITE,URINE NEGATIVE (NEG); PH,URINE 5.5; PROTEIN,URINE NEGATIVE (NEG-TRACE); UROBILINOGEN,URINE 0.2 mg/dL (0.2 mg/dL)
[2018-11-30 13:42] LABS: BACTERIA,URINE MODERATE /HPF (0-FEW); RBC,URINE 0 /HPF (0-2); SQUAMOUS EPITHELIAL CELL,UR MANY /LPF
[2018-11-30] MEDS ORDERED: PRED50TA PO (14:29)
== END 2018-11-30 14:43 | disposition home or self-care (01) ==
LOC: ER 10:57
DX: J44.1 Chronic obstructive pulmonary disease with (acute) exacerbation (principal); F32.9 Major depressive disorder, single episode, unspecified; K21.9 Gastro-esophageal reflux disease without esophagitis; E78.00 Pure hypercholesterolemia, unspecified; I10 Essential (primary) hypertension; E03.9 Hypothyroidism, unspecified; F17.200 Nicotine dependence, unspecified, uncomplicated; Z90.89 Acquired absence of other organs; R07.89 Other chest pain; Z88.8 Allergy status to other drugs, medicaments and biological substances; Z91.041 Radiographic dye allergy status; Z88.5 Allergy status to narcotic agent; Z91.013 Allergy to seafood
CPT/HCPCS: 36415; 71046; 80053; 81001; 83735; 83880; 84484; 85025; 85379; 85610; 85730; 87086; 93005; 94640; 96374; 99285; J2930; J7620

== ENCOUNTER → 2018-11-30 | Outpatient (CLI) | payer MEDICARE ==
[~2018-11-30] MED LIST changes: -IOHEXOL 180 MG/ML 10 ML VIAL. ONE; -LIDOCAINE 1% PF 2 ML VIAL. ONE; +PRED50TA PO; -methylPREDNISolone ACETATE 40 MG/ML VIAL. ONE; -methylPREDNISolone ACETATE 80 MG/ML VIAL. ONE
--- NOTE | 2018-11-30 21:27 | PAIN ---
DATE OF SERVICE: 11/30/2018 PROGRESS NOTE FOR PAIN CLINIC DIAGNOSES: Lumbar radiculopathy with lumbar spinal stenosis, lumbar degenerative disk disease and post-lumbar laminectomy syndrome. HISTORY OF PRESENT ILLNESS: The patient is a 72-year-old female who returns for followup status post lumbar epidural steroid injection x 1. The patient reports about 50% improvement for the first 10 days or so in the low back and leg pain. The patient reports her thigh pain is still fairly significant, however, rates the pain as 8 on a scale of 10 at its worse in the last week, 8 on average and a 6 at its least and is an 8 today. The patient reports it is tingling, burning, cramping, aching, shooting, radiating, constant in the low back and legs, again present bilaterally, essentially equal right and left into the thighs. The patient reports she has been sleeping better at night with increased her distance walking for the first 10 days or so, doing activities at home as well as traveling and sleeping better, but now, the pain is returning, but essentially to its baseline. The patient reports no new motor or sensory deficits, no new bowel or bladder incontinence or other complaints. The patient does report a recent upper respiratory infection. She is on the 3rd day of antibiotics for these and is feeling somewhat short of breath today as well. PHYSICAL EXAMINATION: VITAL SIGNS: The patient's blood pressure is 125/65, pulse 73, respirations 16, temperature 97.8 degrees Fahrenheit and weight is 181 pounds. GENERAL: The patient is awake, alert, oriented, appropriate, very pleasant demeanor. HEENT: Shows normocephalic, atraumatic. Extraocular movements are intact and symmetrical. Oral cavity: Mucous membranes moist and pink. Dentition is intact. NECK: Shows anterior throat supple without palpable lymphadenopathy noted. Swallow reflex symmetrical. CHEST: Shows normal on inspection. Breath sounds show significant wheezing and rhonchi on the right side, both anteriorly and posteriorly in the upper and lower lung sanchez on the right. Left side is less wheezy, but some wheezes present, but without rhonchi on the left side. HEART: Shows S1, S2 clear. No murmurs auscultated. ABDOMEN: Obese, soft, nontender and nondistended. BACK: Shows spine grossly in the midline. Well-healed surgical scars noted in the lumbar distribution. Lumbar paraspinous muscle shows symmetrical on inspection, on palpation shows some moderate tenderness diffusely without radiation. The patient has good rotational motion of lumbar spine. EXTREMITIES: Lower extremities show deep tendon reflexes 1+ in the patellar and tendo-calcaneus tendons. Motor exam is approximately 4 on a scale of 5 and equal with dorsiflexion, extension, quadriceps and hamstring flexion. Peripheral pulses are 1+ bilaterally. PLAN: Options were discussed with the patient. The patient's old chart was reviewed as her current medication regimen updated. Current review of systems updated today as well and as we discussed her plan today, the patient became progressively more short of breath. We did put 3 liters of oxygen nasal cannula with the patient, which helped to some extent. O2 sats were 99%-100%, although the progressive shortness of breath was continuing. After discussion with the patient, we elected to have her go to the Emergency Department for chest x-ray and follow up with upper respiratory infection. Again, significant rhonchi on the right side lung sanchez anteriorly and posteriorly, and she would like to have this checked out in the Emergency Department today. We will transport her there, have her follow up in approximately 1 week. MACIEJ BOTELLO MD DR: ALIVIA/chato JOB#: [id number] / [id number]
== END | disposition home or self-care (01) ==
LOC: PNCL 10:14
PROVIDERS: ATTEND Anesthesiology
DX: M51.16 Intervertebral disc disorders with radiculopathy, lumbar region (principal); M48.061 Spinal stenosis, lumbar region without neurogenic claudication; M96.1 Postlaminectomy syndrome, not elsewhere classified
CPT/HCPCS: G0463

== ENCOUNTER → 2018-12-29 | Outpatient (CLI) | payer MEDICARE ==
[2018-11-30 12:44] VITALS: BP 121/58
[~2018-12-29] MED LIST changes: +IOHEXOL 180 MG/ML 10 ML VIAL. ONE; +PRED50TA PO; +methylPREDNISolone ACETATE 40 MG/ML VIAL. ONE; +methylPREDNISolone ACETATE 80 MG/ML VIAL. ONE
--- NOTE | 2018-12-29 23:48 | PAIN ---
DATE OF SERVICE: 12/29/2018 PROGRESS NOTE FOR PAIN CLINIC DIAGNOSES: Lumbar radiculopathy with lumbar spinal stenosis, lumbar degenerative disk disease and lumbar post-laminectomy syndrome. HISTORY OF PRESENT ILLNESS: The patient is a 73-year-old female who returns for followup status post lumbar epidural steroid injection x 1. The patient returned, was having shortness of breath at last visit and was sent to the Emergency Department where things checked out, not to be any cardiogenic shortness of breath or other problems. She was just having some anxiety. The patient returns today with her daughter, wishing to proceed with a second lumbar epidural steroid injection with pain reported in the low back, bilateral lower extremities, lateral, anterior thighs, anterior medial thighs, medial lower legs and in medial knees and across the low back. The patient reports it is a 9 on a scale of 10 at its worst in the past week, 8 on average, 7 at its least and is an 8 today. The patient reports it is sharp, dull, shooting, stabbing, cramping, tingling, burning, constant, becoming severe at times, on and off in intensity unbearable with walking or standing more than about 15 minutes. The patient reports no new motor or sensory deficits, no new bowel or bladder incontinence, still awakens her from sleep about once a night. PHYSICAL EXAMINATION: VITAL SIGNS: The patient's blood pressure 139/76, pulse 93, respirations 18, temperature 98.2 degrees Fahrenheit, height is 5 feet 1 inch, weight is 183 pounds. GENERAL: The patient is awake, alert, oriented, appropriate, very pleasant demeanor. HEENT: Shows normocephalic, atraumatic. Extraocular movements are intact and symmetrical. Oral cavity, mucous membranes are moist and pink. Dentition is intact. NECK: Shows anterior throat supple without palpable lymphadenopathy noted. Swallow reflex symmetrical. CHEST: Shows normal on inspection. Breath sounds clear to auscultation bilaterally. HEART: Shows S1, S2 clear. No murmurs auscultated. ABDOMEN: Soft, nontender, nondistended. No palpable organomegaly is noted. No rebound or guarding demonstrated. BACK: Shows spine grossly in the midline. Normal appearing thoracic kyphosis and lumbar lordotic curvature is flattened with lumbar extensive midline well-healed surgical scar noted. Lumbar paraspinous muscle shows symmetrical on inspection, on palpation shows some moderate tenderness diffusely throughout the upper, middle and lower distribution of paraspinous muscles. EXTREMITIES: Lower extremities show deep tendon reflexes 1+ in the patellar and tendo calcaneus tendons. Motor exam is approximately 4 on a scale of 5, but symmetrical and equal dorsiflexion, extension, quadriceps and hamstring flexion. Peripheral pulses are 1+ posterior tibia. No peripheral edema is noted bilaterally. Options were discussed with the patient. The patient's old chart was reviewed as her current medication regimen updated. Current review of systems updated today as well. We will proceed with a second in the series of lumbar epidural steroid injection today with fluoroscopic guidance. Risks were again discussed including, but not limited to bleeding, infection, possibility of epidural hematoma, subsequent neurologic compromise, dural puncture, headaches, spinal cord and/or nerve damage, side effects of steroid medication and poor results regarding pain control. The patient understands and wished to proceed. The patient will return to clinic in approximately 2 weeks for followup. She was counseled on return appointment, activity level and side effects to be aware of. DIAGNOSES: Lumbar radiculopathy with lumbar spinal stenosis with lumbar degenerative disk disease, post-lumbar laminectomy syndrome. PROCEDURE: Lumbar epidural steroid injection, translaminar approach at the L3-L4 level using C-arm fluoroscopic guidance under sterile prep and drape using local anesthetic. MEDICATION INJECTED: The patient received a total of 120 mg Depo-Medrol plus 10 mL of preservative-free normal saline and 2 mL of contrast. CONDITION AT DISCHARGE: Stable. The patient tolerated the procedure well, had no complications. MACIEJ BOTELLO MD DR: ALIVIA/chato JOB#: [id number] / [id number]
== END ==
LOC: PNCL 11:11
PROVIDERS: ATTEND Anesthesiology
DX: M51.16 Intervertebral disc disorders with radiculopathy, lumbar region (principal); M48.061 Spinal stenosis, lumbar region without neurogenic claudication; M96.1 Postlaminectomy syndrome, not elsewhere classified
CPT/HCPCS: 62323; J1030; J1040; Q9965

== ENCOUNTER → 2019-03-27 | Outpatient (CLI) | payer MEDICARE ==
[~2019-03-27] MED LIST changes: +CEFD300C PO; +DILT180C29 PO; +DOXY100T PO; +DULO60CA6 PO; +FURO-68 PO; +HYDR25TA PO; -IOHEXOL 180 MG/ML 10 ML VIAL. ONE; +IPRA0.2S5 NEB; +KRIL1CAP23 PO; +OMEP40CA45 PO; -OMEP40CA5 PO; +ROFL250T PO; +VENTOLIN HFA18 GM INH; -methylPREDNISolone ACETATE 40 MG/ML VIAL. ONE; -methylPREDNISolone ACETATE 80 MG/ML VIAL. ONE
--- NOTE | 2019-03-27 17:53 | RAD ---
Study: CHEST PA LATERAL Indication: Clearance for surgery. Comparison: 11/30/2018 Findings: Unchanged configuration of the cardiomediastinal silhouette and afua. Vascular calcifications again noted at the arch. Unchanged blunting of the right more so than left costophrenic angles as well as ill-defined haziness of both lung bases. Suture material at the mid to upper right lung. Cervical spine hardware. Osteopenia. Deformity of the distal right clavicle is again demonstrated. Impression: No significant interval change in the radiographic appearance of the chest with chronic findings as detailed above. No acute abnormality. Electronically signed by: SUNDAR CRUMP MD (03/27/2019 5:50 PM) [facility]
== END | disposition home or self-care (01) ==
LOC: RAD 11:05
PROVIDERS: ATTEND Internal Medicine Pulmonary Disease
DX: Z01.818 Encounter for other preprocedural examination (principal); M85.88 Other specified disorders of bone density and structure, other site; M95.8 Other specified acquired deformities of musculoskeletal system
CPT/HCPCS: 71046

== ENCOUNTER → 2019-04-05 | Outpatient (CLI) | payer MEDICARE ==
[~2019-04-05] MED LIST changes: -CEFD300C PO; -DOXY100T PO
--- NOTE | 2019-04-06 14:48 | RESP ---
DATE OF SERVICE: 04/05/2019 ATTENDING PHYSICIAN: Kristian Zhu MD The patient underwent full pulmonary function testing on 04/05/2019. The FEV1 to FVC ratio was 71%, FEV1 was 1.43 liters, 82% of predicted. FVC was 2.01 liters, 86% of predicted. Total lung capacity was 153% of predicted. Diffusion capacity was preserved. IMPRESSION: 1. Mild airflow limitation. 2. Significant airway trapping. JIM KING MD DR: JACOB/chato JOB#: [id number] / [id number]
== END | disposition home or self-care (01) ==
LOC: PF 10:04
PROVIDERS: ATTEND Family Medicine
DX: J44.9 Chronic obstructive pulmonary disease, unspecified (principal); R06.02 Shortness of breath
CPT/HCPCS: 94010; 94729

== ENCOUNTER → 2019-04-05 | Outpatient (CLI) | payer MEDICARE ==
--- NOTE | 2019-04-05 17:36 | RAD ---
Chest CT without contrast Clinical indications: Lung nodule follow-up. COMPARISON: September 19, 2018. TECHNIQUE: Noncontrast helical CT scanning of the chest was performed. Without IV contrast, the sensitivity to detect organ pathology is decreased. PQRS compliance Statement One or more of the following individualized dose reduction techniques were utilized for this study: 1. Automated exposure control 2. Adjustment of the mA and/or kV according to patient size 3. Use of iterative reconstruction technique FINDINGS: Mediastinal lymph nodes are again seen and are unchanged. No new mediastinal lymphadenopathy or axillary lymphadenopathy is evident. Evaluation of the afua for lymphadenopathy is difficult without IV contrast. Calcified atheromatous disease of the thoracic aorta is seen. No focal aneurysmal dilatation is evident. Calcified atheromatous disease of the coronary arteries is seen. The heart size is normal and no pericardial effusion is evident. Previously seen groundglass lung infiltrates have significantly improved. There is mild residual groundglass lung infiltrate within the posterior aspect of both lower lobes. There is a lung nodule within the posterior aspect of the lingula seen on series 8 and image 175 measuring 5 mm. This is stable. No new lung nodules are evident. There is chronic scarring bilaterally. There is chronic interstitial thickening within the periphery consistent with pulmonary fibrosis. Bilateral peribronchial thickening and mild bronchiectasis is seen. Proximal bronchial tree is patent otherwise. No pleural effusion or pneumothorax is seen. Old healed lateral right rib cage fractures are seen. There is a moderate compression fracture of L1 which is unchanged. No lytic process is seen. No adrenal mass is seen. IMPRESSION: Significant improvement in bilateral groundglass lung infiltrates since the prior study. Residual groundglass lung infiltrates are present within both lower lobes and may represent residual distal airway inflammatory or infectious disease. No new lung consolidation is evident elsewhere. Bilateral bronchitis and bronchiectasis. Mild bilateral pulmonary fibrosis. Stable lingular lung nodule. This may be followed in 12 months as per Fleischner guidelines. Stable mediastinal lymph nodes. Calcified atheromatous disease of the coronary arteries. Electronically signed by: Ricci Hooper MD (04/05/2019 5:33 PM) [facility]
== END ==
LOC: CT 10:33
PROVIDERS: ATTEND Internal Medicine Pulmonary Disease
DX: J47.9 Bronchiectasis, uncomplicated (principal); J40 Bronchitis, not specified as acute or chronic; J84.10 Pulmonary fibrosis, unspecified; I25.10 Atherosclerotic heart disease of native coronary artery without angina pectoris; R91.8 Other nonspecific abnormal finding of lung field; M48.56XD Collapsed vertebra, not elsewhere classified, lumbar region, subsequent encounter for fracture with routine healing; F17.200 Nicotine dependence, unspecified, uncomplicated; I13.10 Hypertensive heart and chronic kidney disease without heart failure, with stage 1 through stage 4 chronic kidney disease, or unspecified chronic kidney disease; N18.3 Chronic kidney disease, stage 3 (moderate)
CPT/HCPCS: 71250

== ENCOUNTER 2019-04-10 11:00 | Inpatient (IN) | payer MEDICARE ==
[~2019-04-10] VITALS: Ht 152.4 cm; Wt 86.2 kg
[~2019-04-10 11:00] MED LIST changes: -DILT180C29 PO; -DULO60CA6 PO; -FURO-68 PO; -HYDR25TA PO; -IPRA0.2S5 NEB; -KRIL1CAP23 PO; -ROFL250T PO; -VENTOLIN HFA18 GM INH
[2019-04-10] MEDS ORDERED: HYDR25TA PO (16:49)
[2019-04-10] MEDS ORDERED: DILT180C29 PO (16:49)
[2019-04-10] MEDS ORDERED: IPRA0.2S5 NEB (16:49)
[2019-04-10] MEDS ORDERED: ROFL250T PO (16:49)
[2019-04-10] MEDS ORDERED: VENTOLIN HFA18 GM INH (16:49)
[2019-04-10] MEDS ORDERED: KRIL1CAP23 PO (16:49)
[2019-04-10] MEDS ORDERED: FURO-68 PO (16:49)
[2019-04-10] MEDS ORDERED: DULO60CA6 PO (16:49)
[2019-04-10 16:51] LABS: BASO # 0.1 x10^3/uL (0.0-0.2); BASO % 1 % (0-3); EOS # 0.3 x10^3/uL (0.0-0.7); EOS % 4 % (0-3); HEMATOCRIT 35.2 % (36.0-47.0); HEMOGLOBIN 11.5 g/dL (12.0-15.5); LYMPH # 1.9 x10^3/uL (1.0-4.8); LYMPH % 22 % (24-48); MEAN CORPUSCULAR HEMOGLOBIN 26 pg (25-35); MEAN CORPUSCULAR HGB CONC 33 g/dL (31-37); MEAN CORPUSCULAR VOLUME 80 fL (79-100); MONO # 0.9 x10^3/uL (0.0-1.1); MONO % 10 % (0-9); NEUT # 5.4 x10^3/uL (1.8-7.7); NEUT % 63 % (31-73); PLATELET COUNT 312 x10^3/uL (140-400); RED BLOOD COUNT 4.38 x10^6/uL (3.50-5.40); RED CELL DISTRIBUTION WIDTH 18.3 % (11.5-14.5); WHITE BLOOD COUNT 8.7 x10^3/uL (4.0-11.0)
[2019-04-10 16:55] VITALS: BP 148/60
[2019-04-10 17:11] LABS: ALBUMIN 3.4 g/dL (3.4-5.0); ALBUMIN/GLOBULIN RATIO 0.8 (1.0-1.7); CALCIUM 8.8 mg/dL (8.5-10.1); GFR 54.1; POTASSIUM 4.1 mmol/L (3.5-5.1); TOTAL BILIRUBIN 0.5 mg/dL (0.2-1.0); TOTAL PROTEIN 7.7 g/dL (6.4-8.2)
[2019-04-10] MEDS ORDERED: HYDROcodone/APAP 10/325 1 TAB TABLET PO PRN (17:15)
[2019-04-10] MEDS ORDERED: CYCLOBENZAPRINE 10 MG TABLET. PO PRN (17:30)
[2019-04-10] MEDS: HYDROcodone/APAP 10/325 1 TAB TABLET PO PRN ×2 (18:12→22:22)
[2019-04-10] MEDS ORDERED: C.DIFF MED SCREEN BY RX. MC ONE (18:45)
[2019-04-10 19:00] VITALS: BP 156/87
[2019-04-10] MEDS: IPRATROPIUM BROMIDE 0.5 MG/2.5 ML NEBU. NEB SCH (19:31)
[2019-04-10] MEDS: BUDESONIDE 0.5 MG/2 ML NEBU. NEB SCH (19:31)
--- NOTE | 2019-04-10 20:26 | HP ---
ADMIT DATE: 04/10/2019 CHIEF COMPLAINT AND HISTORY OF PRESENT ILLNESS: This is a 73-year-old white female who is well known to me from followup in the office. We have been treating the patient for cellulitis of both lower extremities for over a 10-day period of time, started initially with Keflex changing to doxycycline with no improvement and eventually at this point is admitted for IV antibiotics and ID consultation. PAST MEDICAL HISTORY: Remarkable for severe spinal stenosis with marked limited ability to walk as well as ____ and pain with surgery planned once we can get all of this straightened around. She has a history of COPD, lumbar radiculopathy and atrial fibrillation. MEDICATIONS: Meds were brought with the patient, listed on the computer and have been addressed. ALLERGIES: SHE IS ALLERGIC TO TALWIN AND LEVAQUIN. SOCIAL HISTORY: She is a smoker, socially drinks alcohol and does not use drugs. She is single. FAMILY HISTORY: Noncontributory. REVIEW OF SYSTEMS: Remarkable for pain to the lower extremities as well as occasionally some chills and aches that she has had intermittently through this time. She has not run a fever checking it at home. Her shortness of breath is at its baseline. She denies any chest pain with this. PHYSICAL EXAMINATION: GENERAL: She is well-developed, well-nourished white female who is quite uncomfortable. VITAL SIGNS: Stable. She is afebrile. HEAD, EYES, EARS, NOSE AND THROAT: Remarkable for glasses. NECK: Supple, without lymphadenopathy or thyromegaly. CHEST: Reveals diffuse wheezing bilaterally with decent air movement. HEART: Regular rate and rhythm at the time of my examination. ABDOMEN: Soft, nontender, without hepatosplenomegaly or masses. EXTREMITIES: Reveal 3+ edema from the shins down with redness, warmth of the lower extremities. No overt drainage is present. NEUROLOGIC: She is intact. IMPRESSION: 1. Cellulitis of the lower extremities, failed outpatient treatment. 2. Chronic obstructive pulmonary disease. 3. Severe spinal stenosis. 4. History of atrial fibrillation. PLAN: The patient has been admitted. Labs will be checked. Home meds will be continued and I asked ID for suggestions on antibiotics and the patient will be monitored, managed and treated appropriately. DALIA A. APPL, MD DR: SUNDAR/chato JOB#: [id number] / [id number]
[2019-04-10] MEDS ORDERED: VANCOMYCIN 2 GM in IV NORMAL SALINE 500ML BAG 500 ML IV ONE (21:30)
[2019-04-10] MEDS: GABAPENTIN 300 MG CAPSULE. PO SCH (22:22)
[2019-04-10] MEDS: cloNIDine HCL 0.2 MG TABLET PO SCH (22:24)
[2019-04-10] MEDS: PIPERACILLIN/TAZOBACTAM 3.375 GM in IV NORMAL SALINE 50ML 50 ML IV SCH (22:25)
[2019-04-10 23:00] VITALS: BP 126/40
[2019-04-10] MEDS: ZOLPIDEM 5 MG TABLET. PO PRN (23:19)
[2019-04-11] MEDS: HYDROcodone/APAP 10/325 1 TAB TABLET PO PRN ×5 (02:29→22:18)
[2019-04-11 03:00] VITALS: BP 126/40
[2019-04-11] MEDS: VANCOMYCIN PER PHARMACY MC PRN ×2 (05:25→12:27)
--- NOTE | 2019-04-11 05:25 | NUR ---
Pharmacy Vancomycin Dosing Note S:Consulted to monitor and dose vancomycin started 04/10/19. O:MERY PEÑA is a 73 year old F with Cellulitis . Height: 5 feet, 0 inches Weight: 81.749043 kg Allison Body Weight: 45.50 Adjusted Body Weight: 59.94 Dosing Weight: Actual Other Antibiotics: LABS: Last BUN: 13 Last Creatinine: 1 Creatinine Clearance: 46 mL/min Last WBC: 8.7 Last Procalcitonin: Tmax (past 24 hours): Microbiology: I/O: Drug Levels: Last level: on at Last dose given 04/10/19 at 2300 Vancomycin Dosing: Loading Dose: 2000 mg x1 Dosing Weight: Actual Target Trough: 10-20 A: Based on: WT AND CRCL P: 1. Begin Vancomycin 1250 mg IV q24h 2. Follow up Trough level on 04/12/19 at 2230 3. Pharmacy will continue to monitor, follow and adjust therapy as needed. ETHAN RENO RPH, 04/11/19 0525 Signed: 04/11/19 at 0525 by ETHAN RENO RPH PHA
[2019-04-11] MEDS: LEVOTHYROXINE 137 MCG TABLET PO SCH (06:16)
[2019-04-11] MEDS: PIPERACILLIN/TAZOBACTAM 3.375 GM in IV NORMAL SALINE 50ML 50 ML IV SCH ×3 (06:16→18:13)
[2019-04-11 07:00] VITALS: BP 119/38
[2019-04-11] MEDS ORDERED: PANTOPRAZOLE 40 MG TABLET.DR. PO SCH (07:30)
[2019-04-11] MEDS: BUDESONIDE 0.5 MG/2 ML NEBU. NEB SCH ×2 (07:38→19:54)
[2019-04-11] MEDS: IPRATROPIUM BROMIDE 0.5 MG/2.5 ML NEBU. NEB SCH ×4 (07:38→21:00)
[2019-04-11] MEDS: ALBUTEROL SULFATE 2.5 MG/3 ML NEBU. NEB SCH ×4 (07:44→19:54)
--- NOTE | 2019-04-11 08:04 | PDOC ---
GENERAL General: vss and afebrile. awake and alert. esr 47. chest with bilateral wheezes, heart regular abdomen benign, leg with 3+ edema but much less red and warm this am. continue same. VITAL SIGNS/I&O Vital Signs/I&O: Vital Signs Date Time Temp Pulse Resp B/P (MAP) Pulse Ox O2 Delivery O2 Flow Rate FiO2 04/11/19 07:42 94 Room Air 04/11/19 03:00 97.4 73 18 126/40 (68) 97.4 I & O 04/10/19 04/10/19 04/11/19 15:00 23:00 07:00 Intake Total 240 ml 990 ml Balance 240 ml 990 ml ALLERGIES Allergies: Allergies Coded Allergies Type Severity Reaction Last Updated Verified shellfish derived Allergy Severe Rash 02/21/18 Yes Pentazocine Lactate Allergy Intermediate Rash 02/21/18 Yes iodine Allergy Intermediate 09/21/18 Yes ropinirole Allergy Intermediate 05/11/18 Yes varenicline Allergy Intermediate 05/11/18 Yes tramadol Adverse Reaction Intermediate Nausea and Vomiting 09/21/18 Yes MEDS Medications: Current Medications Medications (Trade) Dose Ordered Sig/Jon Route PRN Reason Start Time Stop Time Status Last Admin Dose Admin Clonidine HCl (Catapres) 0.2 mg BID PO 04/10/19 21:00 04/10/19 22:24 Gabapentin (Neurontin) 300 mg TID PO 04/10/19 21:00 04/10/19 22:22 Ipratropium Garrison (Atrovent) 0.5 mg RTQID NEB 04/10/19 20:00 04/11/19 07:38 Levothyroxine Sodium (Synthroid) 137 mcg DAILY06 PO 04/11/19 06:00 04/11/19 06:16 Albuterol Sulfate (Ventolin Neb Soln) 2.5 mg Q4HRS NEB 04/10/19 20:00 04/11/19 07:44 Budesonide (Pulmicort) 0.5 mg RTBID NEB 04/10/19 20:00 04/11/19 07:38 Pantoprazole Sodium (Protonix) 40 mg DAILYAC PO 04/11/19 07:30 04/11/19 07:34 Zolpidem Tartrate (Ambien) 5 mg PRN QHS PRN PO INSOMNIA 04/10/19 17:30 04/10/19 23:19 Acetaminophen/ Hydrocodone Bitart (Lortab ) 2 tab PRN Q4HRS PRN PO PAIN 04/10/19 18:00 04/11/19 06:18 Vancomycin HCl (Vanco Per Pharmacy) 1 each PRN DAILY PRN MC SEE COMMENTS 04/10/19 21:00 04/11/19 05:25 Piperacillin Sod/ Tazobactam Sod 3.375 gm/Sodium Chloride 50 ml @ 100 mls/hr Q8HRS IV 04/10/19 22:00 04/11/19 06:16 Vancomycin HCl 2 gm/Sodium Chloride 500 ml @ 250 mls/hr 1X ONCE IV 04/10/19 21:30 04/10/19 23:29 DC 04/10/19 23:20 LAB Lab: Laboratory Tests Test 04/10/19 16:30 White Blood Count 8.7 x10^3/uL (4.0-11.0) Red Blood Count 4.38 x10^6/uL (3.50-5.40) Hemoglobin 11.5 g/dL (12.0-15.5) L Hematocrit 35.2 % (36.0-47.0) L Mean Corpuscular Volume 80 fL (79-100) Mean Corpuscular Hemoglobin 26 pg (25-35) Mean Corpuscular Hemoglobin Concent 33 g/dL (31-37) Red Cell Distribution Width 18.3 % (11.5-14.5) H Platelet Count 312 x10^3/uL (140-400) Neutrophils (%) (Auto) 63 % (31-73) Lymphocytes (%) (Auto) 22 % (24-48) L Monocytes (%) (Auto) 10 % (0-9) H Eosinophils (%) (Auto) 4 % (0-3) H Basophils (%) (Auto) 1 % (0-3) Neutrophils # (Auto) 5.4 x10^3/uL (1.8-7.7) Lymphocytes # (Auto) 1.9 x10^3/uL (1.0-4.8) Monocytes # (Auto) 0.9 x10^3/uL (0.0-1.1) Eosinophils # (Auto) 0.3 x10^3/uL (0.0-0.7) Basophils # (Auto) 0.1 x10^3/uL (0.0-0.2) Erythrocyte Sedimentation Rate 47 (0-25) H Sodium Level 137 mmol/L (136-145) Potassium Level 4.1 mmol/L (3.5-5.1) Chloride Level 97 mmol/L (98-107) L Carbon Dioxide Level 32 mmol/L (21-32) Anion Gap 8 (6-14) Blood Urea Nitrogen 13 mg/dL (7-20) Creatinine 1.0 mg/dL (0.6-1.0) Estimated GFR (Cockcroft-Gault) 54.1 BUN/Creatinine Ratio 13 (6-20) Glucose Level 98 mg/dL (70-99) Calcium Level 8.8 mg/dL (8.5-10.1) Total Bilirubin 0.5 mg/dL (0.2-1.0) Aspartate Amino Transferase (AST) 26 U/L (15-37) Alanine Aminotransferase (ALT) 26 U/L (14-59) Alkaline Phosphatase 76 U/L (46-116) Total Protein 7.7 g/dL (6.4-8.2) Albumin 3.4 g/dL (3.4-5.0) Albumin/Globulin Ratio 0.8 (1.0-1.7) L Laboratory Tests 04/10/19 16:30 Laboratory Tests 04/10/19 16:30 DALIA OJEDA MD Apr 11, 2019 08:04
[2019-04-11] MEDS ORDERED: NON FORMULARY ITEM (Lutein 40 MG) PO SCH (09:00)
[2019-04-11] MEDS ORDERED: [UNRECOGNIZED DRUG - OTHER] PO SCH (09:00)
[2019-04-11] MEDS ORDERED: AST PO SCH (09:00)
[2019-04-11] MEDS ORDERED: KRILL PO SCH (09:00)
[2019-04-11] MEDS: cloNIDine HCL 0.2 MG TABLET PO SCH ×2 (09:00→22:19)
[2019-04-11] MEDS ORDERED: EPA PO SCH (09:00)
[2019-04-11] MEDS: LOSARTAN POTASSIUM 50 MG TABLET. PO SCH (09:00)
[2019-04-11] MEDS ORDERED: PHOSPHO PO SCH (09:00)
[2019-04-11] MEDS ORDERED: DHA PO SCH (09:00)
[2019-04-11] MEDS: GABAPENTIN 300 MG CAPSULE. PO SCH ×3 (09:21→22:18)
[2019-04-11] MEDS: POTASSIUM CHLORIDE 10 MEQ TABLET.ER. PO SCH (09:21)
[2019-04-11] MEDS: FUROSEMIDE 40 MG TABLET. PO SCH (09:22)
[2019-04-11] MEDS: ASPIRIN CHEWABLE 81 MG TABLET. PO SCH (09:22)
[2019-04-11] MEDS: DULoxetine HCL 30 MG CAPSULE.DR PO SCH (09:23)
[2019-04-11] MEDS: ROFLUMILAST 500 MCG TABLET. PO SCH (09:23)
[2019-04-11 11:00] VITALS: BP 118/52
--- NOTE | 2019-04-11 11:31 | NUR ---
SW following for discharge planning. Chart reviewed, discussed with RN, pt is from home, RN advised no SW needs at this time. SW will continue to follow for any discharge planning needs.
[2019-04-11] MEDS: NICOTINE 21MG PATCH. TD SCH (12:19)
--- NOTE | 2019-04-11 12:54 | PDOC ---
Infectious Disease Note Vital Sign Vital Signs Vital Signs Date Time Temp Pulse Resp B/P (MAP) Pulse Ox O2 Delivery O2 Flow Rate FiO2 04/11/19 12:18 20 93 Room Air 04/11/19 11:00 68 118/52 (74) 04/11/19 07:00 98.6 98.6 Labs Lab Laboratory Tests Test 04/10/19 16:30 White Blood Count 8.7 x10^3/uL (4.0-11.0) Red Blood Count 4.38 x10^6/uL (3.50-5.40) Hemoglobin 11.5 g/dL (12.0-15.5) Hematocrit 35.2 % (36.0-47.0) Mean Corpuscular Volume 80 fL (79-100) Mean Corpuscular Hemoglobin 26 pg (25-35) Mean Corpuscular Hemoglobin Concent 33 g/dL (31-37) Red Cell Distribution Width 18.3 % (11.5-14.5) Platelet Count 312 x10^3/uL (140-400) Neutrophils (%) (Auto) 63 % (31-73) Lymphocytes (%) (Auto) 22 % (24-48) Monocytes (%) (Auto) 10 % (0-9) Eosinophils (%) (Auto) 4 % (0-3) Basophils (%) (Auto) 1 % (0-3) Neutrophils # (Auto) 5.4 x10^3/uL (1.8-7.7) Lymphocytes # (Auto) 1.9 x10^3/uL (1.0-4.8) Monocytes # (Auto) 0.9 x10^3/uL (0.0-1.1) Eosinophils # (Auto) 0.3 x10^3/uL (0.0-0.7) Basophils # (Auto) 0.1 x10^3/uL (0.0-0.2) Erythrocyte Sedimentation Rate 47 (0-25) Sodium Level 137 mmol/L (136-145) Potassium Level 4.1 mmol/L (3.5-5.1) Chloride Level 97 mmol/L (98-107) Carbon Dioxide Level 32 mmol/L (21-32) Anion Gap 8 (6-14) Blood Urea Nitrogen 13 mg/dL (7-20) Creatinine 1.0 mg/dL (0.6-1.0) Estimated GFR (Cockcroft-Gault) 54.1 BUN/Creatinine Ratio 13 (6-20) Glucose Level 98 mg/dL (70-99) Calcium Level 8.8 mg/dL (8.5-10.1) Total Bilirubin 0.5 mg/dL (0.2-1.0) Aspartate Amino Transf (AST/SGOT) 26 U/L (15-37) Alanine Aminotransferase (ALT/SGPT) 26 U/L (14-59) Alkaline Phosphatase 76 U/L (46-116) Total Protein 7.7 g/dL (6.4-8.2) Albumin 3.4 g/dL (3.4-5.0) Albumin/Globulin Ratio 0.8 (1.0-1.7) Objective Assessment Bila LE edema B lat LE cellulitits failed Doxy/Keflex Tobacco abuse Tinea H/o Bradycardia and PSVT COPD Plan Plan of Care Cont Vanc and Zosyn Add micafungin for now LE arterial dopplers F/u labs and cults Needs elevation Thank you # [id number] ADDI FRY MD Apr 11, 2019 12:54
[2019-04-11 15:00] VITALS: BP 95/48
[2019-04-11] MEDS: MICAFUNGIN 100 MG in IV DEXTROSE 5% 100ML 100 ML IV SCH (15:19)
--- NOTE | 2019-04-11 17:10 | RAD ---
Bilateral lower extremity arterial ultrasound History: Peripheral artery disease. Tobacco use Findings: Multiple grayscale, color, and duplex spectral analysis sonographic images were acquired of the lower extremity arteries bilaterally. There are no previous similar exams. Velocities in cm/sec: RIGHT Common femoral artery 132-triphasic Profunda femoris artery 83-biphasic Proximal SFA 216-monophasic flow Mid SFA 497-triphasic Distal SFA 231 monophasic flow at this level and more distally throughout the right lower extremity Popliteal artery 96 Anterior tibial artery 75 Dorsalis pedis artery 33 Posterior tibial artery 155 Peroneal artery not visualized LEFT: Common femoral artery 256-biphasic flow Profunda femoris artery 96-biphasic flow Proximal SFA 201-monophasic flow at this level and throughout distally Mid SFA 212 Distal SFA 188 Popliteal artery 104 Anterior tibial artery 107 Dorsalis pedis artery 78 Posterior tibial artery 113 Peroneal artery not visualized Incidental note is made of a left popliteal cyst measuring 4.3 cm x 3.37 x 2.2 cm. Impression: Hemodynamic significant stenosis involving the proximal superficial femoral artery is strongly suspected with elevated flow velocities. Hemodynamically significant stenosis involving the left arterial vasculature proximal to the common femoral artery is of concern. Left-sided popliteal cyst. Electronically signed by: Med Radford MD (04/11/2019 5:07 PM) [facility]
--- NOTE | 2019-04-11 17:34 | CONS ---
DATE OF CONSULTATION: 04/11/2019 LOCATION: The patient's room is 565. REQUESTING PHYSICIAN: Dr. Zhu. REASON FOR CONSULTATION: Cellulitis. HISTORY OF PRESENT ILLNESS: The patient is a 73-year-old female with history of COPD, history of atrial fibrillation, bradycardia, PSVT, COPD and spinal stenosis for which she takes narcotics and has issues with constipation. She has been having difficulty with her lymphedema of her lower extremities and cellulitis for over 10 days. She has initially treated with cephalexin and doxycycline. However, she continued to have some redness and discomfort. Subsequently, she was admitted to the hospital and placed on vancomycin and Zosyn. Currently, she is sitting upright in the side of bed. She denied any fever, chills, or sweats, but she did have some fatigue. She has no sinus issues, sore throat. Occasional cough. No nausea. She does occasionally have some vomiting, but also has a history of constipation with her chronic medications that she takes for chronic back pain. She has no dysuria, frequency, or urgency. She does have occasional hesitation or retention she states. Denies any falls or trauma. PAST MEDICAL HISTORY: Positive for spinal stenosis, COPD, lumbar radiculopathy, atrial fibrillation, bradycardia, PSVT eosinophilic fibrotic lung disease, venous insufficiency, osteoarthritis, hypothyroidism, anxiety, depression, gastroesophageal reflux disease, history of cancer. PAST SURGICAL HISTORY: Positive for cataract removal, tonsillectomy, lumbar fusion, carpal tunnel repair, right ____ parathyroidectomy and cervical fusion. REVIEW OF SYSTEMS: Otherwise negative. SOCIAL HISTORY: She has a history of tobacco abuse. She has 3 cats at home. Denies any trauma. She is single. Occasional alcohol. ALLERGIES: LISTED TALWIN AND LEVAQUIN. FAMILY HISTORY: Noncontributory. CURRENT MEDICATIONS: Include Zosyn, vancomycin, albuterol, aspirin, Pulmicort, Catapres, Flexeril, Cardizem, Cymbalta, Pepcid, Lasix, Neurontin, hydrocodone, lactobacillus, Synthroid, nicotine patch, Protonix, ____. PHYSICAL EXAMINATION: VITAL SIGNS: She is afebrile, temperature 96, pulse 68, respirations 20, blood pressure 118/52, satting 93% on room air. CONSTITUTIONAL: She is pleasant. She is cooperative. She is in no acute distress. She is sitting upright on the side of bed. HEENT: Pupils status post cataract surgery. She has normal conjunctivae. Oral cavity, pharynx is clear. She has dentures. NECK: Supple, no JVD. LUNGS: Decreased in the bases, no wheeze. HEART: S1, S2. ABDOMEN: Soft, nontender, no guarding, but decreased bowel sounds present. EXTREMITIES: No clubbing, cyanosis. She has 1-2+ lower extremity edema, mild erythema. There is no significant warmth. There is no gross pain. She does have some tinea and also has decreased pulses. SKIN: Otherwise, warm to touch. NEUROLOGIC: She is nonfocal. PSYCHIATRIC: Affect is appropriate. LABORATORY DATA: White count 8.7, hemoglobin 11.5, platelets of 312, neutrophils 63, lymphs are 22, sed rate was 47, creatinine of 1. Normal liver function study tests. Glucose was 98. There are no cultures. IMPRESSION: 1. Bilateral lower extremity edema. 2. Bilateral lower extremity cellulitis, failed Bactrim and Keflex. 3. Tobacco abuse. 4. Tinea. 5. Bradycardia with history of paroxysmal supraventricular tachycardia. 6. Chronic obstructive pulmonary disease. RECOMMENDATIONS: For now, continue vancomycin and Zosyn. We will add micafungin, obtain lower extremity arterial Dopplers. Follow up labs and cultures, needs elevation. Thank you for allowing me to participate in the patient's care. If you have any questions, please do not hesitate to contact me. ADDI FRY MD DR: SCOTTIE/chato JOB#: [id number] / [id number] [place]
[2019-04-11 19:00] VITALS: BP 126/87
--- NOTE | 2019-04-11 19:22 | NUR ---
DISCHARGE INSTRUCTIONS GIVEN TO PATIENT AND AT THE BEDSIDE, QUESTIONS AND CONCERNS ANSWERED, SALINE LOCK REMOVED PER BUTCHER'S ASSISTANT, ALL PERSONAL BELONGINGS GATHERED BY THE PATIENT AND SPOUSE AND PLACED IN BAGS FOR DISCHARGE. PATIENT ENCOURAGED TO FOLLOW UP WITH HIS PRIMARY PROVIDER ON 04/16/19, PATIENT AGREED. Addendum: 04/12/19 at 1625 by ALISSA RIOS RN PLEASE DISREGARD THE PREVIOUS NOTE IT WAS ENTERED ON THE WRONG PATIENT.
--- NOTE | 2019-04-11 19:48 | NUR ---
PATIENT LEAVES THE UNIT PER W/C AND ALONGSIDE THIS UNDERCOVER OPERATOR AND HIS SPOUSE, EMOTIONAL SUPPORT GIVEN. Addendum: 04/12/19 at 1627 by ALISSA RIOS RN PLEASE DISREGARD THE PREVIOUS NOTE BY THIS UNDERCOVER OPERATOR IT WAS ENTERED ON THE WRONG PATIENT.
[2019-04-11] MEDS: LACTOBACILLUS RHAMNOSUS GG 1 CAPSULE. PO SCH (22:18)
[2019-04-11] MEDS: ZOLPIDEM 5 MG TABLET. PO PRN (22:19)
[2019-04-11] MEDS: hydrOXYzine 25 MG TABLET PO PRN (22:19)
[2019-04-11] MEDS: VANCOMYCIN 1.25 GM in IV NORMAL SALINE 250ML 250 ML IV SCH (22:22)
[2019-04-11 23:00] VITALS: BP 125/106
[2019-04-12] VITALS (7 sets, daily range): BP systolic 85–136; BP diastolic 25–88
[2019-04-12] MEDS: PIPERACILLIN/TAZOBACTAM 3.375 GM in IV NORMAL SALINE 50ML 50 ML IV SCH ×4 (01:02→17:19)
[2019-04-12] MEDS: HYDROcodone/APAP 10/325 1 TAB TABLET PO PRN ×5 (03:53→21:10)
[2019-04-12] MEDS: ALBUTEROL SULFATE 2.5 MG/3 ML NEBU. NEB SCH ×2 (04:00)
[2019-04-12] MEDS: LEVOTHYROXINE 137 MCG TABLET PO SCH (07:35)
[2019-04-12] MEDS: LOSARTAN POTASSIUM 50 MG TABLET. PO SCH (08:41)
[2019-04-12] MEDS: NICOTINE 21MG PATCH. TD SCH (08:46)
[2019-04-12] MEDS: DULoxetine HCL 30 MG CAPSULE.DR PO SCH (08:47)
[2019-04-12] MEDS: ROFLUMILAST 500 MCG TABLET. PO SCH (08:47)
[2019-04-12] MEDS: POTASSIUM CHLORIDE 10 MEQ TABLET.ER. PO SCH (08:47)
[2019-04-12] MEDS: FAMOTIDINE 20 MG TABLET. PO SCH (08:48)
--- NOTE | 2019-04-12 08:49 | PDOC ---
GENERAL General: vss and afebrile. awake and alert. chest with ongoing wheezes which is her base line. heart regular, abdomen benign, legs stable. PAD on dopplers. tricky situation as patient completely limited by spinal stenosis and need this fixed and if intervention on arterial system needed would put this off. continue current antimicrobials. VITAL SIGNS/I&O Vital Signs/I&O: Vital Signs Date Time Temp Pulse Resp B/P (MAP) Pulse Ox O2 Delivery O2 Flow Rate FiO2 04/12/19 08:41 70 124/88 04/12/19 07:00 98.0 16 97 Room Air 98.0 I & O 04/11/19 04/11/19 04/12/19 15:00 23:00 07:00 Intake Total 50 ml 300 ml Output Total 0 ml Balance 50 ml 300 ml ALLERGIES Allergies: Allergies Coded Allergies Type Severity Reaction Last Updated Verified shellfish derived Allergy Severe Rash 02/21/18 Yes Pentazocine Lactate Allergy Intermediate Rash 02/21/18 Yes iodine Allergy Intermediate 09/21/18 Yes ropinirole Allergy Intermediate 05/11/18 Yes varenicline Allergy Intermediate 05/11/18 Yes tramadol Adverse Reaction Intermediate Nausea and Vomiting 09/21/18 Yes MEDS Medications: Current Medications Medications (Trade) Dose Ordered Sig/Jon Route PRN Reason Start Time Stop Time Status Last Admin Dose Admin Aspirin (Children'S Aspirin) 81 mg DAILY PO 04/11/19 09:00 04/11/19 09:22 Diltiazem HCl (Cardizem 24hr Cd) 180 mg DAILY PO 04/11/19 09:00 04/11/19 09:22 Furosemide (Lasix) 40 mg DAILY PO 04/11/19 09:00 04/11/19 09:22 Potassium Chloride (Klor-Con) 10 meq DAILY PO 04/11/19 09:00 04/11/19 09:21 Duloxetine HCl (Cymbalta) 60 mg DAILY PO 04/11/19 09:00 04/11/19 09:23 Roflumilast (Daliresp) 250 mcg DAILY PO 04/11/19 09:00 04/11/19 09:23 Vancomycin HCl 1.25 gm/Sodium Chloride 250 ml @ 167 mls/hr Q24H IV 04/11/19 23:00 04/11/19 22:22 Nicotine (Nicoderm Cq 21mg) 1 patch DAILY TD 12/11/19 11:00 04/11/19 12:19 Piperacillin Sod/ Tazobactam Sod 3.375 gm/Sodium Chloride 50 ml @ 100 mls/hr Q6HRS IV 04/11/19 13:00 04/12/19 01:02 Lactobacillus Rhamnosus (Culturelle) 1 cap BID PO 04/11/19 21:00 04/11/19 22:18 Micafungin Sodium 100 mg/Dextrose 100 ml @ 100 mls/hr Q24H IV 04/11/19 13:00 04/11/19 15:19 DALIA OJEDA MD Apr 12, 2019 08:49
[2019-04-12] MEDS: IPRATROPIUM BROMIDE 0.5 MG/2.5 ML NEBU. NEB SCH ×4 (09:18→19:41)
[2019-04-12] MEDS: BUDESONIDE 0.5 MG/2 ML NEBU. NEB SCH ×2 (09:18→19:42)
--- NOTE | 2019-04-12 10:18 | PDOC ---
Infectious Disease Note Subjective Subjective Legs about the same No F/C/s/N/V/D/rash Does have some yeast ROS ROS o/w neg Vital Sign Vital Signs Vital Signs Date Time Temp Pulse Resp B/P (MAP) Pulse Ox O2 Delivery O2 Flow Rate FiO2 04/12/19 09:20 95 Room Air 04/12/19 08:48 70 124/88 04/12/19 07:00 98.0 16 98.0 Physical Exam PHYSICAL EXAM CONSTITUTIONAL: She is pleasant. She is cooperative. She is in no acute distress. She is sitting upright in chair HEENT: Pupils status post cataract surgery. She has normal conjunctivae. Oral cavity, pharynx is clear. She has dentures. NECK: Supple, no JVD. LUNGS: Decreased in the bases, no wheeze. HEART: S1, S2. ABDOMEN: Soft, nontender, no guarding, but decreased bowel sounds present. EXTREMITIES: No clubbing, cyanosis. She has 1-2+ lower extremity edema, mild erythema. There is no significant warmth. There is no gross pain. She does have some tinea and also has decreased pulses. SKIN: Otherwise, warm to touch. NEUROLOGIC: She is nonfocal. PSYCHIATRIC: Affect is appropriate. Labs Micro Impression: Hemodynamic significant stenosis involving the proximal superficial femoral artery is strongly suspected with elevated flow velocities. Hemodynamically significant stenosis involving the left arterial vasculature proximal to the common femoral artery is of concern. Left-sided popliteal cyst. Objective Assessment Bila LE edema B lat LE cellulitits failed Doxy/Keflex PAD Tobacco abuse Tinea H/o Bradycardia and PSVT COPD Plan Plan of Care Consult Vascular Cont Vanc and Zosyn/ micafungin for now F/u labs and cults Needs elevation ADDI FRY MD Apr 12, 2019 10:18
[2019-04-12] MEDS: ASPIRIN CHEWABLE 81 MG TABLET. PO SCH (10:41)
[2019-04-12] MEDS: cloNIDine HCL 0.2 MG TABLET PO SCH ×2 (10:41→21:08)
[2019-04-12] MEDS: LACTOBACILLUS RHAMNOSUS GG 1 CAPSULE. PO SCH ×2 (10:41→21:06)
[2019-04-12] MEDS: FUROSEMIDE 40 MG TABLET. PO SCH (10:42)
[2019-04-12] MEDS: GABAPENTIN 300 MG CAPSULE. PO SCH ×3 (10:43→21:06)
[2019-04-12] MEDS: MICAFUNGIN 100 MG in IV DEXTROSE 5% 100ML 100 ML IV SCH (12:32)
[2019-04-12] MEDS: VANCOMYCIN PER PHARMACY MC PRN (14:13)
--- NOTE | 2019-04-12 15:41 | PDOC2 ---
CONSULT Date of Consult Date of Consult DATE: 04/12/19 TIME: 15:25 Reason for Consult Reason for Consult: Bilateral lower extremity cellulitis Referring Physician Referring Physician: Dr. Mitchell Identification/Chief Complaint Chief Complaint Bilateral lower extremity cellulitis Source Source: Chart review, Patient History of Present Illness Reason for Visit: This is a 73 year old female with bilateral lower extremity cellulitis for two weeks. The patient reports no past history of cellulitis. She denies any lower extremity lesions. She does complain of right lower extremity pain. She has a history of low back pain and peripheral neuropathy. She has a history of venous insufficiency with some kind of venous injections. Past Medical History Cardiovascular: HTN, Hyperlipidemia, Other Pulmonary: COPD, Other CENTRAL NERVOUS SYSTEM: Other GI: GERD Heme/Onc: No pertinent hx, Cancer Hepatobiliary: No pertinent hx Psych: Anxiety, Depression Musculoskeletal: low back pain, Osteoarthritis Rheumatologic: No pertinent hx Infectious disease: No pertinent hx Renal/: No pertinent hx Endocrine: Hypothyroidism Past Surgical History Past Surgical History: Cataract Removal, Tonsillectomy, Other Family History Family History non-contributory to current problem Social History No ALCOHOL: other Drugs: None Lives: with Family Current Medications Current Medications Current Medications Aspirin (Children'S Aspirin) 81 mg DAILY PO Last administered on 04/12/19at 10:41; Start 04/11/19 at 09:00 Clonidine HCl (Catapres) 0.2 mg BID PO Last administered on 04/12/19at 10:41; Start 04/10/19 at 21:00 Diltiazem HCl (Cardizem 24hr Cd) 180 mg DAILY PO Last administered on 04/12/19at 08:48; Start 04/11/19 at 09:00 Furosemide (Lasix) 40 mg DAILY PO Last administered on 04/12/19at 10:42; Start 04/11/19 at 09:00 Gabapentin (Neurontin) 300 mg TID PO Last administered on 04/12/19at 14:35; Start 04/10/19 at 21:00 Acetaminophen/ Hydrocodone Bitart (Lortab 10/325) 1 tab PRN Q4HRS PRN PO PAIN; Start 04/10/19 at 17:15; Stop 04/10/19 at 17:53; Status DC Hydroxyzine HCl (Atarax) 25 mg TID PRN PO ITCHING Last administered on 04/11/19 22:19; Start 04/10/19 at 17:15 Ipratropium [place] (Atrovent) 0.5 mg RTQID NEB Last administered on 04/12/19 13:02; Start 04/10/19 at 20:00 Levothyroxine Sodium (Synthroid) 137 mcg DAILY06 PO Last administered on 04/12/19 07:35; Start 04/11/19 at 06:00 Potassium Chloride (Klor-Con) 10 meq DAILY PO Last administered on 04/12/19 08:47; Start 04/11/19 at 09:00 Albuterol Sulfate (Ventolin Neb Soln) 2.5 mg Q4HRS NEB Last administered on 04/11/19 19:54; Start 04/10/19 at 20:00 Cyclobenzaprine HCl (Flexeril) 5 mg PRN Q8HRS PRN PO MUSCLE SPASMS; Start 04/10/19 at 17:30 Duloxetine HCl (Cymbalta) 60 mg DAILY PO Last administered on 04/12/19 08:47; Start 04/11/19 at 09:00 Budesonide (Pulmicort) 0.5 mg RTBID NEB Last administered on 04/12/19 09:18; Start 04/10/19 at 20:00 Non-Formulary Medication (Krill/Om-3/Dha/ Epa/Phospho/Ast (Megared [place]-3 Krill Oil Sfgl)) 1 cap DAILY PO ; Start 04/11/19 at 09:00; Status UNV Non-Formulary Medication (Lutein ) 40 mg DAILY PO ; Start 04/11/19 at 09:00; Status UNV Losartan Potassium (Cozaar) 100 mg DAILY PO ; Start 04/11/19 at 09:00 Pantoprazole Sodium (Protonix) 40 mg DAILYAC PO Last administered on 04/11/19 07:34; Start 04/11/19 at 07:30; Stop 04/11/19 at 12:29; Status DC Roflumilast (Daliresp) 250 mcg DAILY PO Last administered on 04/12/19 08:47; Start 04/11/19 at 09:00 Zolpidem Tartrate (Ambien) 5 mg PRN QHS PRN PO INSOMNIA Last administered on 12/11/19at 22:19; Start 04/10/19 at 17:30 Acetaminophen/ Hydrocodone Bitart (Lortab ) 2 tab PRN Q4HRS PRN PO PAIN Last administered on 04/12/19at 12:32; Start 04/10/19 at 18:00 Pharmacy Consult (C.diff Med Screen By Rx) 1 each 1X ONCE MC ; Start 04/10/19 at 18:45; Stop 04/10/19 at 18:46; Status Cancel Vancomycin HCl (Vanco Per Pharmacy) 1 each PRN DAILY PRN MC SEE COMMENTS Last administered on 04/12/19 14:13; Start 04/10/19 at 21:00 Piperacillin Sod/ Tazobactam Sod 3.375 gm/Sodium Chloride 50 ml @ 100 mls/hr Q8HRS IV Last administered on 04/11/19at 06:16; Start 04/10/19 at 22:00; Stop 04/11/19 at 12:14; Status DC Vancomycin HCl 2 gm/Sodium Chloride 500 ml @ 250 mls/hr 1X ONCE IV Last administered on 04/10/19at 23:20; Start 04/10/19 at 21:30; Stop 04/10/19 at 23:29; Status DC Vancomycin HCl 1.25 gm/Sodium Chloride 250 ml @ 167 mls/hr Q24H IV Last administered on 04/11/19at 22:22; Start 04/11/19 at 23:00 Vancomycin HCl (Vancomycin Trough Level) 1 each 1X ONCE MC ; Start 04/12/19 at 22:30; Stop 04/12/19 at 22:31 Nicotine (Nicoderm Cq 21mg) 1 patch DAILY TD Last administered on 04/12/19at 08:46; Start 04/11/19 at 11:00 Piperacillin Sod/ Tazobactam Sod 3.375 gm/Sodium Chloride 50 ml @ 100 mls/hr Q6HRS IV Last administered on 04/12/19 11:43; Start 04/11/19 at 13:00 Lactobacillus Rhamnosus (Culturelle) 1 cap BID PO Last administered on 04/12/19 10:41; Start 04/11/19 at 21:00 Famotidine (Pepcid) 20 mg DAILY PO Last administered on 04/12/19at 08:48; Start 04/12/19 at 09:00 Micafungin Sodium 100 mg/Dextrose 100 ml @ 100 mls/hr Q24H IV Last adm inistered on 04/12/19at 12:32; Start 04/11/19 at 13:00 Active Scripts Active Reported Megared [place]-3 Krill Oil Sfgl (Krill/Om-3/Dha/Epa/Phospho/Ast) 1 Each Capsule 1 Cap PO DAILY 30 Days Daliresp (Roflumilast) 250 Mcg Tablet 250 Mcg PO DAILY Hydroxyzine Hcl 25 Mg Tablet 1 Tab PO TID PRN Ventolin Hfa Inhaler (Albuterol Sulfate) 18 Gm Hfa.aer.ad 2 Puff INH Q4HRS Ipratropium [place] 0.2 Mg/1 Ml Solution 1 Vial NEB QID Cymbalta (Duloxetine Hcl) 60 Mg Capsule.dr 1 Cap PO DAILY Diltiazem 24HR Cd (Diltiazem Hcl) 180 Mg Cap.er.24h 1 Cap PO DAILY 30 Days Lasix (Furosemide) 40 Mg Tablet 1 Tab PO DAILY 30 Days Protonix (Pantoprazole Sodium) 20 Mg Tablet.dr 40 Mg PO DAILY Benicar (Olmesartan Medoxomil) 40 Mg Tablet 40 Mg PO DAILY Potassium Chloride (Potassium Chloride) 10 Meq Tab.sr.24h 10 Meq PO DAILY Levothyroxine Sodium 137 Mcg Tablet 137 Mcg PO DAILYAC Gabapentin 300 Mg Capsule 300 Mg PO TID Cyclobenzaprine Hcl 5 Mg Tablet 5 Mg PO PRN TID PRN Clonidine Hcl 0.2 Mg Tablet 1 Tab PO BID Hydrocodone-Apap 10-325 (Hydrocodone Bit/Acetaminophen) 1 Tab Tablet 1 Tab PO PRN Q4HRS PRN Lutein 40 Mg Capsule 40 Mg PO DAILY Aspirin 81 Mg Tab.chew 81 Mg PO DAILY Advair 250-50 Diskus (Fluticasone/Salmeterol) 1 Each Disk.w.dev 1 Puff IH BID Ambien (Zolpidem Tartrate) 10 Mg Tablet 10 Mg PO PRN QHS PRN LAST DOSE GIVEN: DATE:12-24-14 TIME:9:00 p.m. NEXT DOSE DUE: DATE:12-25-14 TIME:9:00 p.m. Allergies Allergies: Coded Allergies: shellfish derived (Verified Allergy, Severe, Rash, 02/21/18) "horrible vomiting" Pentazocine Lactate (Verified Allergy, Intermediate, Rash, 02/21/18) swelling iodine (Verified Allergy, Intermediate, 09/21/18) ropinirole (Verified Allergy, Intermediate, 05/11/18) varenicline (Verified Allergy, Intermediate, 05/11/18) tramadol (Verified Adverse Reaction, Intermediate, Nausea and Vomiting, 09/21/18) ROS Review of System GEN: Denies fevers, chills, sweats HEENT: Denies blurred vision, sore throat CV: Denies chest pain RESP: Denies shortness of air, cough GI: Denies n/v/d NEURO: Denies confusion, dizziness MSK: Denies weakness, joint pain/swelling Physical Exam Physical Exam Gen.: Alert and oriented 3. Cardiac: heart rate regular. Lungs: CTA, nonlabored respirations. Abdomen: Soft, nontender, nondistended, no palpable masses. Extremities: 2+ palpable femoral and radial pulses, doppler DP and PT pulses. Skin: Bilateral lower extremity calf swelling and erythema, no skin lesions. Neurological: Motor intact, mild decrease in sensation. Vitals VITALS Vital Signs Date Time Temp Pulse Resp B/P (MAP) Pulse Ox O2 Delivery O2 Flow Rate FiO2 04/12/19 13:27 Room Air 04/12/19 11:00 97.9 73 16 116/50 (72) 99 97.9 Labs Labs Laboratory Tests Test 04/10/19 16:30 White Blood Count 8.7 x10^3/uL (4.0-11.0) Red Blood Count 4.38 x10^6/uL (3.50-5.40) Hemoglobin 11.5 g/dL (12.0-15.5) Hematocrit 35.2 % (36.0-47.0) Mean Corpuscular Volume 80 fL (79-100) Mean Corpuscular Hemoglobin 26 pg (25-35) Mean Corpuscular Hemoglobin Concent 33 g/dL (31-37) Red Cell Distribution Width 18.3 % (11.5-14.5) Platelet Count 312 x10^3/uL (140-400) Neutrophils (%) (Auto) 63 % (31-73) Lymphocytes (%) (Auto) 22 % (24-48) Monocytes (%) (Auto) 10 % (0-9) Eosinophils (%) (Auto) 4 % (0-3) Basophils (%) (Auto) 1 % (0-3) Neutrophils # (Auto) 5.4 x10^3/uL (1.8-7.7) Lymphocytes # (Auto) 1.9 x10^3/uL (1.0-4.8) Monocytes # (Auto) 0.9 x10^3/uL (0.0-1.1) Eosinophils # (Auto) 0.3 x10^3/uL (0.0-0.7) Basophils # (Auto) 0.1 x10^3/uL (0.0-0.2) Erythrocyte Sedimentation Rate 47 (0-25) Sodium Level 137 mmol/L (136-145) Potassium Level 4.1 mmol/L (3.5-5.1) Chloride Level 97 mmol/L (98-107) Carbon Dioxide Level 32 mmol/L (21-32) Anion Gap 8 (6-14) Blood Urea Nitrogen 13 mg/dL (7-20) Creatinine 1.0 mg/dL (0.6-1.0) Estimated GFR (Cockcroft-Gault) 54.1 BUN/Creatinine Ratio 13 (6-20) Glucose Level 98 mg/dL (70-99) Calcium Level 8.8 mg/dL (8.5-10.1) Total Bilirubin 0.5 mg/dL (0.2-1.0) Aspartate Amino Transf (AST/SGOT) 26 U/L (15-37) Alanine Aminotransferase (ALT/SGPT) 26 U/L (14-59) Alkaline Phosphatase 76 U/L (46-116) Total Protein 7.7 g/dL (6.4-8.2) Albumin 3.4 g/dL (3.4-5.0) Albumin/Globulin Ratio 0.8 (1.0-1.7) Assessment/Plan Assessment/Plan 73 year old female with bilateral lower extremity cellulitis and mild arterial insufficiency. Patient has adequate doppler signal in bilateral dorsalis pedis pulses. Venous insufficiency. Discussed history and examination with Dr. Marino, do not recommend any arterial intervention at this time. Recommend lower extremity compression and elevation. Continue antibiotics per ID. I independently saw patient with Ms Babb I independently reviewed her duplex study I see no evidence of significant occlusive disease she has significant calf edema and cellulitis, no distal wounds in an arterial distribution-- recommend compression and as able elevation Would not recommend angiogram at this point RAFAEL BABB APRN Apr 12, 2019 15:41 EHSAN MARINO MD Apr 12, 2019 16:47
--- NOTE | 2019-04-12 16:34 | NUR ---
SW following. Discussed with RN, pt is from home alone. 2 IV abx. SW will continue to follow for discharge planning needs.
[2019-04-12] MEDS: ZOLPIDEM 5 MG TABLET. PO PRN (21:06)
--- NOTE | 2019-04-12 21:12 | NUR ---
MED ADMINISTRATION NOTE: Patient requested 0.1mg of clonidine instead of 0.2mg d/t her BP dropping overnight last night. See eMAR for additional details.
[2019-04-12 22:40] LABS: VANC TR 10.1 mcg/mL (10.0-20.0)
[2019-04-12] MEDS: VANCOMYCIN 1.25 GM in IV NORMAL SALINE 250ML 250 ML IV SCH (23:17)
[2019-04-13] MEDS: VANCOMYCIN PER PHARMACY MC PRN (00:36)
--- NOTE | 2019-04-13 00:37 | NUR ---
Pharmacy Vancomycin Dosing Note S:Consulted to monitor and dose vancomycin started 04/10/19. O:MERY PEÑA is a 73 year old F with Cellulitis . Height: 5 feet, 0 inches Weight: 81.355196 kg [place] Body Weight: 45.50 Adjusted Body Weight: 59.86 Dosing Weight: Actual Other Antibiotics: ZOSYN 3.375G IV Q6HRS MYCAFUNGIN 100MG IV Q24H LABS: Last BUN: 13 Last Creatinine: 1 Creatinine Clearance: 46 mL/min Last WBC: 8.7 Last Procalcitonin: - Tmax (past 24 hours): 98 Microbiology: NONE I/O: 1230/4 voids Drug Levels: Last Trough level: 10.1 on 04/12/19 at 2210 Last dose given 04/11/19 at 2222 Vancomycin Dosing: Loading Dose: Dosing Weight: Actual Target Trough: 10-20 A: Based on: Trough, Actual Wt and CrCl P: 1. 04/12/19 2300 Continue Vancomycin 1250 mg IV q24h 2. Follow up Trough level in 5 to 7 days as needed 3. Pharmacy will continue to monitor, follow and adjust therapy as needed. LALY PALOMO RPH, 04/13/19 0037 Signed: 04/13/19 at 0038 by LALY PALOMO RPH PHA
[2019-04-13] MEDS: PIPERACILLIN/TAZOBACTAM 3.375 GM in IV NORMAL SALINE 50ML 50 ML IV SCH ×4 (01:23→18:18)
[2019-04-13 03:00] VITALS: BP 122/62
[2019-04-13] MEDS: HYDROcodone/APAP 10/325 1 TAB TABLET PO PRN ×5 (03:12→22:32)
[2019-04-13] MEDS: ALBUTEROL SULFATE 2.5 MG/3 ML NEBU. NEB SCH ×5 (04:00→19:41)
[2019-04-13] MEDS: LEVOTHYROXINE 137 MCG TABLET PO SCH (05:29)
[2019-04-13 06:45] LABS: GFR 54.1
[2019-04-13 07:00] VITALS: BP 129/58
[2019-04-13] MEDS: BUDESONIDE 0.5 MG/2 ML NEBU. NEB SCH ×2 (07:54→19:41)
[2019-04-13] MEDS: IPRATROPIUM BROMIDE 0.5 MG/2.5 ML NEBU. NEB SCH ×4 (07:54→19:41)
--- NOTE | 2019-04-13 08:37 | RAD ---
Examination: DOPPLER CAROTID BILAT History: Bilateral carotid bruit Comparison study: None available. Findings: The common, internal and external carotid arteries were examined by grayscale, color and spectral Doppler ultrasound. There is no evidence of atherosclerotic disease or significant stenosis in the visualized vessels. Flow in both vertebral arteries was antegrade and normal. The following are the velocities and ratios in the carotid arteries on both sides: RIGHT ICA PV: 104cm/sec RIGHT CCA PV: 107cm/sec RIGHT ICA ED: 22cm/sec RIGHT IC/CCPV: 1.3 RIGHT VERTEBRAL: antegrade flow LEFT ICA PV: 40cm/sec LEFT CCA PV: 44cm/sec LEFT ICA ED: 14cm/sec LEFT IC/CCPV: Less than 1 LEFT VERTEBRAL: antegrade flow <50% ICA Stenosis: PSV < 125cm/s (EDV < 40cm/s; SVR < 2.0) 50-69% ICA Stenosis: PSV < 125-229cm/s (EDV 40-99cm/s; SVR 2.0-3.9) >70% ICA Stenosis: PSV > 230cm/s (EDV >100cm/s; SVR >4.0) Small amount of atheromatous plaque bilaterally is seen diffusely. Impression: No hemodynamically significant stenosis identified involving carotid arterial vasculature. PQRS Compliance Statement - Stenosis calculations for CT, MR and conventional angiography are based upon measurement of the distal ICA diameter in accordance with the NASCET methodology. Stenosis calculations for carotid ultrasound studies are derived from validated velocity criteria which are known to correlate with the NASCET methodology. Electronically signed by: Med Radford MD (04/13/2019 8:33 AM) [facility]
[2019-04-13] MEDS: cloNIDine HCL 0.2 MG TABLET PO SCH ×2 (09:00→22:01)
[2019-04-13] MEDS: LOSARTAN POTASSIUM 50 MG TABLET. PO SCH (09:00)
[2019-04-13] MEDS: NICOTINE 21MG PATCH. TD SCH (09:48)
[2019-04-13] MEDS: ROFLUMILAST 500 MCG TABLET. PO SCH (09:52)
[2019-04-13] MEDS: GABAPENTIN 300 MG CAPSULE. PO SCH ×4 (09:52→22:00)
[2019-04-13] MEDS: DULoxetine HCL 30 MG CAPSULE.DR PO SCH (09:53)
[2019-04-13] MEDS: POTASSIUM CHLORIDE 10 MEQ TABLET.ER. PO SCH (09:53)
[2019-04-13] MEDS: FUROSEMIDE 40 MG TABLET. PO SCH (09:54)
[2019-04-13] MEDS: LACTOBACILLUS RHAMNOSUS GG 1 CAPSULE. PO SCH ×2 (09:55→22:00)
[2019-04-13] MEDS: FAMOTIDINE 20 MG TABLET. PO SCH (09:56)
[2019-04-13] MEDS: ASPIRIN CHEWABLE 81 MG TABLET. PO SCH (09:56)
[2019-04-13 11:00] VITALS: BP 130/46
--- NOTE | 2019-04-13 11:40 | PDOC ---
Infectious Disease Note Subjective Subjective Legs are some better No F/C/s/N/V/D/rash Does have some yeast ROS ROS o/w neg Vital Sign Vital Signs Vital Signs Date Time Temp Pulse Resp B/P (MAP) Pulse Ox O2 Delivery O2 Flow Rate FiO2 04/13/19 09:55 79 107/47 04/13/19 09:44 22 Room Air 04/13/19 07:57 96 04/13/19 07:00 97.9 97.9 Physical Exam PHYSICAL EXAM CONSTITUTIONAL: She is pleasant. She is cooperative. She is in no acute distress. She is sitting upright in chair HEENT: Pupils status post cataract surgery. She has normal conjunctivae. Oral cavity, pharynx is clear. She has dentures. NECK: Supple, no JVD. LUNGS: Decreased in the bases, no wheeze. HEART: S1, S2. ABDOMEN: Soft, nontender, no guarding, but decreased bowel sounds present. EXTREMITIES: No clubbing, cyanosis. She has 1-2+ lower extremity edema, mild erythema better. There is no significant warmth. There is no gross pain. She does have some tinea and also has decreased pulses. SKIN: Otherwise, warm to touch. NEUROLOGIC: She is nonfocal. PSYCHIATRIC: Affect is appropriate. Labs Lab Laboratory Tests Test 04/12/19 22:10 04/13/19 04:31 Vancomycin Level Trough 10.1 mcg/mL (10.0-20.0) Vancomycin Last Dose Date Vancomycin Last Dose Time Creatinine 1.0 mg/dL (0.6-1.0) Estimated GFR (Cockcroft-Gault) 54.1 Micro Impression: Hemodynamic significant stenosis involving the proximal superficial femoral artery is strongly suspected with elevated flow velocities. Hemodynamically significant stenosis involving the left arterial vasculature proximal to the common femoral artery is of concern. Left-sided popliteal cyst. Objective Assessment Bila LE edema B lat LE cellulitits failed Doxy/Keflex -better. Does have some dependent rubor also PAD Tobacco abuse Tinea H/o Bradycardia and PSVT COPD Plan Plan of Care Consult Lymphedema Discont Vanc and start Doxy Cont Zosyn/ micafungin for now F/u labs and cults Needs elevation ADDI FRY MD Apr 13, 2019 11:40
--- NOTE | 2019-04-13 13:39 | NUR ---
SW following for discharge planning. Chart reviewed, discussed with RN. Pt currently on zosyn, micafungin and doxy. PT/OT has been ordered. SW will continue to follow for discharge planning needs.
[2019-04-13] MEDS: MICAFUNGIN 100 MG in IV DEXTROSE 5% 100ML 100 ML IV SCH (13:48)
--- NOTE | 2019-04-13 14:08 | NUR ---
Wound care: Patient seen per wound care consult. There are no open wounds at this time. This is a Lymphedema issue. Will speak with RN regarding POC to order OT for lymphedema eval and treat. Call light in reach.
[2019-04-13 15:00] VITALS: BP 118/54
--- NOTE | 2019-04-13 17:21 | PDOC ---
GENERAL General: vss and afebrile. awake and alert and some less leg pain. chest with ongoing wheezes, heart regular, abdomen benign, edema and redness of legs decreased some. carotid dopplers normal and vascular surgery does not feel any significant PAD. continue antibiotics and mobilize. biggest problem is severe lumbar spinal stenosis and will ask Dr. Taylor to say hi while here and get on surgery schedule for same. PFT's done as outpatient would be ok for surgery. VITAL SIGNS/I&O Vital Signs/I&O: Vital Signs Date Time Temp Pulse Resp B/P (MAP) Pulse Ox O2 Delivery O2 Flow Rate FiO2 04/13/19 15:55 16 Room Air 04/13/19 15:33 96 04/13/19 15:00 97.9 73 118/54 (75) 97.9 I & O 04/12/19 04/12/19 04/13/19 14:59 22:59 06:59 Intake Total 180 ml Balance 180 ml ALLERGIES Allergies: Allergies Coded Allergies Type Severity Reaction Last Updated Verified shellfish derived Allergy Severe Rash 02/21/18 Yes Pentazocine Lactate Allergy Intermediate Rash 02/21/18 Yes iodine Allergy Intermediate 09/21/18 Yes ropinirole Allergy Intermediate 05/11/18 Yes varenicline Allergy Intermediate 05/11/18 Yes tramadol Adverse Reaction Intermediate Nausea and Vomiting 09/21/18 Yes MEDS Medications: Current Medications Medications (Trade) Dose Ordered Sig/Jon Route PRN Reason Start Time Stop Time Status Last Admin Dose Admin Vancomycin HCl (Vancomycin Trough Level) 1 each 1X ONCE 04/12/19 22:30 04/12/19 22:31 DC 04/12/19 22:30 LAB Lab: Laboratory Tests Test 04/12/19 22:10 04/13/19 04:31 Vancomycin Level Trough 10.1 mcg/mL (10.0-20.0) Vancomycin Last Dose Date Vancomycin Last Dose Time Creatinine 1.0 mg/dL (0.6-1.0) Estimated GFR (Cockcroft-Gault) 54.1 Laboratory Tests 04/13/19 04:31 DALIA OJEDA MD Apr 13, 2019 17:21
[2019-04-13 19:00] VITALS: BP 136/57
[2019-04-13] MEDS: DOXYCYCLINE HYCLATE 100 MG TABLET PO SCH (22:00)
[2019-04-13] MEDS: ZOLPIDEM 5 MG TABLET. PO PRN (22:32)
[2019-04-13 23:00] VITALS: BP 147/66
[2019-04-14] MEDS: PIPERACILLIN/TAZOBACTAM 3.375 GM in IV NORMAL SALINE 50ML 50 ML IV SCH ×5 (00:03→23:55)
[2019-04-14 03:00] VITALS: BP 112/50
[2019-04-14] MEDS: ALBUTEROL SULFATE 2.5 MG/3 ML NEBU. NEB SCH ×6 (04:00→19:20)
[2019-04-14] MEDS: HYDROcodone/APAP 10/325 1 TAB TABLET PO PRN ×4 (04:04→21:30)
[2019-04-14] MEDS: LEVOTHYROXINE 137 MCG TABLET PO SCH (06:20)
[2019-04-14 07:00] VITALS: BP 125/71
[2019-04-14] MEDS: BUDESONIDE 0.5 MG/2 ML NEBU. NEB SCH ×2 (07:40→19:22)
[2019-04-14] MEDS: IPRATROPIUM BROMIDE 0.5 MG/2.5 ML NEBU. NEB SCH ×4 (07:40→19:21)
[2019-04-14] MEDS: LOSARTAN POTASSIUM 50 MG TABLET. PO SCH (09:00)
[2019-04-14] MEDS: cloNIDine HCL 0.2 MG TABLET PO SCH ×2 (09:00→21:02)
[2019-04-14] MEDS: ASPIRIN CHEWABLE 81 MG TABLET. PO SCH (09:22)
[2019-04-14] MEDS: ROFLUMILAST 500 MCG TABLET. PO SCH (09:22)
[2019-04-14] MEDS: FAMOTIDINE 20 MG TABLET. PO SCH (09:22)
[2019-04-14] MEDS: FUROSEMIDE 40 MG TABLET. PO SCH (09:23)
[2019-04-14] MEDS: GABAPENTIN 300 MG CAPSULE. PO SCH ×3 (09:23→21:02)
[2019-04-14] MEDS: NICOTINE 21MG PATCH. TD SCH (09:26)
[2019-04-14] MEDS: LACTOBACILLUS RHAMNOSUS GG 1 CAPSULE. PO SCH ×2 (10:11→21:02)
[2019-04-14] MEDS: POTASSIUM CHLORIDE 10 MEQ TABLET.ER. PO SCH (10:11)
[2019-04-14] MEDS: DOXYCYCLINE HYCLATE 100 MG TABLET PO SCH ×2 (10:11→21:02)
[2019-04-14] MEDS: DULoxetine HCL 30 MG CAPSULE.DR PO SCH (10:12)
--- NOTE | 2019-04-14 10:22 | PDOC ---
Provider Note Provider Note Can schedule patient for lumbar spine surgery once she is off antibiotics and cellulitis has resolved. Will follow up with her when she is discharged. JOHN URIBE INDEX CLERK Apr 14, 2019 10:21
[2019-04-14 11:00] VITALS: BP 129/54
--- NOTE | 2019-04-14 11:05 | PDOC ---
Provider Note Provider Note no temp, bp ok- labs good , no cults- on doxy/zosyn/micafungin- both legs less red and tender - will continue same BRIANA LAMB MD Apr 14, 2019 11:05
--- NOTE | 2019-04-14 11:34 | PDOC ---
Infectious Disease Note Subjective Subjective Swelling in legs down some Legs painful to touch Denies N/V/D/F/C ROS ROS per HPI Vital Sign Vital Signs Vital Signs Date Time Temp Pulse Resp B/P (MAP) Pulse Ox O2 Delivery O2 Flow Rate FiO2 04/14/19 11:12 96 Room Air 04/14/19 09:22 63 125/71 04/14/19 07:00 97.6 18 97.6 Physical Exam PHYSICAL EXAM GENERAL: Sitting in the chair, alert, reading, legs down HEENT: Oral cavity, pharynx is clear. + dentures. NECK: Supple LUNGS: Decreased in the bases, no wheeze. HEART: S1, S2. ABDOMEN: Soft, nontender EXTREMITIES: No clubbing, cyanosis. 1-2+ lower extremity edema, mild erythema better. + tinea and also has decreased pulses. Tubigrips in place SKIN: Otherwise, warm to touch. NEUROLOGIC: Alert, answers questions appropriately PIV Objective Assessment Bilateral LE edema Bilateral LE cellulitits failed Doxy/Keflex -better. Does have some dependent rubor also PAD Tobacco abuse Tinea H/o Bradycardia and PSVT COPD Levaquin intolerance; Says has taken Augmentin in the past wo problem. Tolerating Zosyn well Plan Plan of Care Consult Lymphedema Doxy, Zosyn and micafungin for now F/u labs and cults Needs elevation Attending Co-Sign The patient was seen and interviewed as well as examined at the bedside. The chart was reviewed. The case was discussed. Agree with the plan of care. LEONARDA PETER APRN Apr 14, 2019 11:34 LORRAINE GAN MD Apr 14, 2019 15:19
[2019-04-14] MEDS: MICAFUNGIN 100 MG in IV DEXTROSE 5% 100ML 100 ML IV SCH (12:49)
[2019-04-14 15:00] VITALS: BP 128/50
[2019-04-14 19:00] VITALS: BP 136/63
[2019-04-14] MEDS: ZOLPIDEM 5 MG TABLET. PO PRN (21:30)
[2019-04-14 23:00] VITALS: BP 103/65
[2019-04-15 03:00] VITALS: BP 102/61
[2019-04-15] MEDS: ALBUTEROL SULFATE 2.5 MG/3 ML NEBU. NEB SCH ×6 (04:00→20:14)
[2019-04-15] MEDS: PIPERACILLIN/TAZOBACTAM 3.375 GM in IV NORMAL SALINE 50ML 50 ML IV SCH ×4 (06:02→23:22)
[2019-04-15] MEDS: LEVOTHYROXINE 137 MCG TABLET PO SCH (06:03)
[2019-04-15] MEDS: HYDROcodone/APAP 10/325 1 TAB TABLET PO PRN ×4 (06:22→18:47)
[2019-04-15 07:59] VITALS: BP 117/56
[2019-04-15] MEDS: cloNIDine HCL 0.2 MG TABLET PO SCH ×2 (08:08→21:09)
[2019-04-15] MEDS: LOSARTAN POTASSIUM 50 MG TABLET. PO SCH (08:08)
[2019-04-15] MEDS: POTASSIUM CHLORIDE 10 MEQ TABLET.ER. PO SCH (08:13)
[2019-04-15] MEDS: ASPIRIN CHEWABLE 81 MG TABLET. PO SCH (08:14)
[2019-04-15] MEDS: GABAPENTIN 300 MG CAPSULE. PO SCH ×3 (08:14→21:09)
[2019-04-15] MEDS: FAMOTIDINE 20 MG TABLET. PO SCH (08:14)
[2019-04-15] MEDS: ROFLUMILAST 500 MCG TABLET. PO SCH (08:14)
[2019-04-15] MEDS: NICOTINE 21MG PATCH. TD SCH (08:31)
[2019-04-15] MEDS: IPRATROPIUM BROMIDE 0.5 MG/2.5 ML NEBU. NEB SCH ×4 (08:33→20:14)
[2019-04-15] MEDS: BUDESONIDE 0.5 MG/2 ML NEBU. NEB SCH ×2 (08:33→20:14)
[2019-04-15] MEDS: LACTOBACILLUS RHAMNOSUS GG 1 CAPSULE. PO SCH ×2 (09:56→21:09)
[2019-04-15] MEDS: DULoxetine HCL 30 MG CAPSULE.DR PO SCH (09:56)
[2019-04-15] MEDS: DOXYCYCLINE HYCLATE 100 MG TABLET PO SCH ×2 (09:56→21:09)
[2019-04-15] MEDS: FUROSEMIDE 40 MG TABLET. PO SCH (09:56)
[2019-04-15 11:59] VITALS: BP 138/59
--- NOTE | 2019-04-15 12:12 | PDOC ---
Infectious Disease Note Subjective Subjective Legs feel better Less pain and swelling Vital Sign Vital Signs Vital Signs Date Time Temp Pulse Resp B/P (MAP) Pulse Ox O2 Delivery O2 Flow Rate FiO2 04/15/19 11:47 Room Air 04/15/19 08:36 96 04/15/19 08:13 71 117/56 04/15/19 07:59 97.4 18 97.4 Physical Exam PHYSICAL EXAM GENERAL: Sitting in the chair, alert, eating, legs down HEENT: Oral cavity, pharynx is clear. + dentures. NECK: Supple LUNGS: Decreased in the bases, no wheeze. HEART: S1, S2. ABDOMEN: Soft, nontender EXTREMITIES: No clubbing, cyanosis. 1-2+ lower extremity edema, mild erythema better. + tinea and also has decreased pulses. Tubigrips in place, less swelling SKIN: Otherwise, warm to touch. NEUROLOGIC: Alert, answers questions appropriately PIV Objective Assessment Bilateral LE edema Bilateral LE cellulitits failed Doxy/Keflex -better. Does have some dependent rubor also PAD Tobacco abuse Tinea H/o Bradycardia and PSVT COPD Levaquin intolerance; Says has taken Augmentin in the past wo problem. Tolerating Zosyn well Plan Plan of Care await lymphedema consult Doxy, Zosyn and micafungin for now, wean to po soon Probiotics leg elevation Attending Co-Sign The patient was seen and interviewed as well as examined at the bedside. The chart was reviewed. The case was discussed. Agree with the plan of care. LEONARDA PETER APRN Apr 15, 2019 12:12 CAROLINA GAN MD Apr 15, 2019 12:38
[2019-04-15] MEDS: MICAFUNGIN 100 MG in IV DEXTROSE 5% 100ML 100 ML IV SCH (12:27)
[2019-04-15 14:59] VITALS: BP 122/47
--- NOTE | 2019-04-15 15:29 | PDOC ---
Provider Note Provider Note vss, no temp- labs ok, exam same on current meds- likely po 1-2 days per id BRIANA LAMB MD Apr 15, 2019 15:29
[2019-04-15 19:00] VITALS: BP 124/54
[2019-04-15] MEDS: ZOLPIDEM 5 MG TABLET. PO PRN (21:09)
[2019-04-15 23:00] VITALS: BP 112/44
[2019-04-16 03:00] VITALS: BP 134/55
[2019-04-16] MEDS: PIPERACILLIN/TAZOBACTAM 3.375 GM in IV NORMAL SALINE 50ML 50 ML IV SCH (06:18)
[2019-04-16] MEDS: HYDROcodone/APAP 10/325 1 TAB TABLET PO PRN ×5 (06:18→22:54)
[2019-04-16] MEDS: LEVOTHYROXINE 137 MCG TABLET PO SCH (06:18)
[2019-04-16 07:00] VITALS: BP 139/55
[2019-04-16] MEDS: BUDESONIDE 0.5 MG/2 ML NEBU. NEB SCH ×2 (08:27→20:55)
[2019-04-16] MEDS: IPRATROPIUM BROMIDE 0.5 MG/2.5 ML NEBU. NEB SCH ×4 (08:27→20:54)
[2019-04-16] MEDS: cloNIDine HCL 0.2 MG TABLET PO SCH ×2 (09:26→21:00)
[2019-04-16] MEDS: LOSARTAN POTASSIUM 50 MG TABLET. PO SCH (09:26)
[2019-04-16] MEDS: FUROSEMIDE 40 MG TABLET. PO SCH (09:27)
[2019-04-16] MEDS: DOXYCYCLINE HYCLATE 100 MG TABLET PO SCH ×2 (09:27→20:48)
[2019-04-16] MEDS: GABAPENTIN 300 MG CAPSULE. PO SCH ×3 (09:27→20:48)
[2019-04-16] MEDS: NICOTINE 21MG PATCH. TD SCH (09:29)
[2019-04-16] MEDS: ASPIRIN CHEWABLE 81 MG TABLET. PO SCH (10:31)
[2019-04-16] MEDS: LACTOBACILLUS RHAMNOSUS GG 1 CAPSULE. PO SCH ×2 (10:31→20:48)
[2019-04-16] MEDS: POTASSIUM CHLORIDE 10 MEQ TABLET.ER. PO SCH (10:31)
[2019-04-16] MEDS: FAMOTIDINE 20 MG TABLET. PO SCH (10:31)
[2019-04-16] MEDS: ROFLUMILAST 500 MCG TABLET. PO SCH (10:31)
[2019-04-16] MEDS: DULoxetine HCL 30 MG CAPSULE.DR PO SCH (10:31)
[2019-04-16 10:45] VITALS: BP 132/58
--- NOTE | 2019-04-16 11:17 | PDOC ---
Infectious Disease Note Subjective Subjective Legs feel better Less pain and swelling ROS ROS no n/v/d/ Vital Sign Vital Signs Vital Signs Date Time Temp Pulse Resp B/P (MAP) Pulse Ox O2 Delivery O2 Flow Rate FiO2 04/16/19 10:45 97.5 70 17 132/58 (82) 95 Room Air 97.5 Physical Exam PHYSICAL EXAM GENERAL: Sitting in the chair, alert, eating, legs down HEENT: Oral cavity, pharynx is clear. + dentures. NECK: Supple LUNGS: Decreased in the bases, no wheeze. HEART: S1, S2. ABDOMEN: Soft, nontender EXTREMITIES: No clubbing, cyanosis. 1-2+ lower extremity edema, mild erythema better. + tinea and also has decreased pulses. Tubigrips in place, less swelling SKIN: Otherwise, warm to touch. NEUROLOGIC: Alert, answers questions appropriately PIV Objective Assessment Bilateral LE edema Bilateral LE cellulitits failed Doxy/Keflex -better. Does have some dependent rubor also PAD Tobacco abuse Tinea H/o Bradycardia and PSVT COPD Levaquin intolerance; Says has taken Augmentin in the past wo problem. Tolerating Zosyn well Plan Plan of Care change antibiotics to omnicef leg elevation CAROLINA GAN MD Apr 16, 2019 11:17
[2019-04-16] MEDS: CEFDINIR 300 MG CAPSULE PO SCH ×2 (12:53→20:49)
--- NOTE | 2019-04-16 13:37 | PDOC ---
GENERAL General: vss and afebrile. awake and alert. legs are less swollen and painful per patien t. chest occasional wheeze, heart regular, abdomen benign, edema decreased to 2+ and most of color gone. will continue present with dc when to po. Back surgery needed SANJAY after dc as she is completely crippled by her lumbar spinal stenosis. VITAL SIGNS/I&O Vital Signs/I&O: Vital Signs Date Time Temp Pulse Resp B/P (MAP) Pulse Ox O2 Delivery O2 Flow Rate FiO2 04/16/19 11:45 Room Air 04/16/19 10:45 97.5 70 17 132/58 (82) 95 97.5 I & O 04/15/19 04/15/19 04/16/19 15:00 23:00 07:00 Intake Total 150 ml 450 ml 450 ml Output Total 300 ml Balance 150 ml 450 ml 150 ml ALLERGIES Allergies: Allergies Coded Allergies Type Severity Reaction Last Updated Verified shellfish derived Allergy Severe Rash 02/21/18 Yes Pentazocine Lactate Allergy Intermediate Rash 02/21/18 Yes iodine Allergy Intermediate 09/21/18 Yes ropinirole Allergy Intermediate 05/11/18 Yes varenicline Allergy Intermediate 05/11/18 Yes amoxicillin Adverse Reaction Severe 04/13/19 Yes clavulanic acid Adverse Reaction Severe 04/13/19 Yes tramadol Adverse Reaction Intermediate Nausea and Vomiting 09/21/18 Yes MEDS Medications: Current Medications Medications (Trade) Dose Ordered Sig/Jon Route PRN Reason Start Time Stop Time Status Last Admin Dose Admin Cefdinir (Omnicef) 300 mg BID PO 04/16/19 12:00 04/16/19 12:53 DALIA OJEDA MD Apr 16, 2019 13:37
[2019-04-16 14:58] VITALS: BP 130/60
--- NOTE | 2019-04-16 16:27 | NUR ---
SW following. Discussed with RN. Pt likely discharging tomorrow (04/17/19). Will need lymphedema OT. SW to meet with pt to discuss options tomorrow (04/17/19). RN notified.
[2019-04-16 19:00] VITALS: BP 115/64
[2019-04-16] MEDS: ALBUTEROL SULFATE 2.5 MG/3 ML NEBU. NEB SCH (20:00)
[2019-04-16] MEDS: hydrOXYzine 25 MG TABLET PO PRN (20:51)
[2019-04-16] MEDS ORDERED: ALBUTEROL SULFATE 2.5 MG/3 ML NEBU. NEB PRN (22:00)
[2019-04-16] MEDS: ZOLPIDEM 5 MG TABLET. PO PRN (22:53)
[2019-04-16 23:00] VITALS: BP 125/54
[2019-04-17 03:00] VITALS: BP 105/46
[2019-04-17] MEDS: HYDROcodone/APAP 10/325 1 TAB TABLET PO PRN ×2 (06:20→12:04)
[2019-04-17] MEDS: LEVOTHYROXINE 137 MCG TABLET PO SCH (06:20)
[2019-04-17 07:00] VITALS: BP 131/61
[2019-04-17] MEDS: IPRATROPIUM BROMIDE 0.5 MG/2.5 ML NEBU. NEB SCH ×2 (07:46→11:39)
[2019-04-17] MEDS: BUDESONIDE 0.5 MG/2 ML NEBU. NEB SCH (07:46)
[2019-04-17] MEDS: DULoxetine HCL 30 MG CAPSULE.DR PO SCH (08:46)
[2019-04-17] MEDS: ROFLUMILAST 500 MCG TABLET. PO SCH (08:46)
[2019-04-17] MEDS: LOSARTAN POTASSIUM 50 MG TABLET. PO SCH (08:46)
[2019-04-17] MEDS: FUROSEMIDE 40 MG TABLET. PO SCH (08:46)
[2019-04-17] MEDS: NICOTINE 21MG PATCH. TD SCH (08:46)
[2019-04-17] MEDS: CEFDINIR 300 MG CAPSULE PO SCH (08:46)
[2019-04-17] MEDS: FAMOTIDINE 20 MG TABLET. PO SCH (08:47)
[2019-04-17] MEDS: cloNIDine HCL 0.2 MG TABLET PO SCH (08:47)
[2019-04-17] MEDS: LACTOBACILLUS RHAMNOSUS GG 1 CAPSULE. PO SCH (08:47)
[2019-04-17] MEDS: GABAPENTIN 300 MG CAPSULE. PO SCH (08:47)
[2019-04-17] MEDS: DOXYCYCLINE HYCLATE 100 MG TABLET PO SCH (08:47)
[2019-04-17] MEDS: POTASSIUM CHLORIDE 10 MEQ TABLET.ER. PO SCH (08:47)
[2019-04-17] MEDS: ASPIRIN CHEWABLE 81 MG TABLET. PO SCH (08:47)
--- NOTE | 2019-04-17 09:33 | PDOC ---
Infectious Disease Note Subjective Subjective Legs feel better Less pain and swelling ROS ROS no n/v/d/ Vital Sign Vital Signs Vital Signs Date Time Temp Pulse Resp B/P (MAP) Pulse Ox O2 Delivery O2 Flow Rate FiO2 04/17/19 08:47 64 131/61 04/17/19 07:46 96 Room Air 04/17/19 07:00 98.1 16 98.1 Physical Exam PHYSICAL EXAM GENERAL: Sitting in the chair, alert, eating, legs down HEENT: Oral cavity, pharynx is clear. + dentures. NECK: Supple LUNGS: Decreased in the bases, no wheeze. HEART: S1, S2. ABDOMEN: Soft, nontender EXTREMITIES: No clubbing, cyanosis. 1-2+ lower extremity edema, mild erythema better. + tinea and also has decreased pulses. Tubigrips in place, less swelling SKIN: Otherwise, warm to touch. NEUROLOGIC: Alert, answers questions appropriately PIV Objective Assessment Bilateral LE edema Bilateral LE cellulitits failed Doxy/Keflex -better. Does have some dependent rubor also PAD Tobacco abuse Tinea H/o Bradycardia and PSVT COPD Levaquin intolerance; Says has taken Augmentin in the past wo problem. Tolerati ng Zosyn well Plan Plan of Care omnicef for 5 days leg elevation CAROLINA GAN MD Apr 17, 2019 09:33
[2019-04-17] MEDS ORDERED: DOXY100T PO (09:50)
[2019-04-17] MEDS ORDERED: CEFD300C PO (09:50)
[2019-04-17 10:54] VITALS: BP 135/64
--- NOTE | 2019-04-17 14:14 | NUR ---
Discharge Note: PT DISCHARGED HOME WITH SELF CARE. PT LEFT FACILITY VIA PRIVATE VEHICLE WITH SON-IN-LAW AT 1320. PT STABLE AND ALERT UPON DISCHARGE. PT PIV REMOVED FROM L WRIST WITHOUT COMPLICATIONS, BANDAGE APPLIED. PT WOUND REDRESSED TO L MUÑOZ AND PICTURED BEFORE DISCHARGING. PT EDUCATED ABOUT DISCHARGE INSTRUCTIONS, DISCHARGE MEDICATIONS, AND FOLLOW-UP INSTRUCTIONS. PT TO SET UP PROCEDURE WITH DR. SANDOVAL THROUGH OFFICE AFTER ATB THERAPY COMPLETION FOR BACK SURGERY IN 2-3 WEEKS. PT AWARE. UPON GETTING OUT OF WHEELCHAIR TO ENTER VEHICLE PT WAS CARRYING A VASE OF VAZQUEZ, PT WAS WORRIED ABOUT DROPPING VAZQUEZ AND WASNT PAYING ATTENTION TO THE WHEELCHAIR WHEN GETTING UP, HIT HER L MUÑOZ ON METAL PIECE OF WHEELCHAIR WHICH THEN STARTED BLEEDING. PT REFUSED TO LET ME TAKE A LOOK AT THE MUÑOZ, STATED THAT SHE "WOULD TAKE CARE OF IT AT HOME AND THAT IT WASNT OUR FAULT THAT IT HAPPENED" INFORMED HER TO CLEANSE THE WOUND WHEN GETTING HOME AND TO DRESS IT WITH A BANDAGE AND SOME OTC ATB OINTMENT, PT STATED THAT SHE WOULD BE FINE. TRIED MULTIPLE TIMES TO CHECK THE WOUND BEFORE PT LEFT AND SHE REFUSED ALL TIMES, KEPT STATING SHE WOULD BE FINE. MERY PEÑA Discharge instructions and discharge home medications reviewed with Patient and a copy given. All questions have been answered and understanding verbalized.
--- NOTE | 2019-04-17 16:05 | DS ---
DATE OF DISCHARGE: 04/17/2019 PRIMARY DIAGNOSES: 1. Bilateral lower extremity cellulitis, unresponsive to outpatient therapy. 2. Chronic obstructive pulmonary disease. 3. Severe lumbar spinal stenosis. CHIEF COMPLAINT AND HISTORY OF PRESENT ILLNESS: This 73-year-old white female admitted after failed outpatient treatment with Keflex and doxycycline for bilateral lower extremity cellulitis and edema. SUMMARY OF STAY: The patient was admitted. ID was consulted. Broad-spectrum antibiotics were continued with decreasing cellulitis and edema where she still had some edema at the time of discharge, but cellulitis had mostly resolved. She was transitioned by ID to p.o. Omnicef and doxycycline and felt ready for discharge on the day of dismissal. DISPOSITION: The patient is discharged to home. DIET: Regular. ACTIVITY: As tolerated, office in 1-2 weeks. DISCHARGE MEDICATIONS: Regular home meds plus the Omnicef and doxycycline. We did have Neurosurgery see her during this stay with plans for lumbar decompression surgery in the near future as she is completely crippled by her lumbar spinal stenosis. DAILA OJEDA MD DR: SUNDAR/chato JOB#: [id number] / [id number]
== END 2019-04-17 14:23 | disposition home or self-care (01) | DRG 603 ==
LOC: 5 SOUTH 11:00 → UNDOADMIN 11:00 → 5 SOUTH 14:30
PROVIDERS: ADMIT Family Medicine; ATTEND Family Medicine
DX: L03.115 Cellulitis of right lower limb (principal); L03.116 Cellulitis of left lower limb; J44.9 Chronic obstructive pulmonary disease, unspecified; B35.9 Dermatophytosis, unspecified; E03.9 Hypothyroidism, unspecified; E78.5 Hyperlipidemia, unspecified; F17.200 Nicotine dependence, unspecified, uncomplicated; I10 Essential (primary) hypertension; I48.91 Unspecified atrial fibrillation; I89.0 Lymphedema, not elsewhere classified; M48.061 Spinal stenosis, lumbar region without neurogenic claudication; M71.20 Synovial cyst of popliteal space [Baker], unspecified knee; F32.9 Major depressive disorder, single episode, unspecified; F41.9 Anxiety disorder, unspecified; G62.9 Polyneuropathy, unspecified; G89.29 Other chronic pain; K21.9 Gastro-esophageal reflux disease without esophagitis; M19.90 Unspecified osteoarthritis, unspecified site; T40.605A Adverse effect of unspecified narcotics, initial encounter
CPT/HCPCS: 36415; 80053; 80202; 82565; 85025; 85651; 93880; 93925; 94640; 94760; 99406; J2248; J2543; J3370; J7040; J7050; J7613; J7626; J7644; 97110; 97116; 97140; 97530; 97535; G0378; J7030

== ENCOUNTER → 2019-05-07 | Day surgery (SDC) | payer MEDICARE ==
[2019-04-17 10:54] VITALS: BP 135/64
[~2019-05-07] MED LIST changes: -BUPR150T20 PO; +BUPR150T27 PO; +CEFD300C PO; +DILT180C29 PO; +DOXY100T PO; +DULO60CA6 PO; +FURO-68 PO; +HYDR25TA PO; +IPRA0.2S5 NEB; +KRIL1CAP23 PO; +PRED20TA PO; +ROFL250T PO; +VENTOLIN HFA18 GM INH
[2019-05-07 15:52] LABS: BASO # 0.1 x10^3/uL (0.0-0.2); BASO % 1 % (0-3); EOS # 0.3 x10^3/uL (0.0-0.7); EOS % 3 % (0-3); HEMATOCRIT 33.4 % (36.0-47.0); HEMOGLOBIN 10.7 g/dL (12.0-15.5); LYMPH # 1.8 x10^3/uL (1.0-4.8); LYMPH % 23 % (24-48); MEAN CORPUSCULAR HEMOGLOBIN 25 pg (25-35); MEAN CORPUSCULAR HGB CONC 32 g/dL (31-37); MEAN CORPUSCULAR VOLUME 77 fL (79-100); MONO # 0.7 x10^3/uL (0.0-1.1); MONO % 9 % (0-9); NEUT % 63 % (31-73); PLATELET COUNT 281 x10^3/uL (140-400); RED BLOOD COUNT 4.32 x10^6/uL (3.50-5.40); RED CELL DISTRIBUTION WIDTH 18.5 % (11.5-14.5); WHITE BLOOD COUNT 7.8 x10^3/uL (4.0-11.0)
[2019-05-07 16:02] LABS: PROTHROMBIN TIME PATIENT 13.3 SEC (11.7-14.0)
[2019-05-07 16:33] LABS: ALBUMIN 3.4 g/dL (3.4-5.0); ALBUMIN/GLOBULIN RATIO 0.9 (1.0-1.7); CALCIUM 9.4 mg/dL (8.5-10.1); CREATININE 0.9 mg/dL (0.6-1.0); POTASSIUM 3.9 mmol/L (3.5-5.1); TOTAL BILIRUBIN 0.7 mg/dL (0.2-1.0); TOTAL PROTEIN 7.3 g/dL (6.4-8.2)
--- NOTE | 2019-05-11 15:33 | HP ---
ADMIT DATE: Luis Cedeño dictating for Dr. Rohan Sandoval. DATE OF SURGERY: 05/14/2019 HISTORY OF PRESENT ILLNESS: The patient is a pleasant 73-year-old who has low back and bilateral leg pain. She has numbness in her feet. The problem has been present for 5 years. She has been slowly progressing. She said her leg pain had become severe enough that she was hospitalized a few days recently. Standing increases her pain. She rates her pain as an 8/10. She says she is taking [place] every 4 hours to help control the pain. She underwent epidural steroid injections in 04/2019, which was not helpful. PAST MEDICAL HISTORY: Cancer, headaches, hepatitis A, osteopenia, GERD, COPD, hypertension, depression, bradycardia, hypothyroidism. PAST SURGICAL HISTORY: Lumbar surgery x 2, knee surgery, bilateral carpal tunnel release, parathyroid, ACDF C5-C6, C6-C7 in 06/2013. FAMILY HISTORY: Brain tumor, cancer, heart disease, spine problems, headache. 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 . Smokes half pack per day. Drinks alcohol 1-2 times per week. ALLERGIES: SHELLFISH AND TALWIN. CURRENT MEDICATIONS: Daliresp, levothyroxine, furosemide, diltiazem, Benicar, clonidine, aspirin 81, vitamin D3, gabapentin, prednisone, [place], potassium, pantoprazole, hydroxyzine, duloxetine, lutein. REVIEW OF SYSTEMS: A 12-point review of systems was obtained and is noncontributory except for that mentioned above. PHYSICAL EXAMINATION: NEUROSURGERY EXAMINATION: GENERAL APPEARANCE: Alert, pleasant, no acute distress. HEAD: Normocephalic and atraumatic. SKIN: Warm and dry. MUSCULOSKELETAL: Lumbar paraspinal muscle bulk is normal, restricted range of motion of the lumbar spine, [id number] tenderness of lumbar spine with palpation, normal range of motion of the lower extremities. NEUROLOGIC: Reflexes are present and symmetric in lower extremities bilaterally, negative straight leg raising bilaterally, ambulates with a walker. IMAGING: Reviewed. I reviewed a lumbar MRI scan from 09/29/2018. On that study, there is instrumented fusion and decompression extending from L4 to sacrum. At L3-L4 and more significantly at L2-L3, there is severe lumbar spinal stenosis present. ASSESSMENT: 1. Spinal stenosis, lumbar region with neurogenic claudication. 2. Low back pain. 3. Arthrodesis status. PLAN: I believe the problems at L2-L3 and L3-L4 are responsible for her pain. I recommended a laminectomy at L3-L4 and L2-L3. I did discuss this with her and other treatment options such as a spinal cord stimulator. At this point, I would like to go ahead with surgery. Because of her hardware there may be some issues getting exposure at L3-L4 and I may have to remove a portion of her hardware. I did discuss all of this with her including the technique, risks, and expected postoperative course. She understands. She would like to go ahead. We will make the arrangements. ROHAN SANDOVAL MD DR: LEE/chato JOB#: [id number] / [id number]
== END | disposition home or self-care (01) ==
LOC: SURGPAT 14:40
PROVIDERS: ATTEND Neurological Surgery
DX: Z01.818 Encounter for other preprocedural examination (principal); M48.062 Spinal stenosis, lumbar region with neurogenic claudication; M54.5 Low back pain; I48.91 Unspecified atrial fibrillation; Z98.1 Arthrodesis status
CPT/HCPCS: 36415; 80053; 85025; 85610; 85730; 87641

== ENCOUNTER → 2019-10-12 | Outpatient (CLI) | payer MEDICARE ==
[~2019-10-12] MED LIST changes: +DOCU-153 PO; +GADOTERATE 7.5 MMOL/15ML VIAL. IVP ONE; +IV RINGERS,LACTATED 1000ML 1,000 ML IV SCH; +KETAMINE HCL IN NACL, ISO-OSM 50 MG/5 ML SYRINGE ONE; +MIDAZOLAM HCL/PF 2 MG/2 ML VIAL. ONE; +ONDANSETRON PF 4 MG/2 ML VIAL. IV PRN; +PROCHLORPERAZINE 10 MG/2 ML VIAL. IV PRN; +PROPOFOL 10 MG/ML (20ML) VIAL. IV ONE; +fentaNYL PF VIAL 100 MCG/2 ML VIAL IV PRN; +fentaNYL PF VIAL 100 MCG/2 ML VIAL ONE
[2019-10-12 13:56] LABS: CREATININE 0.8 mg/dL (0.6-1.0); GFR 69.9
[2019-10-12 15:00] VITALS: BP 140/62
--- NOTE | 2019-10-12 15:54 | RAD ---
L spine 3 views INDICATION: Lumbar radiculopathy. COMPARISON: CT lumbar spine without IV contrast 05/14/2019. FINDINGS: AP, lateral and coned-down lateral views of the lumbar spine were obtained. These show similar grade 2 anterolisthesis of L5 on S1 with 5 lumbar type vertebrae noted and postoperative changes from posterior jose a and pedicle screw construct fusion bilaterally at L4, L5 and S1. The bones are diffusely demineralized with marked endplate osteophytic spurring and subchondral sclerosis present at L3-L4. No acute fracture is seen. No aggressive appearing bony lesions identified. The hardware on the AP view suggests subtle. Prosthetic lucency around the tip of the right L5 pedicle screw and the left L5 pedicle screw is slightly more cephalad than the right, encroaching on the L4-5 disc space. Visualized sacroiliac joints show degenerative changes. The hips in the visualized portions of the pubic symphysis are unremarkable. Soft tissues show arterial vascular calcifications. IMPRESSION: Jose A and pedicle screw construct posterior fusion from L4 through S1 with possible mild periprosthetic lucency around the right L5 pedicle screw tip that could reflect early changes of loosening. Attention on follow-up is recommended. No acute fracture or aggressive appearing osseous lesions. Electronically signed by: Isis Lopez MD (10/12/2019 3:51 PM) [id number]
--- NOTE | 2019-10-12 16:00 | RAD ---
MRI Lumbar Spine without and with contrast History: Lumbar radiculopathy Technique: Multiplanar, multi sequential pre and postcontrast MR imaging was performed of the lumbar spine. No axial T2 sequence is available. Comparison: September 29, 2018 Findings: There are again bilateral pedicle screws L4, L5, S1. Pedicle screws at L5 again course in the lateral aspects of the lateral recesses. There is similar old compression deformity of L1, minimal osseous retropulsion superiorly. There is again grade 2 anterior spondylolisthesis at L5-S1, minimal grade 1 anterior spondylolisthesis at L3-4 and T12-L1, negligible posterior subluxation of L1 relative to L2 and L2 relative to L3. There is again advanced degenerative disc disease at L3-4 and to lesser degree at L2-3, minimally at L1-2 and mild disc desiccation at T12-L1. There is again degree of interbody fusion anteriorly at L5-S1. Conus terminates at L1. There is no nodular enhancement of the conus or cauda equina, no significant enhancement in the intervertebral disc spaces. There is again focus of fat in the thecal sac at the S1 level. There are annular tears such as posteriorly at L4-1-2 and anteriorly at T12-L1. T12-L1: Spinal canal and neural foramina are adequate. L1-L2: There is very minimal disc osteophyte complex and bulge. Neural foramina and spinal canal are adequate. L2-L3: There has been posterior decompression. There is more prominent posterior bulge indenting the ventral thecal sac. There is overall mild narrowing of the far lateral recesses greater on the left, central canal now adequate. There is mild circumferential enhancement in the spinal canal likely due to enhancing fibrosis. There is mild to moderate left and mild right neural foramina compromise. L3-L4: There has been posterior decompression. There is some enhancement at site of posterior decompression and also in the lateral recesses bilaterally likely due to enhancing fibrosis. There is facet hypertrophic change. There is minimal residual narrowing of the spinal canal. There is moderate left and fairly severe right neural foramina compromise, contact undersurface exiting right L3 nerve root by disc osteophyte complex and protrusion extending to the proximal extraforaminal region. L4-L5: There has been posterior decompression, spinal canal and neural foramina adequate. L5-S1: There has been posterior decompression. Spinal canal and the left neural foramen are adequate. Right neural foramen is poorly visualized due to artifact created by hardware, again mild moderate to severe narrowing. Impression: 1. There is mild residual narrowing of the spinal canal at L3-4, posterior decompression at this level. There is also mild narrowing of the far lateral recesses greater on the left at L2-3. 2. There is again multilevel abnormal alignment. There is again posterolateral fusion hardware L4-S1. There is multilevel lumbar degenerative disc disease greatest at L3-4. 3. There is lumbar neural foramina compromise as stated, more significant narrowing on the right at L3-4 and L5-S1 and to lesser degree on the left at L3-4 and L2-3. Electronically signed by: Kristian Wills MD (10/12/2019 3:58 PM) [id number]
== END | disposition home or self-care (01) ==
LOC: MRI 14:02
PROVIDERS: ATTEND Neurological Surgery
DX: M48.061 Spinal stenosis, lumbar region without neurogenic claudication (principal); M54.16 Radiculopathy, lumbar region; M43.27 Fusion of spine, lumbosacral region
CPT/HCPCS: 36415; 72100; 72158; 82565; A9575; J2250; J2704; J3010

== ENCOUNTER → 2019-11-14 | Outpatient (CLI) | payer MEDICARE ==
[2019-10-12 15:00] VITALS: BP 140/62
[~2019-11-14] MED LIST changes: -GADOTERATE 7.5 MMOL/15ML VIAL. IVP ONE; -IV RINGERS,LACTATED 1000ML 1,000 ML IV SCH; -KETAMINE HCL IN NACL, ISO-OSM 50 MG/5 ML SYRINGE ONE; -MIDAZOLAM HCL/PF 2 MG/2 ML VIAL. ONE; -ONDANSETRON PF 4 MG/2 ML VIAL. IV PRN; -PROCHLORPERAZINE 10 MG/2 ML VIAL. IV PRN; -PROPOFOL 10 MG/ML (20ML) VIAL. IV ONE; -fentaNYL PF VIAL 100 MCG/2 ML VIAL IV PRN; -fentaNYL PF VIAL 100 MCG/2 ML VIAL ONE
== END | disposition home or self-care (01) ==
LOC: LAB 13:15
PROVIDERS: ATTEND Family Medicine
DX: Z11.59 Encounter for screening for other viral diseases (principal)
CPT/HCPCS: U0003-CS

== ENCOUNTER 2019-11-22 11:36 | Day surgery (SDC) | payer MEDICARE ==
[~2019-11-22 11:36] MED LIST changes: +IV RINGERS,LACTATED 1000ML 1,000 ML IV SCH
[2019-11-22 12:06] VITALS: BP 112/63
[2019-11-22] MEDS ORDERED: PROPOFOL 10 MG/ML (20ML) VIAL. IV ONE (12:16)
--- NOTE | 2019-11-22 12:47 | RAD ---
LUMBAR SPINE WO CONTRAST History: Reason: LUMBAGO / Spl. Instructions: / History: Technique: Multiplanar, multi sequential MR imaging was performed of the lumbar spine. Comparison: MRI October 12, 2019 and September 29, 2018 Findings: Posterior stabilization L4-S1. Grade 2 anterolisthesis L5 on S1, unchanged. Grade 1 anterolisthesis L3 on L4, unchanged. Chronic L1 superior plate compression fracture. No acute fracture. Degenerative endplate changes most prominent L3-L4. Conus terminates at the normal location. No evidence of nerve root clumping. L1-L2: Disc bulge. Mild facet arthropathy. No canal or neuroforaminal narrowing. L2-L3: Broad-based disc bulge. Moderate facet arthropathy. Posterior decompression. Moderate canal narrowing, unchanged. Bilateral severe subarticular recess narrowing with abutment of descending nerve roots. Moderate left and mild right neuroforaminal narrowing, unchanged. L3-L4: Broad-based disc bulge. Posterior decompression. Advanced facet arthropathy. Increased moderate to severe canal narrowing. Severe subarticular recess narrowing. Moderate to severe bilateral neuroforaminal narrowing, right greater than left, unchanged. L4-L5: Posterior decompression. No canal narrowing. No neuroforaminal narrowing. L5-S1: Anterolisthesis. Posterior decompression. No canal narrowing. At least moderate bilateral neuroforaminal narrowing although evaluation is degraded by artifact from hardware. Impression: 1. Postoperative changes the lumbar spine with posterior stabilization L4-S1. 2. Increased superior junctional level L3-L4 spondylosis with increased moderate to severe canal narrowing. 3. Additional multilevel lumbar spondylosis with neuroforaminal narrowing most prominent L3-L4, unchanged. Electronically signed by: Akash Ramos DO (11/22/2019 12:44 PM) [id number]
== END 2019-11-22 12:48 | disposition home or self-care (01) ==
LOC: SURG 11:36
PROVIDERS: ATTEND Anesthesiology
DX: M54.5 Low back pain (principal); M47.816 Spondylosis without myelopathy or radiculopathy, lumbar region; M48.061 Spinal stenosis, lumbar region without neurogenic claudication
CPT/HCPCS: 72148; J2704

== ENCOUNTER → 2019-12-07 | Outpatient (CLI) | payer MEDICARE ==
[2019-11-22 12:06] VITALS: BP 112/63
[~2019-12-07] MED LIST changes: -IV RINGERS,LACTATED 1000ML 1,000 ML IV SCH
--- NOTE | 2019-12-07 16:03 | RAD ---
CT study of the lumbar spine without contrast Clinical indications: Lumbar spine stenosis. Status post fusion. COMPARISON: Lumbar spine MRI study dated November 22, 2019. TECHNIQUE: Noncontrast helical CT scanning of the lumbar spine was performed. Multiplanar 2-D reconstructions were generated. PQRS compliance Statement One or more of the following individualized dose reduction techniques were utilized for this study: 1. Automated exposure control 2. Adjustment of the mA and/or kV according to patient size 3. Use of iterative reconstruction technique FINDINGS: There is a moderate compression fracture of L1 which is unchanged. No acute compression fracture is evident. Transpedicular screws are seen bilaterally at L4 and L5 and S1. The screws seen extending through the pedicles bilaterally at L4. At L5, the screws are seen extending through the medial aspect of the pedicles near the upper lateral recesses on both sides. This is unchanged. At S1, screws are seen extending through the medial aspect of the pedicles near the upper lateral recesses on both sides. Position screws are unchanged from the previous MRI study. There is a grade 2 anterolisthesis of L5-S1 which has not changed significantly from the previous study. In the sagittal images, there is poor definition of the anterior inferior cortex of the L5 vertebral body. This is not seen in the axial and coronal images and may be due to more focal prominent osteopenia. On the previous MRI study, the anterior aspect of L5-S1 disc appeared fused with bone. There is severe degenerative disc space narrowing and subchondral sclerosis and prominent degenerative endplate spurring at L3-4 with a mild grade 1 anterolisthesis. This is unchanged. There is moderate disc space narrowing and degenerative endplate spurring and mild retrolisthesis of L2-3 which is unchanged. Otherwise no discitis is seen. There is a moderate spinal canal stenosis at L2-3 which has been decompressed by a laminectomy. There is streaking artifact at L3-4 related to the surgical hardware. There is a tight spinal canal stenosis at this level which has been decompressed by laminectomy defect. L4-5 spinal canal is partially obscured due to streaking artifact but no tight spinal canal stenosis is seen here. Evaluation for spinal canal stenosis at L5-S1 is difficult due to the extensive streak artifact through here. There appears to be neural foraminal narrowing at L5-S1 which is severe although there is significant streaking artifact throughout here. There is moderate narrowing of the neural foramina bilaterally at L2-3. IMPRESSION: Fusion from L4 down through S1. Stable alignment since lumbar spine MRI study November 22, 2019. Position of L5 and S1 screws are seen extending through medial aspect of the pedicles near the upper aspect of the lateral recesses bilaterally. The position of the screws is unchanged. Retrolisthesis of L2-L3 and grade 1 anterolisthesis of L3-4 and grade 2 anterolisthesis of L5-S1 are unchanged. There is severe narrowing of the neural foramina bilaterally at L5-S1 Moderate narrowing of the neural foramina bilaterally at L2-3. These findings were seen previously on MRI study. Decompressive laminectomy has been performed. Evaluation for spinal canal stenosis at L5-S1 is difficult due to the significant streaking artifact but no significant spinal canal stenosis was seen at this level on the previous MRI study. There is a plaque-like bony spicule within the central aspect of the spinal canal at the S1 level that splits the thecal sac. This was seen on the previous MRI study and is unchanged. Midline posterior soft tissue surgical scarring is seen without soft tissue abscess. Stable moderate compression fracture of L1. Electronically signed by: Ricci Hooper MD (12/07/2019 4:00 PM) [id number]
== END | disposition home or self-care (01) ==
LOC: CT 12:30
PROVIDERS: ATTEND Neurological Surgery
DX: S32.010A Wedge compression fracture of first lumbar vertebra, initial encounter for closed fracture (principal); M48.07 Spinal stenosis, lumbosacral region; X58.XXXA Exposure to other specified factors, initial encounter; Y93.89 Activity, other specified; Y92.89 Other specified places as the place of occurrence of the external cause; Y99.8 Other external cause status
CPT/HCPCS: 72131

== ENCOUNTER → 2021-03-09 | Outpatient (CLI) | payer MEDICARE ==
[~2021-03-09] MED LIST changes: +DOCU-148 PO; -DOCU-153 PO; -DULO60CA6 PO; +DULO60CA7 PO; +LISI10TA16 PO; -LISI10TA2 PO; -OMEP40CA45 PO; +OMEP40CA7 PO
--- NOTE | 2021-03-09 15:28 | RAD ---
Bilateral digital screening mammograms: Reason for examination: Routine screening. Comparison is made to previous mammograms from 07/06/2016 and June 05, 2015. Interpretation was made with the benefit of CAD. Findings: Breast density: Category B. There are scattered areas of fibroglandular density.. There are no new suspicious masses, malignant appearing calcifications or architectural distortions. There is a small oval mass in the lateral aspect of the right breast 3 cm from the nipple which is se en on the 2016 mammogram. Impression: No evidence of malignancy. Recommend routine screening. BI-RADS 2. Benign findings. This patient's information has been entered into a reminder system for the patient to be notified wit h the results of her examination and a target date for the next mammogram. Electronically signed by: Vaishali Rosas MD (03/09/2021 3:26 PM) [id number]
== END ==
LOC: MAMMO 12:27
PROVIDERS: ATTEND Family Medicine
DX: Z12.31 Encounter for screening mammogram for malignant neoplasm of breast (principal)
CPT/HCPCS: 77067